=== PATIENT | female | born 1940 | race African-American/Black ===

== ENCOUNTER 2020-05-07 12:17 | Outpatient (REF) | payer MEDICARE, SELFPAY ==
[2020-05-07 13:22] LABS: MANUAL DIFF FLAG NO
[2020-05-07 13:25] LABS: Basophils Percent Auto 0.4 % (0-2); Eosinophils Absolute Auto 0.1 X10*3/uL (0.0-0.4); Eosinophils Percent Auto 0.9 % (0-4); Hematocrit 47.3 % (37-47); Hemoglobin 15.1 g/dl (12.0-16.0); Imm Gran Abs Auto 0.02 X10*3/uL (0.00-0.03); Imm Gran Pct Auto 0.3 % (0.0-0.4); Lymphocytes Absolute Auto 2.3 X10*3/uL (1.2-4.9); Lymphocytes Percent Auto 32.2 % (20-40); Mean Corpuscular HGB Conc 31.9 g/dl (31.0-35.0); Mean Corpuscular Hemoglobin 29.5 pg (27.0-33.0); Mean Corpuscular Volume 92.4 fL (80-98); Mean Platelet Volume 9.7 fL (9.4-12.3); Monocytes Absolute Auto 0.4 X10*3/uL (0.1-1.2); Monocytes Percent Auto 6.3 % (2-11); Neutrophils Absolute Auto 4.2 X10*3/uL (2.0-8.3); Neutrophils Percent Auto 59.9 % (45-73); Platelet Count 199 X10*3/uL (160-400); Red Blood Count 5.12 X10*6/uL (4.20-5.50); Red Cell Distribution Width 13.4 % (11.0-16.0)
[2020-05-07 13:51] LABS: Alanine Aminotransferase 20 U/L (0-31); Alkaline Phosphatase 80 U/L (39-117); Anion Gap 13 (12-20); Aspartate Amino Transferase 24 U/L (5-31); Bilirubin Total 0.4 mg/dL (0.0-1.0); Blood Urea Nitrogen 13 mg/dL (9-16); Calcium 9.5 mg/dL (8.4-10.2); Carbon Dioxide 31 mmol/L (22-29); Chloride 101 mmol/L (96-108); Cholesterol 158 mg/dL; Estimated Average Glucose 117 mg/dL; Estimated Glomerular Filt Rate > 60; Glucose Fasting 109 mg/dL (60-99); HDL Cholesterol 57 mg/dL; Hemoglobin A1c % 5.7 %; LDL Cholesterol Calculated 88 mg/dl; Potassium 5.2 mmol/l (3.3-5.1); Sodium 140 mmol/L (135-145); Total Protein 6.9 g/dL (6.5-8.0); Triglycerides 67 mg/dL
[2020-05-07 13:59] LABS: Creatinine Urine 173.72 mg/dL; Microalbum/Creatinine Ratio Ur 9.7 ug/mg cr
[2020-05-07 14:12] LABS: Free T4 (Free Thyroxine) 1.03 ng/dL (0.71-1.85); Thyroid Stimulating Hormone 0.67 uIU/mL (0.32-4.0)
[2020-05-07 14:16] LABS: Glucose Urine UA NEG (NEG); Leukocyte Esterase Urine NEG (NEG); Nitrite Urine NEG (NEG); PH 5.5 (5.0-8.0); Specific Gravity - Urine 1.025 (1.005-1.025); Urine Blood 1+ (NEG); Urine Ketones NEG (NEG); Urine Protein NEG (NEG-TRACE)
[2020-05-07 14:19] LABS: Appearance Urine HAZY; Color Urine YELLOW
[2020-05-07 15:06] LABS: Squamous Epithelial Cell Urine TRACE /LPF; WBC Urine 0-2 /HPF (0-4)
[2020-05-07 15:07] LABS: Mucus Urine 2+ /LPF
== END 2020-05-07 12:18 | disposition home or self-care (01) ==
LOC: HO.LAB 12:17
PROVIDERS: PCP Internal Medicine; Visit Provider Internal Medicine
DX: E11.9 Type 2 diabetes mellitus without complications (principal); E78.00 Pure hypercholesterolemia, unspecified; I10 Essential (primary) hypertension; E04.9 Nontoxic goiter, unspecified; R00.2 Palpitations; K21.9 Gastro-esophageal reflux disease without esophagitis
CPT/HCPCS: 36415; 80053; 80061; 81001; 82043; 83036; 84439; 84443; 85025

== ENCOUNTER 2020-12-17 10:30 | Outpatient (REF) | payer MEDICARE, SELFPAY ==
[2020-12-17 11:06] LABS: MANUAL DIFF FLAG NO
[2020-12-17 11:10] LABS: Basophils Percent Auto 0.4 % (0-2); Eosinophils Percent Auto 0.4 % (0-4); Hematocrit 46.1 % (37-47); Imm Gran Abs Auto 0.02 X10*3/uL (0.00-0.03); Imm Gran Pct Auto 0.3 % (0.0-0.4); Lymphocytes Absolute Auto 1.6 X10*3/uL (1.2-4.9); Lymphocytes Percent Auto 22.7 % (20-40); Mean Corpuscular HGB Conc 32.5 g/dl (31.0-35.0); Mean Corpuscular Hemoglobin 30.4 pg (27.0-33.0); Mean Corpuscular Volume 93.3 fL (80-98); Mean Platelet Volume 9.9 fL (9.4-12.3); Monocytes Absolute Auto 0.4 X10*3/uL (0.1-1.2); Monocytes Percent Auto 6.1 % (2-11); Neutrophils Absolute Auto 4.9 X10*3/uL (2.0-8.3); Neutrophils Percent Auto 70.1 % (45-73); Platelet Count 179 X10*3/uL (160-400); Red Blood Count 4.94 X10*6/uL (4.20-5.50); Red Cell Distribution Width 12.8 % (11.0-16.0)
[2020-12-17 11:16] LABS: Glucose Urine UA NEG (NEG); Leukocyte Esterase Urine NEG (NEG); Nitrite Urine NEG (NEG); PH 5.5 (5.0-8.0); Specific Gravity - Urine >= 1.030 (1.005-1.025); UACC Culture Trigger NO; Urine Blood TRACE (NEG); Urine Ketones NEG (NEG); Urine Protein TRACE MG/DL (NEG-TRACE)
[2020-12-17 11:18] LABS: Appearance Urine HAZY; Color Urine YELLOW
[2020-12-17 11:20] LABS: D Dimer 369 NG/ML
[2020-12-17 11:30] LABS: Mucus Urine 1+ /LPF; Squamous Epithelial Cell Urine 1+ /LPF
[2020-12-17 12:03] LABS: Alanine Aminotransferase 18 U/L (0-31); Albumin Level 4.3 g/dL (3.5-5.0); Alkaline Phosphatase 85 U/L (39-117); Anion Gap 11 (12-20); Aspartate Amino Transferase 21 U/L (5-31); Bilirubin Total 0.6 mg/dL (0.0-1.0); Blood Urea Nitrogen 16 mg/dL (9-16); Calcium 9.9 mg/dL (8.4-10.2); Carbon Dioxide 31 mmol/L (22-29); Chloride 104 mmol/L (96-108); Cholesterol 169 mg/dL; Estimated Glomerular Filt Rate > 60; Glucose Fasting 105 mg/dL (60-99); HDL Cholesterol 60 mg/dL; LDL Cholesterol Calculated 97 mg/dl; Potassium 4.7 mmol/L (3.3-5.1); Sodium 141 mmol/L (135-145); Triglycerides 61 mg/dL
[2020-12-17 12:07] LABS: Erythrocyte Sedimentation Rate 4 MM/HR (0-20)
[2020-12-17 12:12] LABS: B Type Natriuretic Peptide 44 pg/mL (<100)
[2020-12-17 12:14] LABS: Creatinine Urine 207.49 mg/dL
[2020-12-17 12:15] LABS: TSH reflex Free T4 0.57 uIU/mL (0.32-4.0)
[2020-12-17 12:32] LABS: Folate 18.1 ng/mL (> or = 4.0); Vitamin B12 599 pg/mL (200-900)
[2020-12-17 14:32] LABS: Estimated Average Glucose 120 mg/dL; Hemoglobin A1C 150.4715 umol/L; Hemoglobin A1c % 5.8 %
== END 2020-12-17 10:31 | disposition home or self-care (01) ==
LOC: HO.LAB 10:30
PROVIDERS: PCP Internal Medicine; Visit Provider Internal Medicine
DX: G62.9 Polyneuropathy, unspecified (principal); E04.9 Nontoxic goiter, unspecified; E78.00 Pure hypercholesterolemia, unspecified; R00.2 Palpitations; E11.9 Type 2 diabetes mellitus without complications; I10 Essential (primary) hypertension; K21.9 Gastro-esophageal reflux disease without esophagitis; R60.0 Localized edema; F17.200 Nicotine dependence, unspecified, uncomplicated
CPT/HCPCS: 36415; 80053; 80061; 81001; 82043; 82607; 82746; 83036; 83880; 84443; 85025; 85379; 85652

== ENCOUNTER 2021-03-26 11:57 | Outpatient (REF) | payer MEDICARE, SELFPAY ==
[2021-03-26 12:11] LABS: MANUAL DIFF FLAG NO
[2021-03-26 12:44] LABS: Basophils Percent Auto 0.3 % (0-2); Eosinophils Absolute Auto 0.1 X10*3/uL (0.0-0.4); Eosinophils Percent Auto 0.8 % (0-4); Hematocrit 47.2 % (37.0-47.0); Hemoglobin 15.1 g/dl (12.0-16.0); Imm Gran Abs Auto 0.01 X10*3/uL (0.00-0.03); Imm Gran Pct Auto 0.2 % (0.0-0.4); Lymphocytes Absolute Auto 1.7 X10*3/uL (1.2-4.9); Lymphocytes Percent Auto 28.5 % (20-40); Mean Corpuscular Hemoglobin 30.4 pg (27.0-33.0); Mean Platelet Volume 9.6 fL (9.4-12.3); Monocytes Absolute Auto 0.5 X10*3/uL (0.1-1.2); Neutrophils Absolute Auto 3.8 x10*3/uL (2.0-8.3); Neutrophils Percent Auto 62.2 % (45-73); Platelet Count 170 X10*3/uL (160-400); Red Blood Count 4.97 X10*6/uL (4.20-5.50); Red Cell Distribution Width 12.8 % (11.0-16.0); White Blood Count 6.1 X10*3/uL (4.8-10.8)
[2021-03-26 13:00] LABS: Estimated Average Glucose 126 mg/dL
[2021-03-26 13:18] LABS: Alanine Aminotransferase 18 U/L (0-31); Albumin Level 4.2 g/dL (3.5-5.0); Alkaline Phosphatase 83 U/L (39-117); Anion Gap 12 (12-20); Aspartate Amino Transferase 21 U/L (5-31); Bilirubin Total 0.6 mg/dL (0.0-1.0); Blood Urea Nitrogen 16 mg/dL (9-16); Calcium 9.9 mg/dL (8.4-10.2); Carbon Dioxide 32 mmol/L (22-29); Chloride 103 mmol/L (96-108); Cholesterol 177 mg/dL; Estimated Glomerular Filt Rate > 60; Glucose Fasting 122 mg/dL (60-99); HDL Cholesterol 58 mg/dL; LDL Cholesterol Calculated 102 mg/dl; Potassium 4.8 mmol/L (3.3-5.1); Sodium 142 mmol/L (135-145); Total Protein 7.1 g/dL (6.5-8.0); Triglycerides 85 mg/dL
[2021-03-26 13:42] LABS: TSH reflex Free T4 0.75 uIU/mL (0.32-4.0); Vitamin D 25-OH Total 36.8 ng/mL (>30)
[2021-03-26 13:52] LABS: Appearance Urine HAZY; Color Urine YELLOW; Glucose Urine UA NEG (NEG); Leukocyte Esterase Urine NEG (NEG); Nitrite Urine NEG (NEG); PH 6.5 (5.0-8.0); Specific Gravity - Urine 1.015 (1.005-1.025); UACC Culture Trigger NO; Urine Blood 2+ (NEG); Urine Ketones NEG (NEG); Urine Protein NEG (NEG-TRACE)
[2021-03-26 14:03] LABS: Squamous Epithelial Cell Urine 2+ /LPF; WBC Urine 0-2 /HPF (0-4)
[2021-03-26 14:04] LABS: Mucus Urine 1+ /LPF
[2021-03-26 14:17] LABS: Microalbum/Creatinine Ratio Ur 21.1 ug/mg cr
== END 2021-03-26 11:58 | disposition home or self-care (01) ==
LOC: HO.LAB 11:57
PROVIDERS: PCP Internal Medicine; Visit Provider Internal Medicine
DX: E78.00 Pure hypercholesterolemia, unspecified (principal); I10 Essential (primary) hypertension; E11.9 Type 2 diabetes mellitus without complications; E55.9 Vitamin D deficiency, unspecified
CPT/HCPCS: 36415; 80053; 80061; 81001; 82043; 82306; 83036; 84443; 85025

== ENCOUNTER 2021-07-22 12:01 | Outpatient (REF) | payer MEDICARE, SELFPAY ==
[2021-07-22 12:27] LABS: MANUAL DIFF FLAG NO
[2021-07-22 12:36] LABS: Basophils Percent Auto 0.3 % (0-2); Eosinophils Absolute Auto 0.1 X10*3/uL (0.0-0.4); Eosinophils Percent Auto 0.9 % (0-4); Hemoglobin 15.3 g/dl (12.0-16.0); Imm Gran Abs Auto 0.01 X10*3/uL (0.00-0.03); Imm Gran Pct Auto 0.1 % (0.0-0.4); Lymphocytes Percent Auto 29.7 % (20-40); Mean Corpuscular HGB Conc 32.6 g/dl (31.0-35.0); Mean Corpuscular Hemoglobin 30.4 pg (27.0-33.0); Mean Corpuscular Volume 93.4 fL (80.0-98.0); Mean Platelet Volume 9.1 fL (9.4-12.3); Monocytes Absolute Auto 0.5 X10*3/uL (0.1-1.2); Monocytes Percent Auto 7.6 % (2-11); Neutrophils Absolute Auto 4.2 x10*3/uL (2.0-8.3); Neutrophils Percent Auto 61.4 % (45-73); Platelet Count 170 X10*3/uL (160-400); Red Blood Count 5.03 X10*6/uL (4.20-5.50); Red Cell Distribution Width 12.9 % (11.0-16.0); White Blood Count 6.8 X10*3/uL (4.8-10.8)
[2021-07-22 13:10] LABS: Estimated Average Glucose 120 mg/dL; Hemoglobin A1c % 5.8 %
[2021-07-22 13:19] LABS: Alanine Aminotransferase 15 U/L (0-31); Albumin Level 4.1 g/dL (3.5-5.0); Alkaline Phosphatase 80 U/L (39-117); Anion Gap 12 (12-20); Aspartate Amino Transferase 20 U/L (5-31); Bilirubin Total 0.5 mg/dL (0.0-1.0); Blood Urea Nitrogen 15 mg/dL (9-16); Carbon Dioxide 31 mmol/L (22-29); Chloride 104 mmol/L (96-108); Cholesterol 161 mg/dL; Estimated Glomerular Filt Rate > 60; Glucose Fasting 107 mg/dL (60-99); HDL Cholesterol 57 mg/dL; LDL Cholesterol Calculated 92 mg/dl; Potassium 5.3 mmol/L (3.3-5.1); Sodium 142 mmol/L (135-145); Total Protein 6.9 g/dL (6.5-8.0); Triglycerides 61 mg/dL
[2021-07-22 13:22] LABS: TSH reflex Free T4 0.67 uIU/mL (0.32-4.0); Vitamin D 25-OH Total 33.4 ng/mL (>30)
== END 2021-07-22 12:02 | disposition home or self-care (01) ==
LOC: HO.LAB 12:01
PROVIDERS: PCP Internal Medicine; Visit Provider Internal Medicine
DX: E78.00 Pure hypercholesterolemia, unspecified (principal); I10 Essential (primary) hypertension; E11.9 Type 2 diabetes mellitus without complications; E55.9 Vitamin D deficiency, unspecified
CPT/HCPCS: 36415; 80053; 80061; 82306; 83036; 84443; 85025

== ENCOUNTER 2021-12-08 10:04 | Outpatient (REF) | payer MEDICARE, SELFPAY ==
[2021-12-08 10:29] LABS: MANUAL DIFF FLAG NO
[2021-12-08 10:45] LABS: Basophils Percent Auto 0.5 % (0-2); Eosinophils Absolute Auto 0.1 X10*3/uL (0.0-0.4); Eosinophils Percent Auto 1.6 % (0-4); Hematocrit 48.2 % (37.0-47.0); Hemoglobin 15.4 g/dl (12.0-16.0); Imm Gran Abs Auto 0.01 X10*3/uL (0.00-0.03); Imm Gran Pct Auto 0.2 % (0.0-0.4); Lymphocytes Absolute Auto 1.5 X10*3/uL (1.2-4.9); Lymphocytes Percent Auto 27.4 % (20-40); Mean Corpuscular Hemoglobin 29.9 pg (27.0-33.0); Mean Corpuscular Volume 93.6 fL (80.0-98.0); Mean Platelet Volume 9.4 fL (9.4-12.3); Monocytes Absolute Auto 0.3 X10*3/uL (0.1-1.2); Monocytes Percent Auto 6.1 % (2-11); Neutrophils Absolute Auto 3.6 x10*3/uL (2.0-8.3); Neutrophils Percent Auto 64.2 % (45-73); Platelet Count 190 X10*3/uL (160-400); Red Blood Count 5.15 X10*6/uL (4.20-5.50); Red Cell Distribution Width 13.2 % (11.0-16.0); White Blood Count 5.5 X10*3/uL (4.8-10.8)
[2021-12-08 10:54] LABS: Estimated Average Glucose 126 mg/dL
[2021-12-08 11:17] LABS: Alanine Aminotransferase 14 U/L (0-31); Albumin Level 4.1 g/dL (3.5-5.0); Alkaline Phosphatase 79 U/L (39-117); Anion Gap 15 (12-20); Aspartate Amino Transferase 21 U/L (5-31); Bilirubin Total 0.6 mg/dL (0.0-1.0); Blood Urea Nitrogen 15 mg/dL (9-16); Calcium 9.7 mg/dL (8.4-10.2); Carbon Dioxide 30 mmol/L (22-29); Chloride 102 mmol/L (96-108); Cholesterol 187 mg/dL; Estimated Glomerular Filt Rate > 60; Glucose Fasting 130 mg/dL (60-99); HDL Cholesterol 64 mg/dL; LDL Cholesterol Calculated 110 mg/dl; Potassium 5.2 mmol/L (3.3-5.1); Sodium 142 mmol/L (135-145); Total Protein 7.1 g/dL (6.5-8.0); Triglycerides 68 mg/dL
[2021-12-08 11:43] LABS: TSH reflex Free T4 0.88 uIU/mL (0.32-4.0); Vitamin D 25-OH Total 33.1 ng/mL (>30)
== END 2021-12-08 10:05 | disposition home or self-care (01) ==
LOC: HO.LAB 10:04
PROVIDERS: PCP Internal Medicine; Visit Provider Internal Medicine
DX: E11.9 Type 2 diabetes mellitus without complications (principal); I10 Essential (primary) hypertension; E78.00 Pure hypercholesterolemia, unspecified; E55.9 Vitamin D deficiency, unspecified
CPT/HCPCS: 36415; 80053; 80061; 82306; 83036; 84443; 85025

== ENCOUNTER → 2022-01-06 13:07 | Outpatient (BNVA) | payer MEDICARE, SELFPAY | PROVIDERS: PCP Internal Medicine; Visit Provider Surgery Vascular Surgery | DX: I83.11 Varicose veins of right lower extremity with inflammation (principal); L97.929 Non-pressure chronic ulcer of unspecified part of left lower leg with unspecified severity; L97.919 Non-pressure chronic ulcer of unspecified part of right lower leg with unspecified severity | CPT/HCPCS: 99202 ==

== ENCOUNTER 2022-01-14 12:44 | Outpatient (RCR) | payer MEDICARE, SELFPAY | END 2022-01-15 11:07 | disposition home or self-care (01) | LOC: HO.WCC 12:44 | PROVIDERS: PCP Internal Medicine; Visit Provider Physician Assistant | DX: E11.622 Type 2 diabetes mellitus with other skin ulcer (principal); I87.333 Chronic venous hypertension (idiopathic) with ulcer and inflammation of bilateral lower extremity; L97.829 Non-pressure chronic ulcer of other part of left lower leg with unspecified severity; L97.819 Non-pressure chronic ulcer of other part of right lower leg with unspecified severity; B87.1 Wound myiasis; F17.210 Nicotine dependence, cigarettes, uncomplicated; Z79.84 Long term (current) use of oral hypoglycemic drugs | CPT/HCPCS: 99213 ==

== ENCOUNTER 2022-01-14 16:15 | Inpatient (IN) | payer MEDICARE, SELFPAY ==
--- NOTE | ~2022-01-14 | US_ITS ---
EXAMINATION: US VENOUS ULTRASOUND WITH DOPPLER LOWER EXTREMITY, BILATERAL CLINICAL INFORMATION: Swelling. Rule out DVT and abscess COMPARISON: None TECHNIQUE: Ultrasound of the deep veins is performed from the hip to the calf with compression sonography and color and pulse Doppler assessment. Spectral analysis with color-flow imaging is performed. FINDINGS: RIGHT: There is normal venous compression and respiratory variation and augmented flow. The visualized common femoral vein, superficial femoral vein, profunda femoral vein, popliteal vein, and the trifurcation region shows no evidence of deep venous thrombosis. LEFT: There is normal venous compression and respiratory variation and augmented flow. The visualized common femoral vein, superficial femoral vein, profunda femoral vein, popliteal vein, and the trifurcation region shows no evidence of deep venous thrombosis. No Bonilla's cyst or abscess. US/US venous duplex LE BI IMPRESSION: No DVT demonstrated in the bilateral lower extremity. No abscess seen.
--- NOTE | ~2022-01-14 | XR_ITS ---
EXAMINATION: XR CHEST CLINICAL INFORMATION: Hypoxia COMPARISON: 10/04/2018 TECHNIQUE: Frontal view of the chest was obtained. FINDINGS: Again noted are hyperinflated lungs consistent with COPD with flattening of the diaphragms. Heart size normal. No infiltrates, effusions, lung masses or pneumothorax is seen. Since the prior study, the patient has lost considerable weight. XR/XR chest 1V IMPRESSION: COPD. No acute intrathoracic disease. Significant interval weight loss.
[2022-01-14 17:00] VITALS: BP 128/68; PULSE 79; RESP 18; TEMP 37.2; O2SAT 88; BMI 17.2
--- NOTE | 2022-01-14 17:14 | ECG_ITS ---
Test Reason : LOW 02 STAT Blood Pressure : / mmHG Vent. Rate : 076 BPM Atrial Rate : 076 BPM P-R Int : 106 ms QRS Dur : 068 ms QT Int : 348 ms P-R-T Axes : 089 060 037 degrees QTc Int : 391 ms Sinus rhythm with short MN with Premature atrial complexes Nonspecific T wave abnormality Abnormal ECG When compared with ECG of 21-JUN-2014 15:23, Premature atrial complexes are now Present Questionable change in QRS axis Nonspecific T wave abnormality is now Present Referred By: Stephanie Infante Electronically Signed By:TIEN CAAL
[2022-01-14 18:52] LABS: MANUAL DIFF FLAG NO
--- NOTE | 2022-01-14 18:58 | ED_ITS ---
HPI - General Adult General Chief complaint: General Medical Stated complaint: ?infection in legs..swollen sent from dr office Time Seen by Provider: 01/14/22 17:18 Source: patient Mode of arrival: ambulatory Limitations: no limitations History of Present Illness HPI narrative: Patient comes to the emergency room from the wound clinic. Patient has chronic venous ulcers, today it was the 1st day that she had an appointment at the Wound Clinic. Patient has maggots in her right leg, she was sent to the emergency room for further management. Patient denies fever chills. Related Data Home Medications Medication Instructions Recorded Confirmed albuterol sulfate 90 mcg/actuation 2 puff inhalation Q6H PRN 05/10/20 12/09/21 aerosol inhaler (ProAir HFA) Previous Rx's Medication Instructions Recorded miscellaneous medical supply See Rx Instructions miscellaneous 01/13/21 .COMPLEX #1 ea compr.stocking,knee,long,small #12 ea 02/17/21 ezetimibe 10 mg-simvastatin 80 mg 1 tab PO DAILY #90 tabs 03/25/21 tablet glyburide 2.5 mg tablet 2.5 mg PO QAM #90 tabs 10/13/21 doxycycline monohydrate 100 mg 100 mg PO BID 14 days #28 caps 12/09/21 capsule metformin 500 mg tablet 500 mg PO BID #60 tabs 12/21/21 Allergies Allergy/AdvReac Type Severity Reaction Status Date / Time penicillin V Allergy Unknown anaphylaxis Verified 01/06/22 13:13 Penicillins [PENICILLINS] Allergy Unknown HEART STOPS Verified 01/06/22 13:13 Review of Systems Review of Systems: Constitutional : No Weight loss, No Fever, No Chills, No Night Sweats, No Fatigue, No Malaise ENT/Mouth : No Hearing loss, No Ear Pain, No Nasal Congestion, No Sinus Pain, No Hoarseness, No sore throat, No Rhinorrhea, No Swallowing Difficulty Eyes: No Eye Pain, No Swelling, No Redness, No Foreign Body, No Discharge, No Vision Changes Cardiovascular : No Chest Pain, No SOB, No Dyspnea on Exertion, No Orthopnea, No Edema, No Palpitations Respiratory : No Cough, No Sputum, No Wheezing, No Smoke Exposure, No Dyspnea Gastrointestinal : No Nausea, No Vomiting, No Diarrhea, No Constipation, No abdominal Pain, No Hematochezia, No Melena Genitourinary : no irregular bleeding, No Dysuria, No Urinary Frequency, No He maturia, No Urinary Incontinence, No Urgency, No Flank Pain, No Urinary Flow Changes, No Hesitancy Musculoskeletal : No joint pain, No Myalgias, No Joint Swelling Skin : Complaining of chronic venous ulcers, possibly infected Neuro : No Weakness, No Numbness, No Paresthesias, No Loss of Consciousness, No Dizziness, No Headache Psych : No Anxiety/Panic, No Depression, No SI/HI/AH/VH, No Social Issues, Heme/Lymph: No Bruising, No Bleeding,No Lymphadenopathy Endocrine : No Polyuria, No Polydipsia, No Temperature Intolerance [facility] Past Medical History Medical History Anxiety Benign essential hypertension COPD (chronic obstructive pulmonary disease) Diabetes mellitus Diffuse goiter GERD without esophagitis Intermittent palpitations Peripheral polyneuropathy Pure hypercholesterolemia Smoker Surgical History History of appendectomy History of laparoscopic cholecystectomy History of tonsillectomy History of total abdominal hysterectomy S/P BSO (bilateral salpingo-oophorectomy) Family History Family History Father No problems noted. Mother No problems noted. Other Substance abuse Social History Social History Housing: House Alcohol intake: former Patient Tobacco Use Status: Current everyday Tobacco user Cigarettes Per Day: 10 e-Cigarette/Vaping Use: Never Used Second Hand Smoke Exposure: Yes Advance Directives: No Advance Directives Information Provided: No service: No Current occupational status: retired Cognitive needs: No Hearing needs: No Vision needs: Yes (reading glasses) Physical Exam ED Vital Signs: Vital Signs - 24 hr 01/14/22 17:00 01/14/22 19:20 Temperature 99.0 F 98.0 F Pulse Rate 79 81 Respiratory Rate 18 18 Blood Pressure 128/68 136/60 Pulse Oximetry 88 L 91 L Oxygen Delivery Method Room Air Room Air BMI result Body Mass Index 17.2 Const Other: Appearance: Alert. Oriented X3. No acute distress. Eyes: Pupils equal, round and reactive to light. ENT: Pharynx normal. Neck: Normal inspection. Neck supple. No lymph nodes noted. No crepitus CVS: Normal heart rate and rhythm. Pulses normal. Normal S1 and S2 Respiratory: No respiratory distress. Breath sounds normal. No Wheezing. No rales Abdomen: Soft and nontender. No rigidity. No distention. Skin: Skin warm and dry. Normal skin color. Normal skin turgor. Extremities: +1 pitting edema bilaterally. Patient has chronic venous ulcers in both legs. However, the right leg has maggots Neuro: Oriented X 3. No motor deficit. No sensory deficit. Moving all extremities. No slurred speech. CN 2 through 12 grossly intact Psych: calm, cooperative, normal affect Course Course Course Narrative: Patient's white blood cell count and lactic acid within normal limits. Patient does not have a fever, blood pressure within normal limits. Sepsis not suspected. The wound was clean with hydrogen peroxide, the the tissue was debrided. I discussed the patient with Dr. Negro, patient has very poor follow-up and care at home, requesting that the patient gets admitted. Patient is to be NPO after midnight Patient was started on vancomycin Medical Decision Making Lab Data Result diagrams: 01/14/22 18:45 01/14/22 19:18 Labs: Lab Results 01/14/22 01/14/22 01/14/22 Range/Units 18:45 18:45 18:45 WBC 7.9 (4.8-10.8) X10*3/uL RBC 4.90 (4.20-5.50) X10*6/uL Hgb 14.8 (12.0-16.0) g/dl Hct 44.8 (37.0-47.0) % MCV 91.4 (80.0-98.0) fL MCH 30.2 (27.0-33.0) pg MCHC 33.0 (31.0-35.0) g/dl RDW 13.2 (11.0-16.0) % Plt Count 177 (160-400) X10*3/uL MPV 9.2 L (9.4-12.3) fL Immature Gran % (Auto) 0.6 H (0.0-0.4) % Neut % (Auto) 74.1 H (45-73) % Lymph % (Auto) 17.9 L (20-40) % Alexander % (Auto) 6.5 (2-11) % Eos % (Auto) 0.6 (0-4) % Baso % (Auto) 0.3 (0-2) % Lymph # (Auto) 1.4 (1.2-4.9) X10*3/uL Alexander # (Auto) 0.5 (0.1-1.2) X10*3/uL Eos # (Auto) 0.1 (0.0-0.4) X10*3/uL Baso # (Auto) 0.0 (0.0-0.2) X10*3/uL Abs Immat Gran (auto) 0.05 H (0.00-0.03) X10*3/uL Absolute Neuts (auto) 5.8 (2.0-8.3) x10*3/uL Absolute Nucleated RBC 0.000 (0.0-0.012) X10*3/uL Nucleated RBC % (auto) 0.0 (0.0-0.2) /100WBC Sodium (135-145) mmol/L Potassium (3.3-5.1) mmol/L Chloride (96-108) mmol/L Carbon Dioxide (22-29) mmol/L Anion Gap (12-20) BUN (9-16) mg/dL Creatinine (0.5-1.4) mg/dL Estim Creat Clear Calc Estimated GFR Random Glucose (60-115) mg/dL Lactic Acid 1.5 (0.5-2.0) mmol/L Calcium (8.4-10.2) mg/dL Total Bilirubin (0.0-1.0) mg/dL AST (5-31) U/L ALT (0-31) U/L Alkaline Phosphatase (39-117) U/L Total Protein (6.5-8.0) g/dL Albumin (3.5-5.0) g/dL COVID-19 (VINAY) Negative (Negative) COVID-19 Clin Com See Note 01/14/22 Range/Units 19:18 WBC (4.8-10.8) X10*3/uL RBC (4.20-5.50) X10*6/uL Hgb (12.0-16.0) g/dl Hct (37.0-47.0) % MCV (80.0-98.0) fL MCH (27.0-33.0) pg MCHC (31.0-35.0) g/dl RDW (11.0-16.0) % Plt Count (160-400) X10*3/uL MPV (9.4-12.3) fL Immature Gran % (Auto) (0.0-0.4) % Neut % (Auto) (45-73) % Lymph % (Auto) (20-40) % Alexander % (Auto) (2-11) % Eos % (Auto) (0-4) % Baso % (Auto) (0-2) % Lymph # (Auto) (1.2-4.9) X10*3/uL Alexander # (Auto) (0.1-1.2) X10*3/uL Eos # (Auto) (0.0-0.4) X10*3/uL Baso # (Auto) (0.0-0.2) X10*3/uL Abs Immat Gran (auto) (0.00-0.03) X10*3/uL Absolute Neuts (auto) (2.0-8.3) x10*3/uL Absolute Nucleated RBC (0.0-0.012) X10*3/uL Nucleated RBC % (auto) (0.0-0.2) /100WBC Sodium 143 (135-145) mmol/L Potassium 5.0 (3.3-5.1) mmol/L Chloride 103 (96-108) mmol/L Carbon Dioxide 27 (22-29) mmol/L Anion Gap 18 (12-20) BUN 10 (9-16) mg/dL Creatinine 0.76 (0.5-1.4) mg/dL Estim Creat Clear Calc 41.7 Estimated GFR > 60 Random Glucose 104 (60-115) mg/dL Lactic Acid (0.5-2.0) mmol/L Calcium 9.5 (8.4-10.2) mg/dL Total Bilirubin 0.2 (0.0-1.0) mg/dL AST 21 (5-31) U/L ALT 16 (0-31) U/L Alkaline Phosphatase 73 (39-117) U/L Total Protein 6.5 (6.5-8.0) g/dL Albumin 3.9 (3.5-5.0) g/dL COVID-19 (VINAY) (Negative) COVID-19 Clin Com Critical Care Time Critical Care Time Critical Care Time: Yes Total Critical Care Time: 30 Attestation: I have personally provided critical care time. Time includes review of lab data, radiology results, discussion with consultants, and monitoring for potential decompensation. Intervention performed as documented. Discharge Plan Discharge Clinical Impression: troy Jimenez Patient Disposition: Admitted As Inpatient
[2022-01-14 19:02] LABS: Basophils Percent Auto 0.3 % (0-2); Eosinophils Absolute Auto 0.1 X10*3/uL (0.0-0.4); Eosinophils Percent Auto 0.6 % (0-4); Hematocrit 44.8 % (37.0-47.0); Hemoglobin 14.8 g/dl (12.0-16.0); Imm Gran Abs Auto 0.05 X10*3/uL (0.00-0.03); Imm Gran Pct Auto 0.6 % (0.0-0.4); Lymphocytes Absolute Auto 1.4 X10*3/uL (1.2-4.9); Lymphocytes Percent Auto 17.9 % (20-40); Mean Corpuscular Hemoglobin 30.2 pg (27.0-33.0); Mean Corpuscular Volume 91.4 fL (80.0-98.0); Mean Platelet Volume 9.2 fL (9.4-12.3); Monocytes Absolute Auto 0.5 X10*3/uL (0.1-1.2); Monocytes Percent Auto 6.5 % (2-11); Neutrophils Absolute Auto 5.8 x10*3/uL (2.0-8.3); Neutrophils Percent Auto 74.1 % (45-73); Platelet Count 177 X10*3/uL (160-400); Red Cell Distribution Width 13.2 % (11.0-16.0); White Blood Count 7.9 X10*3/uL (4.8-10.8)
[2022-01-14 19:08] LABS: Lactic Acid 1.5 mmol/L (0.5-2.0)
[2022-01-14 19:10] LABS: COVID-19 Test Negative (Negative)
[2022-01-14 19:20] VITALS: BP 136/60; PULSE 81; RESP 18; TEMP 36.7; O2SAT 91
[2022-01-14 19:43] LABS: Alanine Aminotransferase 16 U/L (0-31); Albumin Level 3.9 g/dL (3.5-5.0); Alkaline Phosphatase 73 U/L (39-117); Anion Gap 18 (12-20); Aspartate Amino Transferase 21 U/L (5-31); Bilirubin Total 0.2 mg/dL (0.0-1.0); Blood Urea Nitrogen 10 mg/dL (9-16); Calcium 9.5 mg/dL (8.4-10.2); Carbon Dioxide 27 mmol/L (22-29); Chloride 103 mmol/L (96-108); Creatinine Clr Calc Pharmacy 41.7; Estimated Glomerular Filt Rate > 60; Glucose Random 104 mg/dL (60-115); Sodium 143 mmol/L (135-145); Total Protein 6.5 g/dL (6.5-8.0)
--- NOTE | 2022-01-14 20:06 | PM.IMHP ---
History of Present Illness Date of Service: 01/14/22 Chief Complaint: leg wounds 81-year-old female with a past medical history of diabetes, varicose veins, chronic bilateral lymphedema, anxiety, depression, bilateral leg wounds-follows with Wound Clinic, tobacco dependence, COPD, hypertension, peripheral neuropathy presented to the hospital today with a chief complaint of bilateral leg wounds. Patient mentions that she does not check on her wound state likely; has called her vascular surgery Dr. Dr. Negro who suggested her to go to the clinic; after patient was being seen in the clinic patient was supposed to go to the ER given left leg wounds has maggots. Patient denies any pain. Reports she has swelling but always has swelling. Denies any fevers. Denies any chest pain or palpitations. Denies any GI symptoms. Reports he is independent of ADLs. Review of all other systems is negative except mentioned above ER course: Per ER team patient noted to have bilateral legs, left leg wounds have maggots in place; had debridement done with cleaning of the wounds; discussed with Dr. Negro-who suggested admission to the hospital for IV antibiotics and possible further debridement in the morning. Recommended to give the patient NPO. Dr. Negro also mentioned that patient has for home conditions. Labs were essentially benign, patient was afebrile; patient was given IV vancomycin. Admitted to the hospital for further management [facility] Medical History Anxiety Benign essential hypertension COPD (chronic obstructive pulmonary disease) Diabetes mellitus Diffuse goiter GERD without esophagitis Intermittent palpitations Peripheral polyneuropathy Pure hypercholesterolemia Smoker Family History Father No problems noted. Mother No problems noted. Other Substance abuse Surgical History History of appendectomy History of laparoscopic cholecystectomy History of tonsillectomy History of total abdominal hysterectomy S/P BSO (bilateral salpingo-oophorectomy) Social History Housing: House Alcohol intake: former Patient Tobacco Use Status: Current everyday Tobacco user Cigarettes Per Day: 10 e-Cigarette/Vaping Use: Never Used Second Hand Smoke Exposure: Yes Advance Directives: No Advance Directives Information Provided: No service: No Current occupational status: retired Cognitive needs: No Hearing needs: No Vision needs: Yes (reading glasses) Meds Allergies Allergy/AdvReac Type Severity Reaction Status Date / Time penicillin V Allergy Unknown anaphylaxis Verified 01/06/22 13:13 Penicillins [PENICILLINS] Allergy Unknown HEART STOPS Verified 01/06/22 13:13 Active Medications: Current Medications Vancomycin HCl 1,000 mg/ (Sodium Chloride) 270 mls @ 270 mls/hr IV ONCE ONE Stop: 01/14/22 20:56 Pharmacy Consult (Consult Rx Vancomycin Dosing) 1 each MISCELLANE DAILY PRN PRN Reason: Consult order Home Medications Medication Instructions Recorded Confirmed Last Taken Type albuterol sulfate 90 mcg/actuation 2 puff inhalation Q6H PRN Wheezing 05/10/20 01/14/22 01/14/22 09:00 History aerosol inhaler (ProAir HFA) Physical Exam Vital Signs and Narrative: Vital Signs: Last Vital Signs Temp 98.0 F 01/14/22 19:20 Pulse 81 01/14/22 19:20 Resp 18 01/14/22 19:20 BP 136/60 01/14/22 19:20 Pulse Ox 91 L 01/14/22 19:20 O2 Del Method 01/14/22 19:20 BMI result Body Mass Index 17.2 Gen: Appears be in no acute distress HEENT: NCAT, Moist mucosa. Pulmonary: Vesicular breath sounds, fair air entry CVS: Normal S1-S2 Abdomen: BS+, Soft, Nontender Extremities: Warm well perfused; left leg wound as shown in the picture below Neuro: Alert and awake. Results Labs CBC and Chem 7: 01/14/22 18:45 01/14/22 19:18 Labs: Laboratory Results - last 24 hr 01/14/22 01/14/22 01/14/22 18:45 18:45 18:45 MCV 91.4 MCH 30.2 MCHC 33.0 RDW 13.2 Plt Count 177 MPV 9.2 L Immature Gran % (Auto) 0.6 H Neut % (Auto) 74.1 H Lymph % (Auto) 17.9 L [place] % (Auto) 6.5 Eos % (Auto) 0.6 Baso % (Auto) 0.3 Lymph # (Auto) 1.4 [place] # (Auto) 0.5 Eos # (Auto) 0.1 Baso # (Auto) 0.0 Abs Immat Gran (auto) 0.05 H Absolute Neuts (auto) 5.8 Absolute Nucleated RBC 0.000 Nucleated RBC % (auto) 0.0 Anion Gap Estim Creat Clear Calc Estimated GFR Random Glucose Lactic Acid 1.5 Calcium Total Bilirubin AST ALT Alkaline Phosphatase Total Protein Albumin COVID-19 (VINAY) Negative COVID-19 Clin Com See Note 01/14/22 19:18 MCV MCH MCHC RDW Plt Count MPV Immature Gran % (Auto) Neut % (Auto) Lymph % (Auto) [place] % (Auto) Eos % (Auto) Baso % (Auto) Lymph # (Auto) [place] # (Auto) Eos # (Auto) Baso # (Auto) Abs Immat Gran (auto) Absolute Neuts (auto) Absolute Nucleated RBC Nucleated RBC % (auto) Anion Gap 18 Estim Creat Clear Calc 41.7 Estimated GFR > 60 Random Glucose 104 Lactic Acid Calcium 9.5 Total Bilirubin 0.2 AST 21 ALT 16 Alkaline Phosphatase 73 Total Protein 6.5 Albumin 3.9 COVID-19 (VINAY) COVID-19 Clin Com Imaging Radiologist's Impressions: Impressions Chest X-Ray 01/14/22 18:30 IMPRESSION: COPD. No acute intrathoracic disease. Significant interval weight loss. Assessment and Plan (1) Infestation, maggot: Status: Acute Plan 81-year-old female with a past medical history of diabetes, varicose veins, chronic bilateral lymphedema, anxiety, depression, bilateral leg wounds-follows with Wound Clinic, tobacco dependence, COPD, hypertension, peripheral neuropathy presented to the hospital today with a chief complaint of bilateral leg wounds. Admitted for following Bilateral leg wounds: Patient on presentation noted to have maggots in the left leg wound-status post debridement in the ER. Dr. Negro was notified who suggested NPO after midnight in and to continue antibiotics Continue IV vancomycin Will obtain venous duplex, nonvascular ultrasound Will also consult ID History of diabetes: Insulin sliding scale DVT prophylaxis: Lovenox Code status: Full code Disposition: Case management consult/social work faculty member consult for safe disposition plan/home assessment. Quality Stroke Does the patient have a stroke diagnosis?: No VTE Prior VTE?: No VTE Risk Level:: Medical - moderate - high VTE Device Contraindication: Treatment Not Indicated VTE Drug Contraindication: N/A - Med Ordered
[2022-01-14] MEDS: vancomycin HCL 1,000 MG in 0.9 % Sodium Chloride 250 ML 270 MG IV (21:07)
[2022-01-14] MEDS: Enoxaparin Sodium 40 MG/0.4 ML SYRINGE SUBCUT (21:08)
[2022-01-14 23:55] VITALS: BP 144/65; PULSE 81; RESP 18; O2SAT 93
[2022-01-15] VITALS (7 sets, daily range): BP systolic 128–159; BP diastolic 53–74; PULSE 71–87; RESP 16–20; TEMP 36.3–37.1; O2SAT 92–98; BMI 16.9
[2022-01-15 06:06] LABS: MANUAL DIFF FLAG NO
[2022-01-15 06:08] LABS: Basophils Percent Auto 0.3 % (0-2); Eosinophils Percent Auto 0.6 % (0-4); Hematocrit 43.8 % (37.0-47.0); Hemoglobin 14.4 g/dl (12.0-16.0); Imm Gran Abs Auto 0.01 X10*3/uL (0.00-0.03); Imm Gran Pct Auto 0.1 % (0.0-0.4); Lymphocytes Absolute Auto 1.6 X10*3/uL (1.2-4.9); Lymphocytes Percent Auto 21.5 % (20-40); Mean Corpuscular HGB Conc 32.9 g/dl (31.0-35.0); Mean Corpuscular Hemoglobin 30.3 pg (27.0-33.0); Mean Corpuscular Volume 92.2 fL (80.0-98.0); Mean Platelet Volume 9.2 fL (9.4-12.3); Monocytes Absolute Auto 0.6 X10*3/uL (0.1-1.2); Monocytes Percent Auto 7.9 % (2-11); Neutrophils Absolute Auto 5.1 x10*3/uL (2.0-8.3); Neutrophils Percent Auto 69.6 % (45-73); Platelet Count 166 X10*3/uL (160-400); Red Blood Count 4.75 X10*6/uL (4.20-5.50); Red Cell Distribution Width 13.2 % (11.0-16.0); White Blood Count 7.3 X10*3/uL (4.8-10.8)
[2022-01-15 06:33] LABS: Anion Gap 14 (12-20); Blood Urea Nitrogen 10 mg/dL (9-16); Carbon Dioxide 27 mmol/L (22-29); Chloride 104 mmol/L (96-108); Creatinine Clr Calc Pharmacy 44.6; Estimated Glomerular Filt Rate > 60; Glucose Random 106 mg/dL (60-115); Potassium 4.2 mmol/L (3.3-5.1); Sodium 141 mmol/L (135-145)
[2022-01-15 07:24] LABS: Glucose, Whole Blood 92 mg/dL (60-115)
--- NOTE | 2022-01-15 07:28 | HO.PM.IMPN ---
Subjective Subjective Date of Service: 01/15/22 Interval History: Seen in f/u for infected leg wound interim history: no pain, wants to go home Review of Systems Gen: no fever Resp: no sob, no cough CV: no chest, no RUTLEDGE, no leg edema GI: No n/v, no abd pain Neuro: No confusion Skin: wounds on legs Physical Exam Vital Signs: Vital Signs: Last Vital Signs Temp 98.0 F 01/14/22 19:20 Pulse 80 01/15/22 01:59 Resp 20 01/15/22 01:59 BP 152/53 H 01/15/22 01:59 Pulse Ox 92 01/15/22 01:59 O2 Del Method 01/15/22 01:59 O2 Flow Rate 2 01/15/22 01:59 BMI result Body Mass Index 17.2 Resp: Effort & Inspection: normal respiratory effort and able to speak in complete sentences Cardio: Rate: regular rate Heart sounds: S1 normal heart sound present and S2 normal heart sound present Skin: Other: +2 edema, Large dry excoriated area CEAP Classification C6 - active ulceration Ep - Etiology Primary As - superficial veins P - reflux Extrem: Other: Objective Data Active Medications Acetaminophen (Acetaminophen 325 Mg Tablet) 650 mg PO Q6H PRN PRN Reason: Pain, Mild (Pain Scale 1-3) Dextrose (Dextrose 50 % 25 Gm/50 Ml Syringe) 25 gm IVPUSH Q15M PRN; Protocol PRN Reason: per Hypoglycemia Standing Ord. Enoxaparin Sodium (Enoxaparin Sodium 40 Mg/0.4 Ml Syringe) 40 mg SUBCUT Q24H [facility] Last Admin: 01/14/22 21:08 Dose: 40 mg Documented By: ANGELICA Glucose (Glucose Gel 15 Gm Gel..Gram.) 15 gm PO Q15M PRN; Protocol PRN Reason: per Hypoglycemia Standing Ord. Vancomycin HCl 1,000 mg/ (Sodium Chloride) 270 mls @ 270 mls/hr IV Q24H [facility] Insulin Human Lispro (Insulin Lispro 100 Unit/Ml 3 Ml Vial) 0 unit SUBCUT QIDACHS [facility]; Protocol Last Admin: 01/14/22 20:55 Dose: Not Given Documented By: ANGELICA Non-Admin Reason: BS 104 Melatonin (Melatonin 3 Mg Tablet) 6 mg PO BEDTIME PRN PRN Reason: Insomnia Pharmacy Consult (Consult Rx Vancomycin Dosing) 1 each MISCELLANE DAILY PRN PRN Reason: Consult order Pharmacy Consult (Consult Rx Vancomycin Dosing) 1 each MISCELLANE DAILY PRN PRN Reason: Consult order Senna (Sennosides 8.6 Mg Tablet) 17.2 mg PO BEDTIME PRN PRN Reason: Constipation Sodium Chloride (0.9 % Sodium Chloride Flush 3 Ml Syringe) 3 ml IVFLUSH QSHIFT [facility] Last Admin: 01/15/22 00:00 Dose: Not Given Documented By: ANGELICA Non-Admin Reason: vanco still infusing Labs CBC & Chem 7: 01/15/22 04:53 01/15/22 04:53 Labs: Laboratory Results - last 24 hr 01/14/22 01/14/22 01/14/22 18:45 18:45 18:45 MCV 91.4 MCH 30.2 MCHC 33.0 RDW 13.2 Plt Count 177 MPV 9.2 L Immature Gran % (Auto) 0.6 H Neut % (Auto) 74.1 H Lymph % (Auto) 17.9 L Ross % (Auto) 6.5 Eos % (Auto) 0.6 Baso % (Auto) 0.3 Lymph # (Auto) 1.4 Ross # (Auto) 0.5 Eos # (Auto) 0.1 Baso # (Auto) 0.0 Abs Immat Gran (auto) 0.05 H Absolute Neuts (auto) 5.8 Absolute Nucleated RBC 0.000 Nucleated RBC % (auto) 0.0 Anion Gap Estim Creat Clear Calc Estimated GFR POC Glucose Random Glucose Lactic Acid 1.5 Calcium Total Bilirubin AST ALT Alkaline Phosphatase Total Protein Albumin COVID-19 (VINAY) Negative COVID-19 Clin Com See Note 01/14/22 01/15/22 01/15/22 19:18 04:53 04:53 MCV 92.2 MCH 30.3 MCHC 32.9 RDW 13.2 Plt Count 166 MPV 9.2 L Immature Gran % (Auto) 0.1 Neut % (Auto) 69.6 Lymph % (Auto) 21.5 Ross % (Auto) 7.9 Eos % (Auto) 0.6 Baso % (Auto) 0.3 Lymph # (Auto) 1.6 Ross # (Auto) 0.6 Eos # (Auto) 0.0 Baso # (Auto) 0.0 Abs Immat Gran (auto) 0.01 Absolute Neuts (auto) 5.1 Absolute Nucleated RBC 0.000 Nucleated RBC % (auto) 0.0 Anion Gap 18 14 Estim Creat Clear Calc 41.7 44.6 Estimated GFR > 60 > 60 POC Glucose Random Glucose 104 106 Lactic Acid Calcium 9.5 9.0 Total Bilirubin 0.2 AST 21 ALT 16 Alkaline Phosphatase 73 Total Protein 6.5 Albumin 3.9 COVID-19 (VINAY) COVID-19 Clin Com 01/15/22 07:18 MCV MCH MCHC RDW Plt Count MPV Immature Gran % (Auto) Neut % (Auto) Lymph % (Auto) Ross % (Auto) Eos % (Auto) Baso % (Auto) Lymph # (Auto) Ross # (Auto) Eos # (Auto) Baso # (Auto) Abs Immat Gran (auto) Absolute Neuts (auto) Absolute Nucleated RBC Nucleated RBC % (auto) Anion Gap Estim Creat Clear Calc Estimated GFR POC Glucose 92 Random Glucose Lactic Acid Calcium Total Bilirubin AST ALT Alkaline Phosphatase Total Protein Albumin COVID-19 (VINAY) COVID-19 Clin Com Assessment and Plan (1) Infestation, maggot: Status: Acute Plan 81-year-old female with a past medical history of diabetes, varicose veins, chronic bilateral lymphedema, anxiety, depression, bilateral leg wounds-follows with Wound Clinic, tobacco dependence, COPD, hypertension, peripheral neuropathy presented to the hospital today with a chief complaint of bilateral leg wounds.? Admitted for following Bilateral leg wounds: Patient on presentation noted to have maggots in the left leg wound-status post debridement in the ER.? Dr. Negro will do debridment in OR tomorrow Continue IV vancomycin Venous doppler no DVT ID consult penind History of diabetes: Continue Metformin Insulin sliding scale DVT prophylaxis:? Lovenox Code status:? Full code Need for inaptient: infected wound of the leg that need surgical intervention and IV antibiotics Quality Stroke Does the patient have a stroke diagnosis?: No VTE Prior VTE?: No VTE Risk Level:: Medical - moderate - high VTE Device Contraindication: Treatment Not Indicated VTE Drug Contraindication: N/A - Med Ordered
[2022-01-15] MEDS: 0.9 % Sodium Chloride Flush 3 ML SYRINGE IVFLUSH ×2 (08:33→18:04)
[2022-01-15] MEDS: metFORMIN HCl 500 MG TABLET PO ×2 (08:33→21:19)
[2022-01-15] MEDS: glyBURIDE 2.5 MG TABLET PO (08:33)
--- NOTE | 2022-01-15 08:40 | PC.NURSE ---
nad,pt took metformin and glyburide, would not take her cholesterol med interchange, i explained to her several times that we do not have the med and that this was the approved interchange, she wants to speak w the pharmacist re this, message given to pharmacy
--- NOTE | 2022-01-15 08:52 | PC.NURSE ---
Dr jones to bedside, pt ate breakfast. states that pt was to be NPO to go to OR today, will now go tomorrow and will be NPO after midnight
--- NOTE | 2022-01-15 11:25 | MHC.CM.PN ---
Met with patient in regards to discharge planning. Patient lives alone, ambulates independently and had no services prior to coming to the hospital. Patient still drives. No services anticipated to be needed because patient is not homebound. PCP verified. Patient has a HCP and will attempt to obtain a copy. Patient received 3 Moderna vaccines. IMM explained and signed. Patient is anticipating on transporting herself home. Her vehicle is in the parking lot. Dr Negro plans on being a procedure on patient's legs tomorrow, 01/16. Patient states I don't handle medical things well. She indicated she would have difficulty changing any dressings and feels she might need VNA. This might be difficult to arrange because patient is not homebound. Patient has a friend that may be able to help with dressing changes if needed. Continue to monitor for d/c needs.
--- NOTE | 2022-01-15 11:58 | PC.NURSE ---
Pt is A & O X 3, she is sitting up in bed and watching tv. She is awaiting pharmacy to explain substitute generic medication for a usual brand name she usually. Vitals are stable
--- NOTE | 2022-01-15 13:06 | PC.NURSE ---
Pt assisted to the bedside commode, she complains of dizziness when standing. O2 STAT 96% ON 2 L. Back in bed watching tv.
[2022-01-15 13:15] LABS: Glucose, Whole Blood 101 mg/dL (60-115)
--- NOTE | 2022-01-15 13:39 | P.CONGS_ITS ---
History of Present Illness Consult details Consult date: 01/15/22 Reason for consult: wound care Narrative: very pleasant 81-year-old female presents for nonhealing ulcers to bilateral lower extremities. She had originally seen me about a week back. She had sign ificantly dry excoriated skin. At that time we had done some bedside cleaning. [facility] She was found to have significant wounds and at the time of exam she was noted to have maggots within her wounds. She was subsequently sent to the emergency room for workup and evaluation. Review of Systems Review of Systems: Yes all other systems are reviewed and are negative Constitutional: Constitutional: Reports no additional constitutional complaints ENT: Reports Normal hearing present Cardiovascular: Cardiovascular: Denies chest pain, Denies chest pain at rest, Denies chest pain with activity and Denies pedal edema Respiratory: Respiratory: Denies cough Gastrointestinal: Gastrointestinal: Denies abdominal pain Musculoskeletal: Musculoskeletal: Denies abnormal gait, Denies muscle cramps and Denies radiating pain into limb Integumentary/Breasts: Skin/Breast: Denies skin ulcer and Denies wounds Neurologic: Reports Normal hearing present and Denies abnormal gait Psychiatric: Psychiatric: Reports no additional psychiatric complaints PMFSH Past Medical History Medical History Anxiety Benign essential hypertension COPD (chronic obstructive pulmonary disease) Diabetes mellitus Diffuse goiter GERD without esophagitis Intermittent palpitations Peripheral polyneuropathy Pure hypercholesterolemia Smoker Family History Family History Father No problems noted. Mother No problems noted. Other Substance abuse Surgical History Surgical History History of appendectomy History of laparoscopic cholecystectomy History of tonsillectomy History of total abdominal hysterectomy S/P BSO (bilateral salpingo-oophorectomy) Social History Social History Housing: House Alcohol intake: former Patient Tobacco Use Status: Current everyday Tobacco user Cigarettes Per Day: 10 e-Cigarette/Vaping Use: Never Used Second Hand Smoke Exposure: Yes Advance Directives: No Advance Directives Information Provided: No service: No Current occupational status: retired Cognitive needs: No Hearing needs: No Vision needs: Yes (reading glasses) Meds Allergies Allergy/AdvReac Type Severity Reaction Status Date / Time penicillin V Allergy Unknown anaphylaxis Verified 01/06/22 13:13 Penicillins [PENICILLINS] Allergy Unknown HEART STOPS Verified 01/06/22 13:13 Active Medications: Current Medications Acetaminophen (Acetaminophen 325 Mg Tablet) 650 mg PO Q6H PRN PRN Reason: Pain, Mild (Pain Scale 1-3) Albuterol Sulfate (Albuterol Sulfate 90 Mcg 8 Gm Inhaler) 2 puff INHALE Q6H PRN PRN Reason: Wheezing Atorvastatin Calcium (Atorvastatin Calcium 40 Mg Tablet) 40 mg PO DAILY [facility] Last Admin: 01/15/22 13:34 Dose: Not Given Dextrose (Dextrose 50 % 25 Gm/50 Ml Syringe) 25 gm IVPUSH Q15M PRN; Protocol PRN Reason: per Hypoglycemia Standing Ord. Ezetimibe (Ezetimibe 10 Mg Tablet) 10 mg PO DAILY [facility] Last Admin: 01/15/22 13:34 Dose: Not Given Enoxaparin Sodium (Enoxaparin Sodium 40 Mg/0.4 Ml Syringe) 40 mg SUBCUT Q24H [facility] Last Admin: 01/14/22 21:08 Dose: 40 mg Glucose (Glucose Gel 15 Gm Gel..Gram.) 15 gm PO Q15M PRN; Protocol PRN Reason: per Hypoglycemia Standing Ord. Glyburide (Glyburide 2.5 Mg Tablet) 2.5 mg PO DAILY [facility] Last Admin: 01/15/22 08:33 Dose: 2.5 mg Vancomycin HCl 1,000 mg/ (Sodium Chloride) 270 mls @ 270 mls/hr IV Q24H [facility] Insulin Human Lispro (Insulin Lispro 100 Unit/Ml 3 Ml Vial) 0 unit SUBCUT QIDACHS [facility]; Protocol Last Admin: 01/15/22 13:34 Dose: Not Given Melatonin (Melatonin 3 Mg Tablet) 6 mg PO BEDTIME PRN PRN Reason: Insomnia Metformin HCl (Metformin Hcl 500 Mg Tablet) 500 mg PO BID [facility] Last Admin: 01/15/22 08:33 Dose: 500 mg Pharmacy Consult (Consult Rx Vancomycin Dosing) 1 each MISCELLANE DAILY PRN PRN Reason: Consult order Pharmacy Consult (Consult Rx Vancomycin Dosing) 1 each MISCELLANE DAILY PRN PRN Reason: Consult order Senna (Sennosides 8.6 Mg Tablet) 17.2 mg PO BEDTIME PRN PRN Reason: Constipation Sodium Chloride (0.9 % Sodium Chloride Flush 3 Ml Syringe) 3 ml IVFLUSH QSHIFT [facility] Last Admin: 01/15/22 08:33 Dose: 3 ml Home Medications Medication Instructions Recorded Confirmed Last Taken Type albuterol sulfate 90 mcg/actuation 2 puff inhalation Q6H PRN Wheezing 05/10/20 01/14/22 01/14/22 09:00 History aerosol inhaler (ProAir HFA) Physical Exam 2 Vital Signs: Vital Signs: Last Vital Signs Temp 98.0 F 01/14/22 19:20 Pulse 87 01/15/22 11:59 Resp 16 01/15/22 11:59 BP 144/74 H 01/15/22 11:59 Pulse Ox 97 01/15/22 11:59 O2 Del Method 01/15/22 11:59 O2 Flow Rate 2 01/15/22 11:59 BMI result Body Mass Index 17.2 Const: General: cooperative, healthy appearing and comfortable Orientatio n/consciousness: oriented to person, oriented to place and oriented to time HEENT: Head: Yes normal to inspection Neck: Neck: Yes normal visual inspection Carotids: no bruits Chest: Chest palpation & inspection: normal inspection of the chest Resp: Effort & Inspection: normal respiratory effort and able to speak in complete sentences Auscultation: clear to auscultation bilaterally, no crackles, no rales, no rhonchi and no wheezes Cardio: Rate: regular rate Rhythm: regular rhythm Heart sounds: S1 normal heart sound present and S2 normal heart sound present Bruits: no carotid bruits Peripheral pulses: Peripheral pulses 2+ throughout GI: Inspection: Yes normal to inspection Skin: Other: Bilateral dry excoriated skin with pretibial ulcerations, Plus two edema Wounds: no wounds Hair: normal Neuro: General: oriented to person, oriented to place and oriented to time Cranial nerves: Yes CN's II-XII intact bilaterally and Yes Normal hearing present Cognition (Neuro): normal cognition Motor exam (neuro): 5/5 motor strength present throughout Extrem: Other: venous exam: No significant superficial varicosities or spider telangiectasias, minimal edema General: No clubbing, No cyanosis and No edema Psych: Appearance: grossly normal Mental Status: mental status grossly normal Speech and movement: Normal speech and movement present Results Labs Result diagrams: 01/15/22 04:53 01/15/22 04:53 Labs: Abnormal lab results 01/14/22 01/15/22 Range/Units 18:45 04:53 MPV 9.2 L 9.2 L (9.4-12.3) fL Immature Gran % (Auto) 0.6 H (0.0-0.4) % Neut % (Auto) 74.1 H (45-73) % Lymph % (Auto) 17.9 L (20-40) % Abs Immat Gran (auto) 0.05 H (0.00-0.03) X10*3/uL Short CBC 01/14/22 01/15/22 Range/Units 18:45 04:53 WBC 7.9 7.3 (4.8-10.8) X10*3/uL Hgb 14.8 14.4 (12.0-16.0) g/dl Hct 44.8 43.8 (37.0-47.0) % Plt Count 177 166 (160-400) X10*3/uL BMP 01/14/22 01/15/22 19:18 04:53 Sodium 143 141 Potassium 5.0 4.2 Chloride 103 104 Carbon Dioxide 27 27 BUN 10 10 Creatinine 0.76 0.71 Calcium 9.5 9.0 Liver Function 01/14/22 Range/Units 19:18 Total Bilirubin 0.2 (0.0-1.0) mg/dL AST 21 (5-31) U/L ALT 16 (0-31) U/L Alkaline Phosphatase 73 (39-117) U/L Albumin 3.9 (3.5-5.0) g/dL All other labs normal. Assessment and Plan (1) Bilateral leg ulcer: Status: Acute Plan in short patient has bilateral lower extremity ulcerations. She will require debridement of both ulcers. Unfortunately she was not and p.o. last night. She has eaten breakfast this morning. Will schedule her for tomorrow. Thank you for allowing us participate in her care. If there are any questions or concerns please do not hesitate to contact us. Procedures Date of Service Date of Service: 01/15/22
--- NOTE | 2022-01-15 13:59 | P.CDIC_ITS ---
CDI Concurrent Query Documentation Clarification: PHYSICIAN'S DOCUMENTATION REQUEST Date of Query: 01/15/22 1400 Patient Name: Mitra Hardy Admit Date: 01/14/22 Dear Doctor, A review of the medical record indicates additional documentation may be needed. Please review below and update the documentation accordingly. Clinical Indicators: Is there a diagnosis that correlates with the findings below: Risk Factors/Clinical Indicators/Treatments BMI: 17.2 Height: 5ft 3in Weight: 44kg ASPEN Criteria* Acute Illness Chronic Illness Clinical Characteristic Non-Severe (2 or more criteria present) Severe (2 or more criteria present) Non-Severe (2 or more criteria present) Severe (2 or more criteria present) Energy Intake <75% for >7 days <=50% for >=5 days <75% for >=1 month <=75% for >=1 month Weight Loss 1 week 1 ? 2% >2% N/A N/A 1 month 5% >5% 5% >5% 3 months 7.5 % >7.5% 7.5% >7.5% 6 months N/A N/A 10% >10% 1 year N/A N/A 20% >20% Body Fat Mild Moderate Mild Severe Muscle Mass Mild Moderate Mild Severe Fluid Accumulation Mild Moderate to Severe Mild Severe Reduced [employer] Strength N/A Measurably Reduced N/A Measurably Reduced *[facility] Hospitalist, 2017 If possible, please provide in your progress notes, additional specificity regarding the severity of the malnutrition using the above information: Malnutrition: * Mild * Moderate * Severe * Other (please specify) * Unable to determine For a BMI <= 19: * Underweight * Weight loss * Cachexia * Anorexia Or: * BMI is not significant * Other (please specify) * Unable to determine Use of terms such as suspected, likely, concern for, or probable (associated with a specific diagnosis that is being evaluated, monitored, or treated as if it exists) are acceptable and can be coded in the inpatient setting, when documented at the time of discharge. Thank you, Sandy Pichardo, , RN, CCRN Extension: [phone] Please use your independent medical judgment in providing your response. THIS QUERY IS PART OF THE PERMANENT MEDICAL RECORD Provider Response: Moderate Protein-Calorie Malnutrition
--- NOTE | 2022-01-15 14:14 | HE.PHANOTE ---
ED nurse called for a pharmacist to come down to parliamentary counsel patient on an interchange. Went down to speak to patient and she stated she had no issues/concerns. I asked if it was about her vytorin and she explained that the doctor had already spoken to her and she no longer has concerns. Not sure if patient truly understood or not. Told her she can have RN call up to pharmacy if she has any other questions. thanks ~rei
--- NOTE | 2022-01-15 15:58 | MHC.CARE ---
CARE Team spoke with [facility] Kim, who reported Pts 6 days ago and Pt has not been caring for herself. Protective services is involved Mariama Abdul [phone]. Pts house will likely be condemned per [facility]. Pt has one friend know Abbey Blackburn [phone]. Pt has no children or local family. Pts home address is [address] [place] [address]
[2022-01-15 16:46] LABS: Glucose, Whole Blood 81 mg/dL (60-115)
--- NOTE | 2022-01-15 17:57 | PC.NURSE ---
report given to overflow rn
[2022-01-15 19:49] LABS: Glucose, Whole Blood 143 mg/dL (60-115)
[2022-01-15] MEDS: vancomycin HCL 1,000 MG in 0.9 % Sodium Chloride 250 ML 270 MG IV (21:19)
[2022-01-16] VITALS (11 sets, daily range): BP systolic 102–162; BP diastolic 52–76; PULSE 64–89; RESP 16–24; TEMP 36–37.3; O2SAT 92–100; BMI 15.9
[2022-01-16 07:12] LABS: Glucose, Whole Blood 79 mg/dL (60-115)
[2022-01-16] MEDS: 0.9 % Sodium Chloride Flush 3 ML SYRINGE IVFLUSH ×3 (07:58→23:52)
[2022-01-16 08:35] LABS: Creatinine Clr Calc Pharmacy 44.1; Estimated Glomerular Filt Rate > 60
--- NOTE | 2022-01-16 09:10 | P.PNIM_ITS ---
Subjective Subjective Date of Service: 01/16/22 Interval History: Seen in f/u for infected leg wound interim history: no pain, no new issue Review of Systems Gen: no fever Resp: no sob, no cough CV: no chest, no RUTLEDGE, no leg edema GI: No n/v, no abd pain Neuro: No confusion Skin: wounds on legs Physical Exam Vital Signs: Vital Signs: Last Vital Signs Temp 97.8 F 01/16/22 06:58 Pulse 86 01/16/22 06:58 Resp 16 01/16/22 06:58 BP 162/76 H 01/16/22 06:58 Pulse Ox 92 01/16/22 06:58 O2 Del Method 01/16/22 06:58 O2 Flow Rate 2 01/16/22 06:58 BMI result Body Mass Index 16.9 Const: Other: General: AO X 3, no acute distress, Resp: CTA bilateral CVS: S1,S2,RRR GI: +BS, NT, no distention Skin: see prior pictures Neuro: motor grossly intact Psych: appropriate affect Objective Data Active Medications Acetaminophen (Acetaminophen 325 Mg Tablet) 650 mg PO Q6H PRN PRN Reason: Pain, Mild (Pain Scale 1-3) Albuterol Sulfate (Albuterol Sulfate 90 Mcg 8 Gm Inhaler) 2 puff INHALE Q6H PRN PRN Reason: Wheezing Atorvastatin Calcium (Atorvastatin Calcium 40 Mg Tablet) 40 mg PO DAILY [facility] Last Admin: 01/16/22 08:00 Dose: Not Given Documented By: OLAYINKA Non-Admin Reason: Patient Refused Dextrose (Dextrose 50 % 25 Gm/50 Ml Syringe) 25 gm IVPUSH Q15M PRN; Protocol PRN Reason: per Hypoglycemia Standing Ord. Ezetimibe (Ezetimibe 10 Mg Tablet) 10 mg PO DAILY [facility] Last Admin: 01/16/22 08:00 Dose: Not Given Documented By: OLAYINKA Non-Admin Reason: Patient Refused Enoxaparin Sodium (Enoxaparin Sodium 40 Mg/0.4 Ml Syringe) 40 mg SUBCUT Q24H [facility] Last Admin: 01/15/22 21:20 Dose: Not Given Documented By: GIUSEPPE Non-Admin Reason: or am Glucose (Glucose Gel 15 Gm Gel..Gram.) 15 gm PO Q15M PRN; Protocol PRN Reason: per Hypoglycemia Standing Ord. Glyburide (Glyburide 2.5 Mg Tablet) 2.5 mg PO DAILY [facility] Last Admin: 01/16/22 08:00 Dose: Not Given Documented By: OLAYINKA Non-Admin Reason: NPO Vancomycin HCl 1,000 mg/ (Sodium Chloride) 270 mls @ 270 mls/hr IV Q24H [facility] Last Infusion: 01/15/22 22:39 Dose: 0 mls/hr Documented By: ALBINAILShannon Insulin Human Lispro (Insulin Lispro 100 Unit/Ml 3 Ml Vial) 0 unit SUBCUT QIDACHS [facility]; Protocol Last Admin: 01/16/22 08:00 Dose: Not Given Documented By: OLAYINKA Non-Admin Reason: No Insulin Coverage Melatonin (Melatonin 3 Mg Tablet) 6 mg PO BEDTIME PRN PRN Reason: Insomnia Metformin HCl (Metformin Hcl 500 Mg Tablet) 500 mg PO BID [facility] Last Admin: 01/16/22 08:00 Dose: Not Given Documented By: OLAYINKA Non-Admin Reason: NPO Pharmacy Consult (Consult Rx Vancomycin Dosing) 1 each MISCELLANE DAILY PRN PRN Reason: Consult order Pharmacy Consult (Consult Rx Vancomycin Dosing) 1 each MISCELLANE DAILY PRN PRN Reason: Consult order Senna (Sennosides 8.6 Mg Tablet) 17.2 mg PO BEDTIME PRN PRN Reason: Constipation Sodium Chloride (0.9 % Sodium Chloride Flush 3 Ml Syringe) 3 ml IVFLUSH QSHIFT [facility] Last Admin: 01/16/22 07:58 Dose: 3 ml Documented By: OLAYINKA Labs CBC & Chem 7: 01/15/22 04:53 01/16/22 08:02 Labs: Laboratory Results - last 24 hr 01/15/22 01/15/22 01/15/22 13:02 16:36 19:44 Estim Creat Clear Calc Estimated GFR POC Glucose 101 81 143 H 01/16/22 01/16/22 07:01 08:02 Estim Creat Clear Calc 44.1 Estimated GFR > 60 POC Glucose 79 Microbiology Microbiology Results: Microbiology 01/14/22 18:58 Blood Culture - Preliminary Blood - Venous No growth after 24 hours. 01/14/22 18:45 Blood Culture - Preliminary Blood - Venous No growth after 24 hours. Assessment and Plan (1) troy Jimenez: Status: Acute Plan 81-year-old female with a past medical history of diabetes, varicose veins, chronic bilateral lymphedema, anxiety, depression, bilateral leg wounds-follows with [facility], tobacco dependence, COPD, hypertension, peripheral neuropathy presented to the hospital today with a chief complaint of bilateral leg wounds.? Admitted for following Bilateral leg wounds: Patient on presentation noted to have maggots in the left leg wound-status post debridement in the ER.? Dr. Negro will do debridment in OR today Continue IV vancomycin d3 Venous doppler no DVT ID consult pening History of diabetes: Continue Metformin Insulin sliding scale DVT prophylaxis:? Lovenox Code status:? Full code Need for inaptient: infected wound of the leg that need surgical intervention and IV antibiotics Quality Stroke Does the patient have a stroke diagnosis?: No VTE Prior VTE?: No VTE Risk Level:: Medical - moderate - high VTE Device Contraindication: Treatment Not Indicated VTE Drug Contraindication: N/A - Med Ordered
[2022-01-16 11:16] LABS: Glucose, Whole Blood 60 mg/dL (60-115)
[2022-01-16] MEDS: Dextrose 50 % 25 GM/50 ML SYRINGE IVPUSH (11:20)
[2022-01-16 11:44] LABS: Glucose, Whole Blood 205 mg/dL (60-115)
[2022-01-16 12:05] LABS: Glucose, Whole Blood 192 mg/dL (60-115)
--- NOTE | 2022-01-16 12:12 | PC.NURSE ---
Patient with POC of 60 at before lunch. NPO as she is pre-op. D%)
[2022-01-16 12:26] LABS: Glucose, Whole Blood 162 mg/dL (60-115)
--- NOTE | 2022-01-16 14:11 | MHC.CM.PN ---
EMR REVIEWED, PLAN FOR DEBRIDEMENT IN OR TODAY, NO PLAN FOR D/C AT THIS TIME, CM DID NOT WANT TO DISCUSS DISPO WHEN MTG W/CM AND WAS FOCUSED ON PROCEDURE W/DR LORENZO CM TO REVISIT.
--- NOTE | 2022-01-16 14:28 | P.CONAN_ITS ---
[facility] Active Problems Active Problems: All Active Problems (Updated 01/15/22 @ 13:44 by Hao Negro MD) Bilateral leg ulcer (Acute) Infestation, maggot (Acute) Varicose veins of right lower extremity with inflammation (Acute) Cellulitis of right lower leg (Acute) Lymphedema (Acute) Mild depression (Acute) Bilateral edema of lower extremity (Acute) Bunion (Acute) Callus of foot (Acute) Pedal edema (Acute) Smoker (Acute) Anxiety (Acute) Peripheral polyneuropathy (Acute) Intermittent palpitations (Acute) GERD without esophagitis (Acute) Diffuse goiter (Acute) COPD (chronic obstructive pulmonary disease) (Acute) Pure hypercholesterolemia (Acute) Benign essential hypertension (Acute) Diabetes mellitus (Acute) Past Medical History Medical History Anxiety Benign essential hypertension COPD (chronic obstructive pulmonary disease) Diabetes mellitus Diffuse goiter GERD without esophagitis Intermittent palpitations Peripheral polyneuropathy Pure hypercholesterolemia Smoker Family History Family History Father No problems noted. Mother No problems noted. Other Substance abuse Family history of problems with anesthesia: No Surgical History Surgical History History of appendectomy History of laparoscopic cholecystectomy History of tonsillectomy History of total abdominal hysterectomy S/P BSO (bilateral salpingo-oophorectomy) History of Problems with Anesthesia: No Social History Social History Household Members: None Housing: House Unable to assess alcohol history related to: Unknown Alcohol intake: former Patient Tobacco Use Status: Current everyday Tobacco user Tobacco use type: Cigarette Cigarettes Per Day: 10 e-Cigarette/Vaping Use: Never Used Second Hand Smoke Exposure: No service: No Current occupational status: retired Cognitive needs: No Hearing needs: No Vision needs: Yes (reading glasses) Meds Allergies Allergy/AdvReac Type Severity Reaction Status Date / Time penicillin V Allergy Unknown anaphylaxis Verified 01/06/22 13:13 Penicillins [PENICILLINS] Allergy Unknown HEART STOPS Verified 01/06/22 13:13 Active Medications: Current Medications Acetaminophen (Acetaminophen 325 Mg Tablet) 650 mg PO Q6H PRN PRN Reason: Pain, Mild (Pain Scale 1-3) Albuterol Sulfate (Albuterol Sulfate 90 Mcg 8 Gm Inhaler) 2 puff INHALE Q6H PRN PRN Reason: Wheezing Atorvastatin Calcium (Atorvastatin Calcium 40 Mg Tablet) 40 mg PO DAILY [facility] Last Admin: 01/16/22 08:00 Dose: Not Given Dextrose (Dextrose 50 % 25 Gm/50 Ml Syringe) 25 gm IVPUSH Q15M PRN; Protocol PRN Reason: per Hypoglycemia Standing Ord. Last Admin: 01/16/22 11:20 Dose: 25 gm Ezetimibe (Ezetimibe 10 Mg Tablet) 10 mg PO DAILY [facility] Last Admin: 01/16/22 08:00 Dose: Not Given Enoxaparin Sodium (Enoxaparin Sodium 40 Mg/0.4 Ml Syringe) 40 mg SUBCUT Q24H [facility] Last Admin: 01/15/22 21:20 Dose: Not Given Glucose (Glucose Gel 15 Gm Gel..Gram.) 15 gm PO Q15M PRN; Protocol PRN Reason: per Hypoglycemia Standing Ord. Glyburide (Glyburide 2.5 Mg Tablet) 2.5 mg PO DAILY [facility] Last Admin: 01/16/22 08:00 Dose: Not Given Vancomycin HCl 1,000 mg/ (Sodium Chloride) 270 mls @ 270 mls/hr IV Q24H [facility] Last Infusion: 01/15/22 22:39 Dose: Infused Insulin Human Lispro (Insulin Lispro 100 Unit/Ml 3 Ml Vial) 0 unit SUBCUT QIDACHS [facility]; Protocol Last Admin: 01/16/22 12:11 Dose: Not Given Melatonin (Melatonin 3 Mg Tablet) 6 mg PO BEDTIME PRN PRN Reason: Insomnia Metformin HCl (Metformin Hcl 500 Mg Tablet) 500 mg PO BID [facility] Last Admin: 01/16/22 08:00 Dose: Not Given Pharmacy Consult (Consult Rx Vancomycin Dosing) 1 each MISCELLANE DAILY PRN PRN Reason: Consult order Pharmacy Consult (Consult Rx Vancomycin Dosing) 1 each MISCELLANE DAILY PRN PRN Reason: Consult order Senna (Sennosides 8.6 Mg Tablet) 17.2 mg PO BEDTIME PRN PRN Reason: Constipation Sodium Chloride (0.9 % Sodium Chloride Flush 3 Ml Syringe) 3 ml IVFLUSH QSHIFT [facility] Last Admin: 01/16/22 07:58 Dose: 3 ml Home Medications Medication Instructions Recorded Confirmed Last Taken Type albuterol sulfate 90 mcg/actuation 2 puff inhalation Q6H PRN Wheezing 05/10/20 01/14/22 01/14/22 09:00 History aerosol inhaler (ProAir HFA) Exam Exam Date and Time: January 16, 20221427 Height,Weight and Vital Signs: Height 5 ft 3 in Weight 40.823 kg Last Vital Signs Temp 98.2 F 01/16/22 12:55 Pulse 76 01/16/22 12:55 Resp 18 01/16/22 12:55 BP 135/61 01/16/22 12:55 Pulse Ox 95 01/16/22 12:55 O2 Del Method 01/16/22 12:55 O2 Flow Rate 2 01/16/22 11:04 Pertinent Lab Results Pertinent Lab Results: Laboratory Tests 01/14/22 01/14/22 01/14/22 18:45 18:45 18:45 WBC 7.9 RBC 4.90 Hgb 14.8 Hct 44.8 MCV 91.4 MCH 30.2 MCHC 33.0 RDW 13.2 Plt Count 177 MPV 9.2 L Immature Gran % (Auto) 0.6 H Neut % (Auto) 74.1 H Lymph % (Auto) 17.9 L Nobles % (Auto) 6.5 Eos % (Auto) 0.6 Baso % (Auto) 0.3 Lymph # (Auto) 1.4 Nobles # (Auto) 0.5 Eos # (Auto) 0.1 Baso # (Auto) 0.0 Abs Immat Gran (auto) 0.05 H Absolute Neuts (auto) 5.8 Absolute Nucleated RBC 0.000 Nucleated RBC % (auto) 0.0 Sodium Potassium Chloride Carbon Dioxide Anion Gap BUN Creatinine Estim Creat Clear Calc Estimated GFR POC Glucose Random Glucose Lactic Acid 1.5 Calcium Total Bilirubin AST ALT Alkaline Phosphatase Total Protein Albumin COVID-19 (VINAY) Negative COVID-19 Clin Com See Note 01/14/22 01/15/22 01/15/22 19:18 04:53 04:53 WBC 7.3 RBC 4.75 Hgb 14.4 Hct 43.8 MCV 92.2 MCH 30.3 MCHC 32.9 RDW 13.2 Plt Count 166 MPV 9.2 L Immature Gran % (Auto) 0.1 Neut % (Auto) 69.6 Lymph % (Auto) 21.5 Nobles % (Auto) 7.9 Eos % (Auto) 0.6 Baso % (Auto) 0.3 Lymph # (Auto) 1.6 Nobles # (Auto) 0.6 Eos # (Auto) 0.0 Baso # (Auto) 0.0 Abs Immat Gran (auto) 0.01 Absolute Neuts (auto) 5.1 Absolute Nucleated RBC 0.000 Nucleated RBC % (auto) 0.0 Sodium 143 141 Potassium 5.0 4.2 Chloride 103 104 Carbon Dioxide 27 27 Anion Gap 18 14 BUN 10 10 Creatinine 0.76 0.71 Estim Creat Clear Calc 41.7 44.6 Estimated GFR > 60 > 60 POC Glucose Random Glucose 104 106 Lactic Acid Calcium 9.5 9.0 Total Bilirubin 0.2 AST 21 ALT 16 Alkaline Phosphatase 73 Total Protein 6.5 Albumin 3.9 COVID-19 ([facility]INAY) COVID-19 Clin Com 01/15/22 01/15/22 01/15/22 07:18 13:02 16:36 WBC RBC Hgb Hct MCV MCH MCHC RDW Plt Count MPV Immature Gran % (Auto) Neut % (Auto) Lymph % (Auto) Nobles % (Auto) Eos % (Auto) Baso % (Auto) Lymph # (Auto) Nobles # (Auto) Eos # (Auto) Baso # (Auto) Abs Immat Gran (auto) Absolute Neuts (auto) Absolute Nucleated RBC Nucleated RBC % (auto) Sodium Potassium Chloride Carbon Dioxide Anion Gap BUN Creatinine Estim Creat Clear Calc Estimated GFR POC Glucose 92 101 81 Random Glucose Lactic Acid Calcium Total Bilirubin AST ALT Alkaline Phosphatase Total Protein Albumin COVID-19 (VINAY) COVID-19 Clin Com 01/15/22 01/16/22 01/16/22 19:44 07:01 08:02 WBC RBC Hgb Hct MCV MCH MCHC RDW Plt Count MPV Immature Gran % (Auto) Neut % (Auto) Lymph % (Auto) Nobles % (Auto) Eos % (Auto) Baso % (Auto) Lymph # (Auto) Nobles # (Auto) Eos # (Auto) Baso # (Auto) Abs Immat Gran (auto) Absolute Neuts (auto) Absolute Nucleated RBC Nucleated RBC % (auto) Sodium Potassium Chloride Carbon Dioxide Anion Gap BUN Creatinine 0.71 Estim Creat Clear Calc 44.1 Estimated GFR > 60 POC Glucose 143 H 79 Random Glucose Lactic Acid Calcium Total Bilirubin AST ALT Alkaline Phosphatase Total Protein Albumin COVID-19 ([facility]INAY) COVID-19 Clin Com 01/16/22 01/16/22 01/16/22 11:06 11:40 12:01 WBC RBC Hgb Hct MCV MCH MCHC RDW Plt Count MPV Immature Gran % (Auto) Neut % (Auto) Lymph % (Auto) Nobles % (Auto) Eos % (Auto) Baso % (Auto) Lymph # (Auto) Nobles # (Auto) Eos # (Auto) Baso # (Auto) Abs Immat Gran (auto) Absolute Neuts (auto) Absolute Nucleated RBC Nucleated RBC % (auto) Sodium Potassium Chloride Carbon Dioxide Anion Gap BUN Creatinine Estim Creat Clear Calc Estimated GFR POC Glucose 60 205 H 192 H Random Glucose Lactic Acid Calcium Total Bilirubin AST ALT Alkaline Phosphatase Total Protein Albumin COVID-19 (VINAY) COVID-19 Clin Com 01/16/22 12:22 WBC RBC Hgb Hct MCV MCH MCHC RDW Plt Count MPV Immature Gran % (Auto) Neut % (Auto) Lymph % (Auto) Nobles % (Auto) Eos % (Auto) Baso % (Auto) Lymph # (Auto) Nobles # (Auto) Eos # (Auto) Baso # (Auto) Abs Immat Gran (auto) Absolute Neuts (auto) Absolute Nucleated RBC Nucleated RBC % (auto) Sodium Potassium Chloride Carbon Dioxide Anion Gap BUN Creatinine Estim Creat Clear Calc Estimated GFR POC Glucose 162 H Random Glucose Lactic Acid Calcium Total Bilirubin AST ALT Alkaline Phosphatase Total Protein Albumin COVID-19 (VINAY) COVID-19 Clin Com Airway Mallampati Class: II TM Dist: >3cm Neck ROM: Full Denture: Upper and Lower Assessment and Plan Assessment Anesthesia Assessment: Anesthesia Plan Discussed and Chart Reviewed Final Anesthetic Review Family History of Problems with Anesthesia: No History of Problems with Anesthesia: No NPO: Yes ASA Class: III Final Preanesthetic Review: No Changes in Pt Med Stat, Meds/Allgs Chart Reviewed, Consent Obtained/Reviewed and Anes Risks/Benef Reviewed Patient Risk: Low Procedure Risk: Low Anesthetic Plan Anesthetic Plan: MAC: Disposition: Standard PACU and Inp. Admit - Standard Bed
--- NOTE | 2022-01-16 15:12 | MHC.CLN ---
NUTRITION CONSULT FOR UNINTENTIONAL WEIGHT LOSS. SIGNIFICANT WEIGHT LOSS X 5 MONTHS, -11%. REPORTS WEIGHT LOSS TREND X 4 YEARS. QUALIFIES MODERATELY MALNOURISHED. CURRENTLY NPO. RD RECOMMENDS LIBERALIZED DIET TO PROMOTE INTAKE. SUPPLEMENT ENSURE TID PER PATIENT PREFERENCE. PROVIDES ADDITIONAL 1050 KCALS, 60 G PROTEIN. FOLLOW FOR DIET ADVANCEMENT, INTAKE AND WEIGHT.
--- NOTE | 2022-01-16 16:33 | W.PM.IDCN ---
History of Present Illness Data of Consult Service Date: 01/16/22 [facility] Primary Care Provider: Adin Almanza MD HPI Reason for consult: leg wounds,contaminated ,,maggots She presents with bilateral leg wounds with some flaking venous stasis eczematous skin and maggots. She has no cellulitis. She was seen at [facility] today and felt to be in need of debridement. Review of Systems Review of Systems: Yes all other systems are reviewed and are negative [facility] Past Medical History Medical History Anxiety Benign essential hypertension COPD (chronic obstructive pulmonary disease) Diabetes mellitus Diffuse goiter GERD without esophagitis Intermittent palpitations Peripheral polyneuropathy Pure hypercholesterolemia Smoker Family History Family History Father No problems noted. Mother No problems noted. Other Substance abuse Family history: reviewed and not pertinent Surgical History Surgical History History of appendectomy History of laparoscopic cholecystectomy History of tonsillectomy History of total abdominal hysterectomy S/P BSO (bilateral salpingo-oophorectomy) Social History Social History Household Members: None Housing: House Unable to assess alcohol history related to: Unknown Alcohol intake: former Patient Tobacco Use Status: Current everyday Tobacco user Tobacco use type: Cigarette Cigarettes Per Day: 10 e-Cigarette/Vaping Use: Never Used Second Hand Smoke Exposure: No service: No Current occupational status: retired Cognitive needs: No Hearing needs: No Vision needs: Yes (reading glasses) Meds Allergies Allergy/AdvReac Type Severity Reaction Status Date / Time penicillin V Allergy Unknown anaphylaxis Verified 01/06/22 13:13 Penicillins [PENICILLINS] Allergy Unknown HEART STOPS Verified 01/06/22 13:13 Active Medications: Current Medications Acetaminophen (Acetaminophen 325 Mg Tablet) 650 mg PO Q6H PRN PRN Reason: Pain, Mild (Pain Scale 1-3) Albuterol Sulfate (Albuterol Sulfate 90 Mcg 8 Gm Inhaler) 2 puff INHALE Q6H PRN PRN Reason: Wheezing Atorvastatin Calcium (Atorvastatin Calcium 40 Mg Tablet) 40 mg PO DAILY [facility] Last Admin: 01/16/22 08:00 Dose: Not Given Dextrose (Dextrose 50 % 25 Gm/50 Ml Syringe) 25 gm IVPUSH Q15M PRN; Protocol PRN Reason: per Hypoglycemia Standing Ord. Last Admin: 01/16/22 11:20 Dose: 25 gm Ezetimibe (Ezetimibe 10 Mg Tablet) 10 mg PO DAILY [facility] Last Admin: 01/16/22 08:00 Dose: Not Given Enoxaparin Sodium (Enoxaparin Sodium 40 Mg/0.4 Ml Syringe) 40 mg SUBCUT Q24H [facility] Last Admin: 01/15/22 21:20 Dose: Not Given Fentanyl (Fentanyl Citrate/Pf 100 Mcg/2 Ml Vial) 25 mcg IVPUSH Q5M PRN; Protocol PRN Reason: Pain, Moderate (Pain Scale 4-6 Glucose (Glucose Gel 15 Gm Gel..Gram.) 15 gm PO Q15M PRN; Protocol PRN Reason: per Hypoglycemia Standing Ord. Glyburide (Glyburide 2.5 Mg Tablet) 2.5 mg PO DAILY [facility] Last Admin: 01/16/22 08:00 Dose: Not Given Vancomycin HCl 1,000 mg/ (Sodium Chloride) 270 mls @ 270 mls/hr IV Q24H [facility] Last Infusion: 01/15/22 22:39 Dose: Infused Insulin Human Lispro (Insulin Lispro 100 Unit/Ml 3 Ml Vial) 0 unit SUBCUT QIDACHS [facility]; Protocol Last Admin: 01/16/22 12:11 Dose: Not Given Melatonin (Melatonin 3 Mg Tablet) 6 mg PO BEDTIME PRN PRN Reason: Insomnia Metformin HCl (Metformin Hcl 500 Mg Tablet) 500 mg PO BID [facility] Last Admin: 01/16/22 08:00 Dose: Not Given Ondansetron HCl (Ondansetron Hcl 4 Mg/2 Ml Vial) 4 mg IVPUSH ONCE PRN PRN Reason: Nausea and Vomiting Pharmacy Consult (Consult Rx Vancomycin Dosing) 1 each MISCELLANE DAILY PRN PRN Reason: Consult order Pharmacy Consult (Consult Rx Vancomycin Dosing) 1 each MISCELLANE DAILY PRN PRN Reason: Consult order Senna (Sennosides 8.6 Mg Tablet) 17.2 mg PO BEDTIME PRN PRN Reason: Constipation Sodium Chloride (0.9 % Sodium Chloride Flush 3 Ml Syringe) 3 ml IVFLUSH QSHIFT [facility] Last Admin: 01/16/22 16:20 Dose: 3 ml Home Medications Medication Instructions Recorded Confirmed Last Taken Type albuterol sulfate 90 mcg/actuation 2 puff inhalation Q6H PRN Wheezing 05/10/20 01/14/22 01/14/22 09:00 History aerosol inhaler (ProAir HFA) Physical Exam Vital Signs: Vital Signs: Last Vital Signs Temp 98.4 F 01/16/22 15:47 Pulse 66 01/16/22 15:47 Resp 20 01/16/22 15:47 BP 114/52 L 01/16/22 15:47 Pulse Ox 97 01/16/22 15:47 O2 Del Method 01/16/22 15:47 O2 Flow Rate 2 01/16/22 15:47 BMI result Body Mass Index 15.9 Const: General: cooperative HEENT: Head: Yes normal to inspection Face and sinus: Yes normal facial exam Mouth: Normal oral and palatal mucosa present Teeth and gingiva: dentition normal Eyes: General: appearance normal, both eyes and all related structures Pupils: Equal, round and reactive pupils present Resp: Effort & Inspection: normal respiratory effort Cardio: Rate: regular rate Rhythm: regular rhythm GI: Palpation (GI): Soft to palpation and nontender : General: Yes no CVA tenderness Back/Spine/Pelvis: Back: no CVA tenderness Skin: General skin exam: no rashes or lesions noted Neuro: General: moves all extremities Cranial nerves: Yes Equal, round and reactive pupils present Extrem: Other: scaly lower extremities with venous stasis changes General: Yes normal to inspection Psych: Appearance: grossly normal Results Labs CBC & Chem 7: 01/15/22 04:53 01/16/22 08:02 Labs: BMP 01/16/22 08:02 Creatinine 0.71 Microbiology Microbiology Results: Microbiology 01/14/22 18:58 Blood - Venous Blood Culture - Preliminary No growth after 24 hours. 01/14/22 18:45 Blood - Venous Blood Culture - Preliminary No growth after 24 hours. Assessment and Plan (1) Bilateral leg ulcer: Status: Acute There really is no issues with spreading cellulitis and no fever or leukocytosis so likely very short term IV antibiotics All-PCN (2) Infestation, maggot: Status: Acute (3) Varicose veins of right lower extremity with inflammation: Status: Acute Plan Would continue Vancomycin Debridement and then po Doxcycycline after debridement as long as no [id number] suggestion of osteomyelitis.
[2022-01-16 16:51] LABS: Glucose, Whole Blood 74 mg/dL (60-115)
[2022-01-16] MEDS: metFORMIN HCl 500 MG TABLET PO (17:32)
--- NOTE | 2022-01-16 19:04 | MHC.SHP ---
Pre-Procedural Eval Section A Date of Service: 01/16/22 The patient is an INPATIENT: Yes Changes since office visit: Yes Patient answered all questions The History & Physical has been completed within 30 days and I have reviewed it.: Yes Section B Chief Complaint: cellulitis Allergies: Allergies Allergy/AdvReac Type Severity Reaction Status Date / Time penicillin V Allergy Unknown anaphylaxis Verified 01/06/22 13:13 Penicillins [PENICILLINS] Allergy Unknown HEART STOPS Verified 01/06/22 13:13 Plan I have reviewed the history and physical and performed a pertinent physical examination on my patient. No changes have occurred unless specified.
--- NOTE | 2022-01-16 19:05 | W.PM.OPN ---
Operative Note Operative Note Date of Service: 01/16/22 Narrative: Operative note by [facility] Preoperative diagnosis:Nonhealing bilateral lower extremity ulcers Postoperative diagnosis: same Procedure: bilateral lower extremity debridement into muscle Surgeon:Hao Negro M.D. Construction Technician: ruben Anesthesia: local with sedation Specimens: none Drains: none Estimated blood loss: minimal Indications: 81-year-old female presented to the emergency room we in the significantly swollen lower extremities and nonhealing bilateral lower extremity ulcers. She was admitted with maggot infestation. For due to her overall discomfort she now presents for operative debridement. The patient has signed the informed consent after reviewing risks, complications, benefits, and alternatives previously discussed with the patient. The patient was given the opportunity to ask any additional questions or voice any concerns. All questions were answered to the patient's satisfaction. Procedure in detail: Patient was brought to the operating room prior to which a time-out was called for patient identification site verification. Bilateral lower extremities were prepped and draped in standard surgical fashion. It was 1st cleaned with a chlorhexidine sponge cleansing. Subsequently prepped with a Betadine prep. Using 10 blade and 15 blade we debrided the wounds into muscle. The right side the wound measured 7 x 8 x 0.1 cm post debridement it measured 7.5 x 8.5 x 0.3 cm. There is multiple skin bridges throughout. Overall raw surface. In a similar fashion the left side was debrided. The overall opening was 5 x 4 x 0.1 cm. Post debridement it was 5.2 x 4.2 x 0.2 cm. The wound was then thoroughly irrigated out adequate hemostasis was achieved Xeroform and a sterile dressing was applied. At the end the case sponge instrument counts were correct. Patient tolerated the procedure well. Returned to recovery with stable vitals. This note is constructed using voice recognition software. While every effort has been made to ensure accuracy, deputy probation officer errors may have been included. Thank you for allowing me to participate in the care of your patient. Yours sincerely, Hao Negro MD, FACS, R.P.V.I.
[2022-01-16 19:50] LABS: Vancomycin Random 8.5 mcg/mL (15-20)
--- NOTE | 2022-01-16 19:59 | HE.PHANOTE ---
RE VANCO TROUGH WAS 8.5 AFTER 2 DOSES. I WILL INCREASE FREQUENCY IN HOPES THAT IT BUMPS LEVEL. PER PROVIDER NOTE, PATIENT DOES NOT HAVE ACTIVE INFECTION AND IV ABX COULD BE DISCONTINUED AFTER DEBRIDEMENT WHICH WAS DONE TODAY nEXT TROUGH SCHEDULED FOR TOMORROW 01/17 @1900
[2022-01-16 20:17] LABS: Glucose, Whole Blood 222 mg/dL (60-115)
[2022-01-16] MEDS: vancomycin HCL 500 MG in 0.9 % Sodium Chloride 100 ML 110 MG IV (21:04)
[2022-01-16] MEDS: Insulin Lispro 100 UNIT/ML 3 ML VIAL SUBCUT (21:07)
[2022-01-16] MEDS: Enoxaparin Sodium 40 MG/0.4 ML SYRINGE SUBCUT (21:13)
[2022-01-17 02:45] VITALS: BP 95/46; PULSE 73; RESP 16; TEMP 36.3; O2SAT 94
[2022-01-17 06:06] LABS: Creatinine Clr Calc Pharmacy 31.9; Estimated Glomerular Filt Rate 59
[2022-01-17 07:44] VITALS: BP 95/46; PULSE 78; RESP 18; TEMP 36.6; O2SAT 93
--- NOTE | 2022-01-17 07:58 | HO.PM.IMPN ---
Subjective Subjective Date of Service: 01/18/22 Interval History: Seen in f/u for infected leg wound interim history: no pain, no new issue Review of Systems Gen: no fever Skin: wounds on legs Physical Exam Vital Signs: Vital Signs: Last Vital Signs Temp 97.8 F 01/17/22 07:44 Pulse 78 01/17/22 07:44 Resp 18 01/17/22 07:44 BP 95/46 L 01/17/22 07:44 Pulse Ox 93 01/17/22 07:44 O2 Del Method 01/17/22 07:44 O2 Flow Rate 2 01/17/22 07:44 BMI result Body Mass Index 15.9 Const: Other: General: AO X 3, no acute distress, Resp: CTA bilateral CVS: S1,S2,RRR GI: +BS, NT, no distention Skin: see prior pictures Neuro: motor grossly intact Psych: appropriate affect Objective Data Active Medications Acetaminophen (Acetaminophen 325 Mg Tablet) 650 mg PO Q6H PRN PRN Reason: Pain, Mild (Pain Scale 1-3) Albuterol Sulfate (Albuterol Sulfate 90 Mcg 8 Gm Inhaler) 2 puff INHALE Q6H PRN PRN Reason: Wheezing Atorvastatin Calcium (Atorvastatin Calcium 40 Mg Tablet) 40 mg PO BEDTIME [facility] Last Admin: 01/16/22 21:22 Dose: Not Given Documented By: KEATON Non-Admin Reason: Patient Refused Dextrose (Dextrose 50 % 25 Gm/50 Ml Syringe) 25 gm IVPUSH Q15M PRN; Protocol PRN Reason: per Hypoglycemia Standing Ord. Last Admin: 01/16/22 11:20 Dose: 25 gm Documented By: OLAYINKA Ezetimibe (Ezetimibe 10 Mg Tablet) 10 mg PO BEDTIME [facility] Last Admin: 01/16/22 21:48 Dose: Not Given Documented By: KEATON Non-Admin Reason: Patient Refused Enoxaparin Sodium (Enoxaparin Sodium 40 Mg/0.4 Ml Syringe) 40 mg SUBCUT Q24H [facility] Last Admin: 01/16/22 21:13 Dose: 40 mg Documented By: KEATON Fentanyl (Fentanyl Citrate/Pf 100 Mcg/2 Ml Vial) 25 mcg IVPUSH Q5M PRN; Protocol PRN Reason: Pain, Moderate (Pain Scale 4-6 Glucose (Glucose Gel 15 Gm Gel..Gram.) 15 gm PO Q15M PRN; Protocol PRN Reason: per Hypoglycemia Standing Ord. Glyburide (Glyburide 2.5 Mg Tablet) 2.5 mg PO DAILY [facility] Last Admin: 01/16/22 08:00 Dose: Not Given Documented By: OLAYINKA Non-Admin Reason: NPO Vancomycin HCl 500 mg/ Sodium (Chloride) 110 mls @ 110 mls/hr IV Q12H [facility] Last Infusion: 01/16/22 22:04 Dose: 0 mls/hr Documented By: KEATON Insulin Human Lispro (Insulin Lispro 100 Unit/Ml 3 Ml Vial) 0 unit SUBCUT QIDACHS [facility]; Protocol Last Admin: 01/16/22 21:07 Dose: 4 unit Documented By: KEATON Melatonin (Melatonin 3 Mg Tablet) 6 mg PO BEDTIME PRN PRN Reason: Insomnia Metformin HCl (Metformin Hcl 500 Mg Tablet) 500 mg PO BID [facility] Last Admin: 01/16/22 17:32 Dose: 500 mg Documented By: KEATON Ondansetron HCl (Ondansetron Hcl 4 Mg/2 Ml Vial) 4 mg IVPUSH ONCE PRN PRN Reason: Nausea and Vomiting Pharmacy Consult (Consult Rx Vancomycin Dosing) 1 each MISCELLANE DAILY PRN PRN Reason: Consult order Pharmacy Consult (Consult Rx Vancomycin Dosing) 1 each MISCELLANE DAILY PRN PRN Reason: Consult order Senna (Sennosides 8.6 Mg Tablet) 17.2 mg PO BEDTIME PRN PRN Reason: Constipation Sodium Chloride (0.9 % Sodium Chloride Flush 3 Ml Syringe) 3 ml IVFLUSH QSHIFT [facility] Last Admin: 01/16/22 23:52 Dose: 3 ml Documented By: FRANCESCO Labs CBC & Chem 7: 01/15/22 04:53 01/18/22 05:47 Labs: Laboratory Results - last 24 hr 01/16/22 01/16/22 01/16/22 08:02 11:06 11:40 Estim Creat Clear Calc 44.1 Estimated GFR > 60 POC Glucose 60 205 H Random Vancomycin 01/16/22 01/16/22 01/16/22 12:01 12:22 16:47 Estim Creat Clear Calc Estimated GFR POC Glucose 192 H 162 H 74 Random Vancomycin 01/16/22 01/16/22 01/17/22 19:14 19:24 05:39 Estim Creat Clear Calc 31.9 Estimated GFR 59 POC Glucose 222 H Random Vancomycin 8.5 L Microbiology Microbiology Results: Microbiology 01/14/22 18:58 Blood Culture - Preliminary Blood - Venous No growth after 48 hours. 01/14/22 18:45 Blood Culture - Preliminary Blood - Venous No growth after 48 hours. Assessment and Plan (1) Infestation, maggot: Status: Acute Plan 81-year-old female with a past medical history of diabetes, varicose veins, chronic bilateral lymphedema, anxiety, depression, bilateral leg wounds-follows with [facility], tobacco dependence, COPD, hypertension, peripheral neuropathy presented to the hospital today with a chief complaint of bilateral leg wounds.? Admitted for following Bilateral leg wounds: Patient on presentation noted to have maggots in the left leg wound-status post debridement in the ER.? s/p OR debridment by Dr. Negro 01/16, dressing changes per surgeon Continue IV vancomycin D4 Venous doppler no DVT ID recommend oral doxy x 10 at DC History of diabetes: Continue Metformin Insulin sliding scale DVT prophylaxis:? Lovenox Code status:? Full code Need for inaptient: infected wound of the leg that need surgical intervention and IV antibiotics PT is recommending STR Quality Stroke Does the patient have a stroke diagnosis?: No VTE Prior VTE?: No VTE Risk Level:: Medical - moderate - high VTE Device Contraindication: Treatment Not Indicated VTE Drug Contraindication: N/A - Med Ordered
[2022-01-17 08:02] LABS: Glucose, Whole Blood 58 mg/dL (60-115)
--- NOTE | 2022-01-17 09:20 | HE.PHANOTE ---
Vancomycin Dosing Addendum Vancomycin Trough scheduled for 1899 tonight, continue with current regimen for now. Cr increasing.
[2022-01-17] MEDS: vancomycin HCL 500 MG in 0.9 % Sodium Chloride 100 ML 110 MG IV ×2 (10:25→21:26)
[2022-01-17] MEDS: 0.9 % Sodium Chloride Flush 3 ML SYRINGE IVFLUSH ×2 (10:26→23:28)
--- NOTE | 2022-01-17 10:36 | PM.EVENT ---
Event Note Date of Service: 01/17/22 Event Note: patient underwent bilateral lower extremity debridement yesterday. No evidence of overt maggot infection. wounds were thoroughly cleansed. I have requested Dr. Shaver who performed a dressing change on Wednesday. Should that all look okay patient be stable for discharge. I will write discharge dressing instructions in the discharge summary. In addition the patient can follow up with me in approximately 2 weeks as an outpatient. Thank you for allowing me to participate in her care.
[2022-01-17 11:05] VITALS: BP 95/46; PULSE 78; O2SAT 93
[2022-01-17 11:29] VITALS: BP 111/53; PULSE 85; RESP 18; TEMP 37.3; O2SAT 91
[2022-01-17 11:33] LABS: Glucose, Whole Blood 100 mg/dL (60-115)
[2022-01-17 15:46] VITALS: BP 105/51; PULSE 78; RESP 22; TEMP 36.2; O2SAT 93
[2022-01-17 16:15] LABS: Glucose, Whole Blood 108 mg/dL (60-115)
[2022-01-17 19:08] VITALS: BP 103/51; PULSE 79; RESP 18; TEMP 36.9; O2SAT 97
[2022-01-17 19:48] LABS: Vancomycin Random 11.1 mcg/mL (15-20)
[2022-01-17 20:08] LABS: Glucose, Whole Blood 124 mg/dL (60-115)
[2022-01-17] MEDS: Atorvastatin Calcium 40 MG TABLET PO (21:24)
[2022-01-17] MEDS: Enoxaparin Sodium 40 MG/0.4 ML SYRINGE SUBCUT (21:27)
[2022-01-17] MEDS: metFORMIN HCl 500 MG TABLET PO (21:33)
[2022-01-17 23:57] LABS: Glucose, Whole Blood 108 mg/dL (60-115)
[2022-01-18] VITALS (7 sets, daily range): BP systolic 107–122; BP diastolic 56–59; PULSE 65–78; RESP 16–19; TEMP 36.3–37.1; O2SAT 91–97
[2022-01-18 03:54] LABS: Glucose, Whole Blood 77 mg/dL (60-115)
[2022-01-18 06:29] LABS: Creatinine Clr Calc Pharmacy 39.2; Estimated Glomerular Filt Rate > 60
--- NOTE | 2022-01-18 06:50 | HE.PHANOTE ---
RE BELKIS SCR trending back down. Continue current dose, next trough scheduled for 1900 tonight. Thanks Alfonso
[2022-01-18 07:59] LABS: Glucose, Whole Blood 102 mg/dL (60-115)
[2022-01-18] MEDS: vancomycin HCL 500 MG in 0.9 % Sodium Chloride 100 ML 110 MG IV (08:52)
[2022-01-18] MEDS: metFORMIN HCl 500 MG TABLET PO ×2 (08:52→20:23)
[2022-01-18] MEDS: 0.9 % Sodium Chloride Flush 3 ML SYRINGE IVFLUSH ×3 (08:53→20:24)
--- NOTE | 2022-01-18 09:21 | P.PNIM_ITS ---
Subjective Subjective Date of Service: 01/18/22 Interval History: Seen in f/u for infected leg wound interim history: no new issues Review of Systems Gen: no fever Skin: wounds on legs Physical Exam Vital Signs: Vital Signs: Last Vital Signs Temp 98.5 F 01/18/22 07:58 Pulse 78 01/18/22 07:58 Resp 18 01/18/22 07:58 BP 115/58 L 01/18/22 07:58 Pulse Ox 91 L 01/18/22 07:58 O2 Del Method 01/18/22 07:58 O2 Flow Rate 2 01/18/22 07:58 BMI result Body Mass Index 15.9 Const: Other: General: AO X 3, no acute distress, Resp: CTA bilateral CVS: S1,S2,RRR GI: +BS, NT, no distention Skin: legs dressing in place post surgery Neuro: motor grossly intact Psych: appropriate affect Objective Data Active Medications Acetaminophen (Acetaminophen 325 Mg Tablet) 650 mg PO Q6H PRN PRN Reason: Pain, Mild (Pain Scale 1-3) Albuterol Sulfate (Albuterol Sulfate 90 Mcg 8 Gm Inhaler) 2 puff INHALE Q6H PRN PRN Reason: Wheezing Atorvastatin Calcium (Atorvastatin Calcium 40 Mg Tablet) 40 mg PO BEDTIME [facility] Last Admin: 01/17/22 21:24 Dose: 40 mg Documented By: KONG Dextrose (Dextrose 50 % 25 Gm/50 Ml Syringe) 25 gm IVPUSH Q15M PRN; Protocol PRN Reason: per Hypoglycemia Standing Ord. Last Admin: 01/16/22 11:20 Dose: 25 gm Documented By: OLAYINKA Ezetimibe (Ezetimibe 10 Mg Tablet) 10 mg PO BEDTIME [facility] Last Admin: 01/17/22 21:25 Dose: Not Given Documented By: KONG Non-Admin Reason: Patient Refused Enoxaparin Sodium (Enoxaparin Sodium 40 Mg/0.4 Ml Syringe) 40 mg SUBCUT Q24H [facility] Last Admin: 01/17/22 21:27 Dose: 40 mg Documented By: KONG Fentanyl (Fentanyl Citrate/Pf 100 Mcg/2 Ml Vial) 25 mcg IVPUSH Q5M PRN; Protocol PRN Reason: Pain, Moderate (Pain Scale 4-6 Glucose (Glucose Gel 15 Gm Gel..Gram.) 15 gm PO Q15M PRN; Protocol PRN Reason: per Hypoglycemia Standing Ord. Glyburide (Glyburide 2.5 Mg Tablet) 2.5 mg PO DAILY [facility] Last Admin: 01/18/22 08:58 Dose: Not Given Documented By: DORENE Non-Admin Reason: Patient Refused Vancomycin HCl 500 mg/ Sodium (Chloride) 110 mls @ 110 mls/hr IV Q12H [facility] Last Admin: 01/18/22 08:52 Dose: 110 mls/hr Documented By: DORENE Insulin Human Lispro (Insulin Lispro 100 Unit/Ml 3 Ml Vial) 0 unit SUBCUT QID ACHS [facility]; Protocol Last Admin: 01/18/22 08:26 Dose: Not Given Documented By: DORENE Non-Admin Reason: No Insulin Coverage Melatonin (Melatonin 3 Mg Tablet) 6 mg PO BEDTIME PRN PRN Reason: Insomnia Metformin HCl (Metformin Hcl 500 Mg Tablet) 500 mg PO BID [facility] Last Admin: 01/18/22 08:52 Dose: 500 mg Documented By: DORENE Ondansetron HCl (Ondansetron Hcl 4 Mg/2 Ml Vial) 4 mg IVPUSH ONCE PRN PRN Reason: Nausea and Vomiting Pharmacy Consult (Consult Rx Vancomycin Dosing) 1 each MISCELLANE DAILY PRN PRN Reason: Consult order Pharmacy Consult (Consult Rx Vancomycin Dosing) 1 each MISCELLANE DAILY PRN PRN Reason: Consult order Senna (Sennosides 8.6 Mg Tablet) 17.2 mg PO BEDTIME PRN PRN Reason: Constipation Sodium Chloride (0.9 % Sodium Chloride Flush 3 Ml Syringe) 3 ml IVFLUSH QSHIFT [facility] Last Admin: 01/18/22 08:53 Dose: 3 ml Documented By: DORENE Labs CBC & Chem 7: 01/15/22 04:53 01/18/22 05:47 Labs: Laboratory Results - last 24 hr 01/17/22 01/17/22 01/17/22 11:26 15:35 19:01 Estim Creat Clear Calc Estimated GFR POC Glucose 100 108 Random Vancomycin 11.1 L 01/17/22 01/17/22 01/18/22 19:16 23:52 03:47 Estim Creat Clear Calc Estimated GFR POC Glucose 124 H 108 77 Random Vancomycin 01/18/22 01/18/22 05:47 07:26 Estim Creat Clear Calc 39.2 Estimated GFR > 60 POC Glucose 102 Random Vancomycin Assessment and Plan (1) Infestation, got: Status: Acute Plan 81-year-old female with a past medical history of diabetes, varicose veins, chronic bilateral lymphedema, anxiety, depression, bilateral leg wounds-follows with Wound Clinic, tobacco dependence, COPD, hypertension, peripheral neuropathy presented to the hospital today with a chief complaint of bilateral leg wounds.? Admitted for following Bilateral leg wounds: Patient on presentation noted to have maggots in the left leg wound-status post debridement in the ER.? s/p OR debridment by Dr. Negro 01/16, dressing changes per surgeon Continue IV vancomycin D5, change to PO Doxy per ID recommendation Venous doppler no DVT History of diabetes: Continue Metformin Insulin sliding scale DVT prophylaxis:? Lovenox Code status:? Full code Need for inaptient: infected wound of the legs s/p surgery for debridment, and now need short term rehab PT is recommending STR Quality Stroke Does the patient have a stroke diagnosis?: No VTE Prior VTE?: No VTE Risk Level:: Medical - moderate - high VTE Device Contraindication: Treatment Not Indicated VTE Drug Contraindication: N/A - Med Ordered
--- NOTE | 2022-01-18 11:23 | HO.POSTANES ---
Post Anesthesia Evaluation Post Anesthesia Evaluation Vital Signs: Vital Signs Temp Pulse Resp BP Pulse Ox O2 Del Method O2 Flow Rate 01/18/22 07:58 98.5 F 78 18 115/58 L 91 L Nasal Cannula 2 01/18/22 04:00 98.1 F 74 18 117/59 L 92 Nasal Cannula 2 01/18/22 00:00 98.8 F 67 18 122/56 L 92 Nasal Cannula 2 Anesthesia: Monitored Mental Status: Awake Pain Control: Satisfactory Nausea/Vomiting: None Hydration: Adequate Anesthesia-Related Issues: No Anes. Related Issues
[2022-01-18 11:58] LABS: Glucose, Whole Blood 90 mg/dL (60-115)
[2022-01-18] MEDS: glyBURIDE 2.5 MG TABLET PO (12:41)
[2022-01-18 16:11] LABS: Glucose, Whole Blood 98 mg/dL (60-115)
[2022-01-18 19:37] LABS: Vancomycin Trough 14.1 mcg/mL (10.0-20.0)
[2022-01-18 19:57] LABS: Glucose, Whole Blood 97 mg/dL (60-115)
[2022-01-18] MEDS: Enoxaparin Sodium 40 MG/0.4 ML SYRINGE SUBCUT (20:23)
[2022-01-18] MEDS: Atorvastatin Calcium 40 MG TABLET PO (20:23)
[2022-01-19] VITALS (7 sets, daily range): BP systolic 108–136; BP diastolic 54–65; PULSE 72–109; RESP 18–20; TEMP 36.4–37.4; O2SAT 93–98
[2022-01-19 07:06] LABS: Glucose, Whole Blood 63 mg/dL (60-115)
[2022-01-19 07:16] LABS: Creatinine Clr Calc Pharmacy 42.6; Estimated Glomerular Filt Rate > 60
[2022-01-19] MEDS: 0.9 % Sodium Chloride Flush 3 ML SYRINGE IVFLUSH ×2 (09:10→20:22)
[2022-01-19] MEDS: metFORMIN HCl 500 MG TABLET PO ×2 (09:18→20:18)
--- NOTE | 2022-01-19 10:19 | MHC.CLN ---
F/U DIET=REGULAR (ADVANCED 01/16), ENSURE TID. QUALIFIES MODERATELY MALNOURISHED. LIBERALIZED DIET APPROPRIATE TO PROMOTE INTAKE. SUPPLEMENT ENSURE TID PROVIDES ADDITIONAL 1050 KCALS, 60 G PROTEIN. INTAKE AT MEALS 25-50%. FOLLOW FOR INTAKE AND WEIGHT.
--- NOTE | 2022-01-19 10:24 | HO.PM.IMPN ---
Subjective Subjective Date of Service: 01/19/22 Interval History: Seen in f/u for infected leg wound interim history: no new issues, no pain in the leg. Review of Systems Gen: no fever Skin: wounds on legs Physical Exam Vital Signs: Vital Signs: Last Vital Signs Temp 97.9 F 01/19/22 06:46 Pulse 75 01/19/22 06:46 Resp 18 01/19/22 06:46 BP 109/57 L 01/19/22 06:46 Pulse Ox 96 01/19/22 06:46 O2 Del Method 01/19/22 06:46 O2 Flow Rate 2 01/19/22 06:46 BMI result Body Mass Index 15.9 Const: Other: General: AO X 3, no acute distress, Resp: CTA bilateral CVS: S1,S2,RRR GI: +BS, NT, no distention Skin: legs dressing in place post surgery Neuro: motor grossly intact Psych: appropriate affect Objective Data Active Medications Acetaminophen (Acetaminophen 325 Mg Tablet) 650 mg PO Q6H PRN PRN Reason: Pain, Mild (Pain Scale 1-3) Albuterol Sulfate (Albuterol Sulfate 90 Mcg 8 Gm Inhaler) 2 puff INHALE Q6H PRN PRN Reason: Wheezing Atorvastatin Calcium (Atorvastatin Calcium 40 Mg Tablet) 40 mg PO BEDTIME [facility] Last Admin: 01/18/22 20:23 Dose: 40 mg Documented By: FAVIAN Dextrose (Dextrose 50 % 25 Gm/50 Ml Syringe) 25 gm IVPUSH Q15M PRN; Protocol PRN Reason: per Hypoglycemia Standing Ord. Last Admin: 01/16/22 11:20 Dose: 25 gm Documented By: OLAYINKA Doxycycline Hyclate (Doxycycline Hyclate 100 Mg Tablet) 100 mg PO Q12H [facility] Last Admin: 01/19/22 09:18 Dose: 100 mg Documented By: MICHELLE Ezetimibe (Ezetimibe 10 Mg Tablet) 10 mg PO BEDTIME [facility] Last Admin: 01/18/22 20:35 Dose: Not Given Documented By: FAVIAN Non-Admin Reason: Patient Refused Enoxaparin Sodium (Enoxaparin Sodium 40 Mg/0.4 Ml Syringe) 40 mg SUBCUT Q24H [facility] Last Admin: 01/18/22 20:23 Dose: 40 mg Documented By: FAVIAN Fentanyl (Fentanyl Citrate/Pf 100 Mcg/2 Ml Vial) 25 mcg IVPUSH Q5M PRN; Protocol PRN Reason: Pain, Moderate (Pain Scale 4-6 Glucose (Glucose Gel 15 Gm Gel..Gram.) 15 gm PO Q15M PRN; Protocol PRN Reason: per Hypoglycemia Standing Ord. Glyburide (Glyburide 2.5 Mg Tablet) 2.5 mg PO DAILY@1200 [facility] Last Admin: 01/18/22 12:41 Dose: 2.5 mg Documented By: DORENE Insulin Human Lispro (Insulin Lispro 100 Unit/Ml 3 Ml Vial) 0 unit SUBCUT QIDACHS [facility]; Protocol Last Admin: 01/19/22 07:41 Dose: Not Given Documented By: IMCHELLE Non-Admin Reason: No Insulin Coverage Melatonin (Melatonin 3 Mg Tablet) 6 mg PO BEDTIME PRN PRN Reason: Insomnia Metformin HCl (Metformin Hcl 500 Mg Tablet) 500 mg PO BID [facility] Last Admin: 01/19/22 09:18 Dose: 500 mg Documented By: MICHELLE Ondansetron HCl (Ondansetron Hcl 4 Mg/2 Ml Vial) 4 mg IVPUSH ONCE PRN PRN Reason: Nausea and Vomiting Pharmacy Consult (Consult Rx Vancomycin Dosing) 1 each MISCELLANE DAILY PRN PRN Reason: Consult order Pharmacy Consult (Consult Rx Vancomycin Dosing) 1 each MISCELLANE DAILY PRN PRN Reason: Consult order Senna (Sennosides 8.6 Mg Tablet) 17.2 mg PO BEDTIME PRN PRN Reason: Constipation Sodium Chloride (0.9 % Sodium Chloride Flush 3 Ml Syringe) [facility] Admin: 01/19/22 09:10 Dose: 3 ml Documented By: MICHELLE Labs CBC & Chem 7: 01/15/22 04:53 01/19/22 05:27 Labs: Laboratory Results - last 24 hr 01/18/22 01/18/22 01/18/22 11:24 15:58 19:11 Estim Creat Clear Calc Estimated GFR POC Glucose 90 98 Vancomycin Trough 14.1 01/18/22 01/19/22 01/19/22 19:50 05:27 06:46 Estim Creat Clear Calc 42.6 Estimated GFR > 60 POC Glucose 97 63 Vancomycin Trough Assessment and Plan (1) troy Jimenez: Status: Acute Plan 81-year-old female with a past medical history of diabetes, varicose veins, chronic bilateral lymphedema, anxiety, depression, bilateral leg wounds-follows with Wound Clinic, tobacco dependence, COPD, hypertension, peripheral neuropathy presented to the hospital with a chief complaint of bilateral leg wound with magots Bilateral leg wounds:Patient on presentation noted to have maggots in the left leg wound-status post debridement in the ER.? s/p OR debridment by Dr. Negro 01/16 with no extension to bone. Dressing changes per surgeon (Dr. Negro away till Wednesday)--[place] covering She was on IV Vanco for 5 days. Was seen by ID and recommended PO doxy---she is now PO Doxy D2 Venous doppler no DVT History of diabetes: Continue Metformin Insulin sliding scale DVT prophylaxis:? Lovenox Code status:? Full code Need for inaptient: infected wound of the legs s/p surgery for debridment, and now need short term rehab Plan of care discussed with her including going to rehab PT is recommending [facility] working on bed availability otherwise she's ready to for MD Quality Stroke Does the patient have a stroke diagnosis?: No VTE Prior VTE?: No VTE Risk Level:: Medical - moderate - high VTE Device Contraindication: Treatment Not Indicated VTE Drug Contraindication: N/A - Med Ordered
--- NOTE | 2022-01-19 10:51 | P.PNGS_ITS ---
Subjective Subjective Date of Service: 01/19/22 <Tamika Ho PA-C - Last Filed: 01/19/22 11:01> 01/19/22 <Mike Shaver MD - Last Filed: 01/19/22 11:47> Interval history: Feels ok. Denies leg pain. <Tamika Ho PA-C - Last Filed: 01/19/22 11:01> Physical Exam Vital Signs: Vital Signs: Last Vital Signs Temp 97.9 F 01/19/22 06:46 Pulse 75 01/19/22 10:37 Resp 18 01/19/22 06:46 BP 109/57 L 01/19/22 10:37 Pulse Ox 96 01/19/22 10:37 O2 Del Method 01/19/22 06:46 O2 Flow Rate 2 01/19/22 06:46 BMI result Body Mass Index 15.9 <Tamika Ho PA-C - Last Filed: 01/19/22 11:01> Const: General: comfortable and no acute distress <HAYDEN Rodriguez - Last Filed: 01/19/22 11:01> Nutritional Appearance: thin <Tamika Ho PA-C - Last Filed: 01/19/22 11:01> Orientation/consciousness: patient oriented x3 <Tamika Ho PA-C - Last Filed: 01/19/22 11:01> Skin: Other: dry excoriated skin <Tamika Ho PA-C - Last Filed: 01/19/22 11:01> Neuro: General: patient oriented x3 <Tamika Ho PA-C - Last Filed: 01/19/22 11:01> Extrem: Other: b/l LE with pretibial open wounds of different sizes, LEFT with largest at lateral/posterior region; all areas clean and beginning to granulate, no evidenc e of necrosis, purulence <Tamika Ho PA-C - Last Filed: 01/19/22 11:01> Other: b/l LE with pretibial open wounds of different sizes, LEFT with largest at lateral/posterior region; all areas clean and beginning to granulate, no evidence of necrosis, purulence Left Leg: Right Leg: <Mike Shaver MD - Last Filed: 01/19/22 11:47> Objective Data Active Medications Acetaminophen (Acetaminophen 325 Mg Tablet) 650 mg PO Q6H PRN PRN Reason: Pain, Mild (Pain Scale 1-3) Albuterol Sulfate (Albuterol Sulfate 90 Mcg 8 Gm Inhaler) 2 puff INHALE Q6H PRN PRN Reason: Wheezing Atorvastatin Calcium (Atorvastatin Calcium 40 Mg Tablet) 40 mg PO BEDTIME [facility] Last Admin: 01/18/22 20:23 Dose: 40 mg Documented By: FAVIAN Dextrose (Dextrose 50 % 25 Gm/50 Ml Syringe) 25 gm IVPUSH Q15M PRN; Protocol PRN Reason: per Hypoglycemia Standing Ord. Last Admin: 01/16/22 11:20 Dose: 25 gm Documented By: OLAYINKA Doxycycline Hyclate (Doxycycline Hyclate 100 Mg Tablet) 100 mg PO Q12H [facility] Last Admin: 01/19/22 09:18 Dose: 100 mg Documented By: MICHELLE Ezetimibe (Ezetimibe 10 Mg Tablet) 10 mg PO BEDTIME [facility] Last Admin: 01/18/22 20:35 Dose: Not Given Documented By: FAVIAN Non-Admin Reason: Patient Refused Enoxaparin Sodium (Enoxaparin Sodium 40 Mg/0.4 Ml Syringe) 40 mg SUBCUT Q24H [facility] Last Admin: 01/18/22 20:23 Dose: 40 mg Documented By: FAVIAN Fentanyl (Fentanyl Citrate/Pf 100 Mcg/2 Ml Vial) 25 mcg IVPUSH Q5M PRN; Protocol PRN Reason: Pain, Moderate (Pain Scale 4-6 Glucose (Glucose Gel 15 Gm Gel..Gram.) 15 gm PO Q15M PRN; Protocol PRN Reason: per Hypoglycemia Standing Ord. Glyburide (Glyburide 2.5 Mg Tablet) 2.5 mg PO DAILY@1200 [facility] Last Admin: 01/18/22 12:41 Dose: 2.5 mg Documented By: ODRENE Insulin Human Lispro (Insulin Lispro 100 Unit/Ml 3 Ml Vial) 0 unit SUBCUT QIDACHS [facility]; Protocol Last Admin: 01/19/22 07:41 Dose: Not Given Documented By: MICHELLE Non-Admin Reason: No Insulin Coverage Melatonin (Melatonin 3 Mg Tablet) 6 mg PO BEDTIME PRN PRN Reason: Insomnia Metformin HCl (Metformin Hcl 500 Mg Tablet) 500 mg PO BID [facility] Last Admin: 01/19/22 09:18 Dose: 500 mg Documented By: MICHELLE Ondansetron HCl (Ondansetron Hcl 4 Mg/2 Ml Vial) 4 mg IVPUSH ONCE PRN PRN Reason: Nausea and Vomiting Pharmacy Consult (Consult Rx Vancomycin Dosing) 1 each MISCELLANE DAILY PRN PRN Reason: Consult order Pharmacy Consult (Consult Rx Vancomycin Dosing) 1 each MISCELLANE DAILY PRN PRN Reason: Consult order Senna (Sennosides 8.6 Mg Tablet) 17.2 mg PO BEDTIME PRN PRN Reason: Constipation Sodium Chloride (0.9 % Sodium Chloride Flush 3 Ml Syringe) 3 ml IVFLUSH [facility] Last Admin: 01/19/22 09:10 Dose: 3 ml Documented By: MICHELLE <Tamika Ho PA-C - Last Filed: 01/19/22 11:01> Labs CBC & Chem 7: : 01/15/22 04:53 01/19/22 05:27 <Tamika Ho PA-C - Last Filed: 01/19/22 11:01> Labs: Laboratory Results - last 24 hr 01/18/22 01/18/22 01/18/22 11:24 15:58 19:11 Estim Creat Clear Calc Estimated GFR POC Glucose 90 98 Vancomycin Trough 14.1 01/18/22 01/19/22 01/19/22 19:50 05:27 06:46 Estim Creat Clear Calc 42.6 Estimated GFR > 60 POC Glucose 97 63 Vancomycin Trough <Tamika Ho PA-C - Last Filed: 01/19/22 11:01> Procedures Date of Service Date of Service: 01/19/22 <Tamika Ho PA-C - Last Filed: 01/19/22 11:01> Progress Note: A&P Assessment and plan (1) Bilateral leg ulcer: Status: Acute <Tamika Ho PA-C - Last Filed: 01/19/22 11:01> Assessment and Plan: Pt is s/p bilateral lower extremity debridement into muscle for nonhealing bilateral lower extremity ulcers with maggot infestation on 01/16/22. Dressings changed today and wounds are clean. Patient tolerated dressing change well. Continue current dressing change of xeroform, 4x4, kerlix and annette wrap every other day as per Dr. Negro instructions. Patient doing well and stable for discharge from wound care stand point. Follow up with Dr. Negro in 2 weeks.? <Tamika Ho PA-C - Last Filed: 01/19/22 11:01> Time Spent With Patient Time: Total time spent is greater than 50% in coordination of care (as documented) at patient's floor/unit and/or counseling patient: <Tamika Ho PA-C - Last Filed: 01/19/22 11:01> Quality Stroke Does the patient have a stroke diagnosis?: No <Tamika Ho PA-C - Last Filed: 01/19/22 11:01> VTE Prior VTE?: No <Tamika Ho PA-C - Last Filed: 01/19/22 11:01> VTE Risk Level:: Medical - moderate - high <JASON Rodriguez Last Filed: 01/19/22 11:01> VTE Device Contraindication: Treatment Not Indicated <Tamika Ho PA-C - Last Filed: 01/19/22 11:01> VTE Drug Contraindication: N/A - Med Ordered <JASON Rodriguez Last Filed: 01/19/22 11:01>
[2022-01-19 11:25] LABS: Glucose, Whole Blood 127 mg/dL (60-115)
--- NOTE | 2022-01-19 12:27 | MHC.CM.PN ---
EM[facility] REVIEWED, PER HOSPITALIST PT MAY BE READY FOR D/C HOWEVER PT REC'S STR, CM MET W/PT WHO IS WILLING TO GO HOWEVER UNSURE WHERE AND PT WILL CONTACT FRIEND/PRIMARY CONTACT CELINA TO DISCUSS PREFERENCES, PT AWARE REFERRAL TO BE PLACED TO LOCAL SNFS, CM WILL CONT O FOLLOW.
[2022-01-19] MEDS: glyBURIDE 2.5 MG TABLET PO (12:45)
[2022-01-19 15:51] LABS: Glucose, Whole Blood 80 mg/dL (60-115)
[2022-01-19 20:00] LABS: Glucose, Whole Blood 101 mg/dL (60-115)
[2022-01-19] MEDS: Enoxaparin Sodium 40 MG/0.4 ML SYRINGE SUBCUT (20:18)
[2022-01-19] MEDS: Atorvastatin Calcium 40 MG TABLET PO (20:18)
[2022-01-20 03:29] VITALS: BP 117/56; PULSE 64; RESP 18; TEMP 36.8; O2SAT 97
[2022-01-20 07:26] LABS: Glucose, Whole Blood 70 mg/dL (60-115)
[2022-01-20] MEDS: 0.9 % Sodium Chloride Flush 3 ML SYRINGE IVFLUSH ×3 (07:30→23:30)
[2022-01-20] MEDS: metFORMIN HCl 500 MG TABLET PO ×2 (07:30→20:07)
[2022-01-20 07:32] LABS: Creatinine Clr Calc Pharmacy 43.9; Estimated Glomerular Filt Rate > 60
[2022-01-20 07:37] VITALS: BP 118/56; PULSE 79; RESP 16; TEMP 36.7; O2SAT 91
--- NOTE | 2022-01-20 09:34 | MHC.CM.PN ---
cm contacted pt's hcp/marjan after receiving message at number on file, marjan voiced concerns about pt being unable to manage at home d/t current mobility limitation, state of house which Marjan rpeorted she offered to clean up for pt and to go over preferred snf's, marjan reports preffered snf is [facility] and then [facility] however neither snf is contracted w/pt's [employer] medicare, per conversation blanket referral to be sent and cm will review bed offers w/marjan as it is too stressful for pt to decide, cm will follow-up w/marjan once bed offers are received.
[2022-01-20 11:20] VITALS: BP 102/52; PULSE 74; RESP 16; TEMP 36.8; O2SAT 97
[2022-01-20 12:05] LABS: Glucose, Whole Blood 99 mg/dL (60-115)
[2022-01-20] MEDS: glyBURIDE 2.5 MG TABLET PO (12:14)
--- NOTE | 2022-01-20 14:21 | HO.PM.IMPN ---
Subjective Subjective Date of Service: 01/20/22 Interval History: Seen in f/u for infected leg wound Review of Systems no new issues, no pain in the leg. no fevers or chills Physical Exam Vital Signs: Vital Signs: Last Vital Signs Temp 98.2 F 01/20/22 11:20 Pulse 74 01/20/22 11:20 Resp 16 01/20/22 11:20 BP 102/52 L 01/20/22 11:20 Pulse Ox 97 01/20/22 11:20 O2 Del Method 01/20/22 11:20 O2 Flow Rate 2 01/20/22 11:20 BMI result Body Mass Index 15.9 General: AO X 3, no acute distress, Resp:? CTA bilateral CVS: S1,S2,RRR GI: +BS, NT, no distention Skin: legs dressing in place post surgery Neuro:? motor grossly intact Psych: appropriate affect Objective Data Active Medications Acetaminophen (Acetaminophen 325 Mg Tablet) 650 mg PO Q6H PRN PRN Reason: Pain, Mild (Pain Scale 1-3) Albuterol Sulfate (Albuterol Sulfate 90 Mcg 8 Gm Inhaler) 2 puff INHALE Q6H PRN PRN Reason: Wheezing Atorvastatin Calcium (Atorvastatin Calcium 40 Mg Tablet) 40 mg PO BEDTIME [facility] Last Admin: 01/19/22 20:18 Dose: 40 mg Documented By: FAVIAN Dextrose (Dextrose 50 % 25 Gm/50 Ml Syringe) 25 gm IVPUSH Q15M PRN; Protocol PRN Reason: per Hypoglycemia Standing Ord. Last Admin: 01/16/22 11:20 Dose: 25 gm Documented By: OLAYINKA Doxycycline Hyclate (Doxycycline Hyclate 100 Mg Tablet) 100 mg PO Q12H [facility] Last Admin: 01/20/22 10:20 Dose: 100 mg Documented By: CRISTIAN Ezetimibe (Ezetimibe 10 Mg Tablet) 10 mg PO BEDTIME [facility] Last Admin: 01/19/22 20:48 Dose: Not Given Documented By: FAVIAN Non-Admin Reason: Patient Refused Enoxaparin Sodium (Enoxaparin Sodium 40 Mg/0.4 Ml Syringe) 40 mg SUBCUT Q24H [facility] Last Admin: 01/19/22 20:18 Dose: 40 mg Documented By: FAVIAN Fentanyl (Fentanyl Citrate/Pf 100 Mcg/2 Ml Vial) 25 mcg IVPUSH Q5M PRN; Protocol PRN Reason: Pain, Moderate (Pain Scale 4-6 Glucose (Glucose Gel 15 Gm Gel..Gram.) 15 gm PO Q15M PRN; Protocol PRN Reason: per Hypoglycemia Standing Ord. Glyburide (Glyburide 2.5 Mg Tablet) 2.5 mg PO DAILY@1200 [facility] Last Admin: 01/20/22 12:14 Dose: 2.5 mg Documented By: CRISTIAN Insulin Human Lispro (Insulin Lispro 100 Unit/Ml 3 Ml Vial) 0 unit SUBCUT QIDACHS [facility]; Protocol Last Admin: 01/20/22 12:07 Dose: Not Given Documented By: CRISTIAN Non-Admin Reason: No Insulin Coverage Melatonin (Melatonin 3 Mg Tablet) 6 mg PO BEDTIME PRN PRN Reason: Insomnia Metformin HCl (Metformin Hcl 500 Mg Tablet) 500 mg PO BID [facility] Last Admin: 01/20/22 07:30 Dose: 500 mg Documented By: CRISTIAN Ondansetron HCl (Ondansetron Hcl 4 Mg/2 Ml Vial) 4 mg IVPUSH ONCE PRN PRN Reason: Nausea and Vomiting Pharmacy Consult (Consult Rx Vancomycin Dosing) 1 each MISCELLANE DAILY PRN PRN Reason: Consult order Pharmacy Consult (Consult Rx Vancomycin Dosing) 1 each MISCELLANE DAILY PRN PRN Reason: Consult order Senna (Sennosides 8.6 Mg Tablet) 17.2 mg PO BEDTIME PRN PRN Reason: Constipation Sodium Chloride (0.9 % Sodium Chloride Flush 3 Ml Syringe) [facility] Last Admin: 01/20/22 07:30 Dose: 3 ml Documented By: CRISTIAN Labs CBC & Chem 7: 01/15/22 04:53 01/20/22 05:33 Labs: Laboratory Results - last 24 hr 01/19/22 01/19/22 01/20/22 15:06 19:03 05:33 Estim Creat Clear Calc 43.9 Estimated GFR > 60 POC Glucose 80 101 01/20/22 01/20/22 07:05 11:09 Estim Creat Clear Calc Estimated GFR POC Glucose 70 99 Microbiology Microbiology Results: Microbiology 01/14/22 18:58 Blood Culture - Final Blood - Venous No growth after 5 days. 01/14/22 18:45 Blood Culture - Final Blood - Venous No growth after 5 days. Assessment and Plan (1) Bilateral leg ulcer: Status: Acute (2) Infestation, maggot: Status: Acute Plan 81-year-old female with a past medical history of diabetes, varicose veins, chronic bilateral lymphedema, anxiety, depression, bilateral leg wounds-follows with Wound Clinic, tobacco dependence, COPD, hypertension, peripheral neuropathy presented to the hospital? with a chief complaint of bilateral leg wound with magots Bilateral leg wounds:Patient on presentation noted to have maggots in the left leg wound-status post debridement in the ER.? s/p OR debridment by Dr. Negro 01/16 with no extension to bone. Dressing changes per surgeon (Dr. Negro away till Wednesday)--Mazzucco covering She was on IV Vanco for 5 days. Was seen by ID and recommended? PO doxy---she is now PO Doxy D2 Venous doppler no DVT History of diabetes: Continue Metformin ?Insulin sliding scale DVT prophylaxis:? Lovenox Code status:? Full code Need for inaptient: infected wound of the legs s/p surgery for debridment, and now need short term rehab Plan of care discussed with her including going to rehab PT is recommending STR CM working on bed availability otherwise she's ready to for [place] Quality Stroke Does the patient have a stroke diagnosis?: No VTE Prior VTE?: No VTE Risk Level:: Medical - moderate - high VTE Device Contraindication: Treatment Not Indicated VTE Drug Contraindication: N/A - Med Ordered
[2022-01-20 15:12] VITALS: BP 111/55; PULSE 76; RESP 16; TEMP 36.9; O2SAT 95
[2022-01-20 15:48] LABS: Glucose, Whole Blood 152 mg/dL (60-115)
[2022-01-20] MEDS: Insulin Lispro 100 UNIT/ML 3 ML VIAL SUBCUT (16:41)
[2022-01-20 18:58] VITALS: BP 113/56; PULSE 74; RESP 15; TEMP 36.8; O2SAT 96
[2022-01-20 19:51] LABS: Glucose, Whole Blood 92 mg/dL (60-115)
[2022-01-20] MEDS: Atorvastatin Calcium 40 MG TABLET PO (20:06)
[2022-01-20] MEDS: Enoxaparin Sodium 40 MG/0.4 ML SYRINGE SUBCUT (20:07)
[2022-01-20 23:27] VITALS: BP 124/56; PULSE 75; RESP 18; TEMP 37.1; O2SAT 100
[2022-01-21 03:08] VITALS: BP 123/65; PULSE 70; RESP 18; TEMP 36.4; O2SAT 100
[2022-01-21 06:43] LABS: Creatinine Clr Calc Pharmacy 45.2; Estimated Glomerular Filt Rate > 60
[2022-01-21 07:24] LABS: Glucose, Whole Blood 74 mg/dL (60-115)
[2022-01-21 07:26] VITALS: BP 115/59; PULSE 69; RESP 18; TEMP 36.4; O2SAT 92
[2022-01-21] MEDS: metFORMIN HCl 500 MG TABLET PO ×2 (08:36→20:59)
[2022-01-21] MEDS: 0.9 % Sodium Chloride Flush 3 ML SYRINGE IVFLUSH ×3 (08:36→21:01)
--- NOTE | 2022-01-21 09:34 | MHC.CLN ---
F/U DIET=REGULAR, ENSURE TID. LIBERALIZED DIET APPROPRIATE TO PROMOTE INTAKE. SUPPLEMENT ENSURE TID PROVIDES ADDITIONAL 1050 KCALS, 60 G PROTEIN. INTAKE AT MEALS VARIABLE WITH MOST 50-75%. FOLLOW FOR INTAKE AND WEIGHT.
--- NOTE | 2022-01-21 10:58 | MHC.CM.PN ---
EMR REVIEWED. PT MEDICLLY CND HAS BED OFFER AT [facility] HOWEVER THEY DO NOT HAVE A BED TODAY, ANTIC PT WILL D/C TOMORROW WHEN BED AVAILABLE AND INSURANCE AUTH IS GRANTED, CM WILL CONT TO FOLLOW D/C NEEDS.
[2022-01-21 11:18] VITALS: BP 102/54; PULSE 76; RESP 18; TEMP 37; O2SAT 100
[2022-01-21 11:20] LABS: Glucose, Whole Blood 231 mg/dL (60-115)
[2022-01-21] MEDS: Insulin Lispro 100 UNIT/ML 3 ML VIAL SUBCUT (11:47)
[2022-01-21] MEDS: glyBURIDE 2.5 MG TABLET PO (11:51)
--- NOTE | 2022-01-21 14:34 | P.PNIM_ITS ---
Subjective Subjective Date of Service: 01/21/22 Interval History: Seen in f/u for infected leg wound Review of Systems no new issues, no pain in the leg. no fevers or chills Physical Exam Vital Signs: Vital Signs: Last Vital Signs Temp 98.6 F 01/21/22 11:18 Pulse 76 01/21/22 11:18 Resp 18 01/21/22 11:18 BP 102/54 L 01/21/22 11:18 Pulse Ox 100 01/21/22 11:18 O2 Del Method 01/21/22 11:18 O2 Flow Rate 2 01/21/22 07:26 BMI result Body Mass Index 15.9 ?General: AO X 3, no acute distress, Resp:? CTA bilateral CVS: S1,S2,RRR GI: +BS, NT, no distention Skin: legs dressing in place post surgery Neuro:? motor grossly intact Psych: appropriate affect Objective Data Active Medications Acetaminophen (Acetaminophen 325 Mg Tablet) 650 mg PO Q6H PRN PRN Reason: Pain, Mild (Pain Scale 1-3) Albuterol Sulfate (Albuterol Sulfate 90 Mcg 8 Gm Inhaler) 2 puff INHALE Q6H PRN PRN Reason: Wheezing Atorvastatin Calcium (Atorvastatin Calcium 40 Mg Tablet) 40 mg PO BEDTIME [facility] Last Admin: 01/20/22 20:06 Dose: 40 mg Documented By: JESUS Dextrose (Dextrose 50 % 25 Gm/50 Ml Syringe) 25 gm IVPUSH Q15M PRN; Protocol PRN Reason: per Hypoglycemia Standing Ord. Last Admin: 01/16/22 11:20 Dose: 25 gm Documented By: OLAYINKA Doxycycline Hyclate (Doxycycline Hyclate 100 Mg Tablet) 100 mg PO Q12H [facility] Last Admin: 01/21/22 09:19 Dose: 100 mg Documented By: CRISTIAN Ezetimibe (Ezetimibe 10 Mg Tablet) 10 mg PO BEDTIME [facility] Last Admin: 01/20/22 20:07 Dose: Not Given Documented By: JESUS Non-Admin Reason: Patient Refused Enoxaparin Sodium (Enoxaparin Sodium 40 Mg/0.4 Ml Syringe) 40 mg SUBCUT Q24H [facility] Last Admin: 01/20/22 20:07 Dose: 40 mg Documented By: JESUS Glucose (Glucose Gel 15 Gm Gel..Gram.) 15 gm PO Q15M PRN; Protocol PRN Reason: per Hypoglycemia Standing Ord. Glyburide (Glyburide 2.5 Mg Tablet) 2.5 mg PO DAILY@1200 [facility] Last Admin: 01/21/22 11:51 Dose: 2.5 mg Documented By: FELECIA Insulin Human Lispro (Insulin Lispro 100 Unit/Ml 3 Ml Vial) 0 unit SUBCUT QIDACHS [facility]; Protocol Last Admin: 01/21/22 11:47 Dose: 4 unit Documented By: FELECIA Melatonin (Melatonin 3 Mg Tablet) 6 mg PO BEDTIME PRN PRN Reason: Insomnia Metformin HCl (Metformin Hcl 500 Mg Tablet) 500 mg PO BID [facility] Last Admin: 01/21/22 08:36 Dose: 500 mg Documented By: CRISTIAN Ondansetron HCl (Ondansetron Hcl 4 Mg/2 Ml Vial) 4 mg IVPUSH ONCE PRN PRN Reason: Nausea and Vomiting Pharmacy Consult (Consult Rx Vancomycin Dosing) 1 each MISCELLANE DAILY PRN PRN Reason: Consult order Pharmacy Consult (Consult Rx Vancomycin Dosing) 1 each MISCELLANE DAILY PRN PRN Reason: Consult order Senna (Sennosides 8.6 Mg Tablet) 17.2 mg PO BEDTIME PRN PRN Reason: Constipation Sodium Chloride (0.9 % Sodium Chloride Flush 3 Ml Syringe) 3 ml IVFLUSH QSHIFT [facility] Last Admin: 01/21/22 08:36 Dose: 3 ml Documented By: CRISTIAN Labs CBC & Chem 7: 01/15/22 04:53 01/21/22 05:33 Labs: Laboratory Results - last 24 hr 01/20/22 01/20/22 01/21/22 15:42 19:47 05:33 Estim Creat Clear Calc 45.2 Estimated GFR > 60 POC Glucose 152 H 92 01/21/22 01/21/22 07:10 11:02 Estim Creat Clear Calc Estimated GFR POC Glucose 74 231 H Assessment and Plan (1) Bilateral leg ulcer: Status: Acute Plan 81-year-old female with a past medical history of diabetes, varicose veins, chronic bilateral lymphedema, anxiety, depression, bilateral leg wounds-follows with Wound Clinic, tobacco dependence, COPD, hypertension, peripheral neuropathy presented to the hospital? with a chief complaint of bilateral leg wound with magots Bilateral leg wounds:Patient on presentation noted to have maggots in the left leg wound-status post debridement in the ER.? s/p OR debridment by Dr. Negro 01/16 with no extension to bone. Dressing changes per surgeon (Dr. Negro away till Wednesday)--Mazzucco covering She was on IV Vanco for 5 days. Was seen by ID and recommended? PO doxy---she is now PO Doxy D2 Venous doppler no DVT History of diabetes: Continue Metformin ?Insulin sliding scale DVT prophylaxis:? Lovenox Code status:? Full code Need for inaptient: infected wound of the legs s/p surgery for debridment, and now need short term rehab Plan of care discussed with her including going to rehab PT is recommending [facility] working on bed availability otherwise she's ready to for DC. Quality Stroke Does the patient have a stroke diagnosis?: No VTE Prior VTE?: No VTE Risk Level:: Medical - moderate - high VTE Device Contraindication: Treatment Not Indicated VTE Drug Contraindication: N/A - Med Ordered
[2022-01-21 15:18] VITALS: BP 105/57; PULSE 77; RESP 18; TEMP 36.7; O2SAT 97
[2022-01-21] MEDS: Glucose Gel 15 GM GEL..GRAM. PO (15:29)
[2022-01-21 15:34] LABS: Glucose, Whole Blood 41 mg/dL (60-115)
[2022-01-21 15:53] LABS: Glucose, Whole Blood 72 mg/dL (60-115)
--- NOTE | 2022-01-21 16:27 | MHC.CM.PN ---
CM RECEIVED MESSAGE FROM [facility] AND PER LIAISON THEY DO NOT HAVE A BED TODAY AND ANTIC THEY WILL TOMORROW 01/22, CM WILL CONT TO FOLLOW D/C NEEDS.
[2022-01-21 16:57] LABS: Glucose, Whole Blood 68 mg/dL (60-115)
[2022-01-21 18:28] VITALS: BP 108/53; PULSE 79; RESP 17; TEMP 36.2; O2SAT 93
[2022-01-21 18:42] LABS: Glucose, Whole Blood 78 mg/dL (60-115)
[2022-01-21 20:50] LABS: Glucose, Whole Blood 111 mg/dL (60-115)
[2022-01-21] MEDS: Enoxaparin Sodium 40 MG/0.4 ML SYRINGE SUBCUT (21:00)
[2022-01-21] MEDS: Atorvastatin Calcium 40 MG TABLET PO (21:00)
[2022-01-21 22:06] LABS: Glucose, Whole Blood 98 mg/dL (60-115)
[2022-01-21 23:25] VITALS: BP 133/60; PULSE 78; RESP 18; TEMP 36.7; O2SAT 94
[2022-01-21 23:33] LABS: Glucose, Whole Blood 65 mg/dL (60-115)
[2022-01-22 00:31] LABS: Glucose, Whole Blood 79 mg/dL (60-115)
[2022-01-22 04:00] VITALS: BP 110/59; PULSE 75; RESP 18; TEMP 36.4; O2SAT 99
[2022-01-22 06:58] LABS: Creatinine Clr Calc Pharmacy 46.6; Estimated Glomerular Filt Rate > 60
[2022-01-22 07:15] VITALS: BP 109/56; PULSE 75; RESP 16; TEMP 36.4; O2SAT 93
[2022-01-22 07:38] LABS: Glucose, Whole Blood 102 mg/dL (60-115)
[2022-01-22] MEDS: metFORMIN HCl 500 MG TABLET PO (08:52)
[2022-01-22] MEDS: 0.9 % Sodium Chloride Flush 3 ML SYRINGE IVFLUSH (08:52)
[2022-01-22 09:28] VITALS: BP 109/56; PULSE 75; O2SAT 93
[2022-01-22 11:02] VITALS: BP 109/55; PULSE 75; RESP 18; TEMP 36.9; O2SAT 98
--- NOTE | 2022-01-22 11:10 | P.PNIM_ITS ---
Subjective Subjective Date of Service: 01/22/22 Interval History: Seen in f/u for infected leg wound. Review of Systems no new issues, no pain in the leg. no fevers or chills Physical Exam Vital Signs: Vital Signs: Last Vital Signs Temp 98.5 F 01/22/22 11:02 Pulse 75 01/22/22 11:02 Resp 18 01/22/22 11:02 BP 109/55 L 01/22/22 11:02 Pulse Ox 98 01/22/22 11:02 O2 Del Method 01/22/22 11:02 O2 Flow Rate 2 01/22/22 11:02 BMI result Body Mass Index 15.9 General: AO X 3, no acute distress, Resp:? CTA bilateral CVS: S1,S2,RRR GI: +BS, NT, no distention Skin: legs dressing in place post surgery Neuro:? motor grossly intact Psych: appropriate affect Objective Data Active Medications Acetaminophen (Acetaminophen 325 Mg Tablet) 650 mg PO Q6H PRN PRN Reason: Pain, Mild (Pain Scale 1-3) Albuterol Sulfate (Albuterol Sulfate 90 Mcg 8 Gm Inhaler) 2 puff INHALE Q6H PRN PRN Reason: Wheezing Atorvastatin Calcium (Atorvastatin Calcium 40 Mg Tablet) 40 mg PO BEDTIME [facility] Last Admin: 01/21/22 21:00 Dose: 40 mg Documented By: JESUS Dextrose (Dextrose 50 % 25 Gm/50 Ml Syringe) 25 gm IVPUSH Q15M PRN; Protocol PRN Reason: per Hypoglycemia Standing Ord. Last Admin: 01/16/22 11:20 Dose: 25 gm Documented By: OLAYINKA Doxycycline Hyclate (Doxycycline Hyclate 100 Mg Tablet) 100 mg PO Q12H [facility] Last Admin: 01/22/22 08:52 Dose: 100 mg Documented By: CRISTIAN Ezetimibe (Ezetimibe 10 Mg Tablet) 10 mg PO BEDTIME [facility] Last Admin: 01/21/22 20:58 Dose: Not Given Documented By: JESUS Non-Admin Reason: Patient Refused Enoxaparin Sodium (Enoxaparin Sodium 40 Mg/0.4 Ml Syringe) 40 mg SUBCUT Q24H [facility] Last Admin: 01/21/22 21:00 Dose: 40 mg Documented By: JESUS Glucose (Glucose Gel 15 Gm Gel..Gram.) 15 gm PO Q15M PRN; Protocol PRN Reason: per Hypoglycemia Standing Ord. Last Admin: 01/21/22 15:29 Dose: 15 gm Documented By: CRISTIAN Glyburide (Glyburide 2.5 Mg Tablet) 2.5 mg PO DAILY@1200 [facility] Last Admin: 01/21/22 11:51 Dose: 2.5 mg Documented By: FELECIA Insulin Human Lispro (Insulin Lispro 100 Unit/Ml 3 Ml Vial) 0 unit SUBCUT QIDACHS [facility]; Protocol Last Admin: 01/22/22 08:21 Dose: Not Given Documented By: DABA Non-Admin Reason: No Insulin Coverage Melatonin (Melatonin 3 Mg Tablet) 6 mg PO BEDTIME PRN PRN Reason: Insomnia Metformin HCl (Metformin Hcl 500 Mg Tablet) 500 mg PO BID [facility] Last Admin: 01/22/22 08:52 Dose: 500 mg Documented By: CRISTIAN Ondansetron HCl (Ondansetron Hcl 4 Mg/2 Ml Vial) 4 mg IVPUSH ONCE PRN PRN Reason: Nausea and Vomiting Pharmacy Consult (Consult Rx Vancomycin Dosing) 1 each MISCELLANE DAILY PRN PRN Reason: Consult order Pharmacy Consult (Consult Rx Vancomycin Dosing) 1 each MISCELLANE DAILY PRN PRN Reason: Consult order Senna (Sennosides 8.6 Mg Tablet) 17.2 mg PO BEDTIME PRN PRN Reason: Constipation Sodium Chloride (0.9 % Sodium Chloride Flush 3 Ml [facility]) [facility] Last Admin: 01/22/22 08:52 Dose: 3 ml Documented By: CRISTIAN Labs CBC & Chem 7: 01/15/22 04:53 01/22/22 05:15 Labs: Laboratory Results - last 24 hr 01/21/22 01/21/22 01/21/22 11:02 15:21 15:49 Estim Creat Clear Calc Estimated GFR POC Glucose 231 H 41 L* 72 01/21/22 01/21/22 01/21/22 16:53 18:31 20:44 Estim Creat Clear Calc Estimated GFR POC Glucose 68 78 111 01/21/22 01/21/22 01/22/22 22:02 23:29 00:26 Estim Creat Clear Calc Estimated GFR POC Glucose 98 65 79 01/22/22 01/22/22 05:15 07:21 Estim Creat Clear Calc 46.6 Estimated GFR > 60 POC Glucose 102 Assessment and Plan (1) Bilateral leg ulcer: Status: Acute (2) COPD (chronic obstructive pulmonary disease): Status: Acute (3) Hypoglycemia: Status: Acute Plan 81-year-old female with a past medical history of diabetes, varicose veins, chronic bilateral lymphedema, anxiety, depression, bilateral leg wounds-follows with Wound Clinic, tobacco dependence, COPD, hypertension, peripheral neuropathy presented to the hospital? with a chief complaint of bilateral leg wound with magots Bilateral leg wounds:Patient on presentation noted to have maggots in the left leg wound-status post debridement in the ER.? s/p OR debridment by Dr. Negro 01/16 with no extension to bone. Dressing changes per surgeon . She was on IV Vanco for 5 days. Was seen by ID and recommended? PO doxy---she is now PO Doxy D4 Venous doppler no DVT History of diabetes:fs seems improving hold Metformin hold ?Insulin sliding scale below 200. hx copd : no sob continue albuterol,taper oxygen slowly DVT prophylaxis:? Lovenox Code status:? Full code Need for inaptient: infected wound of the legs s/p surgery for debridment, and now need short term rehab Plan of care discussed with her including going to rehab PT is recommending J[facility] CM working on bed availability otherwise she's ready to for DC. Quality Stroke Does the patient have a stroke diagnosis?: No VTE Prior VTE?: No VTE Risk Level:: Medical - moderate - high VTE Device Contraindication: Treatment Not Indicated VTE Drug Contraindication: N/A - Med Ordered
[2022-01-22 11:22] LABS: Glucose, Whole Blood 157 mg/dL (60-115)
--- NOTE | 2022-01-22 13:09 | MHC.CM.PN ---
keyla meza went for auth this morning, however pt's insurance can take 2 days, plan for d/c once auth comes through.
--- NOTE | 2022-01-22 14:31 | PM.DS ---
DS: Providers Provider Date of Service: 01/22/22 Date of admission: 01/14/22 20:01 Primary care physician: Adin Almanza MD Consults: 01/14/22 20:01 Consult to Infectious Diseases Routine Consulting Provider: Megan Rivas Reason for consultation: leg wounds with maggots Consult to Vascular Surgery Routine Consulting Provider: Hao Negro Reason for consultation: Leg wounds with maggots; Attending physician on discharge: Zeyad Britt Discharging clinician: Zeyad Britt DS: Diagnosis Discharge Diagnosis (1) Bilateral leg ulcer: Status: Acute (2) COPD (chronic obstructive pulmonary disease): Status: Acute (3) Hypoglycemia: Status: Acute DS: Summary Hospital Course Hospital Course: 81-year-old female with a past medical history of diabetes, varicose veins, chronic bilateral lymphedema, anxiety, depression, bilateral leg wounds-follows with Wound Clinic, tobacco dependence, COPD, hypertension, peripheral neuropathy presented to the hospital today with a chief complaint of bilateral leg wounds.? Patient mentions that she does not check on her wound state likely; has called her vascular surgery Dr. Dr. Negro who suggested her to go to the clinic; after patient was being seen in the clinic patient was supposed to go to the ER given left leg wounds has maggots.? Patient denies any pain.? Reports she has swelling but always has swelling.? Denies any fevers.? Denies any chest pain or palpitations.? Denies any GI symptoms. Reports he is independent of ADLs.? Review of all other systems is negative except mentioned above ER course: Per ER team patient noted to have bilateral legs, left leg wounds have maggots in place; had debridement done with cleaning of the wounds; discussed with Dr. Negro-who suggested admission to the hospital for IV antibiotics and possible further debridement in the morning.? Recommended to give the patient NPO.? Dr. Negro also mentioned that patient has for home conditions.? Labs were essentially benign, patient was afebrile; patient was given IV vancomycin.? Admitted to the hospital for further management. Hospital course: patient admitted for bilateral leg wound with magots-Patient on presentation noted to have maggots in the left leg wound-status post debridement in the ER.? s/p OR debridment by Dr. Negro 9/30 with no extension to bone. Dressing changes per surgeon . She was on IV Vanco for 5 days. Was seen by ID and vascular: recommended? PO doxy---she is now PO Doxycycline ,please complete course of antibiotics . follow up outpatient with vascular and wound care. please see dressing instruction by vascular above. am type 2 with asymptomatic hypoglycemia: please check Hba1c levels in rehab. hold oral hypoglycemic agents . hold ?Insulin sliding scale below 200. hx of copd: continue albuterol, taper oxygen in rehab ,otherwise need home oxygen eval upon discharge. Patient going to rehab, will benefit from less than 30 day her rehab stay. Time Spent with Patient Time attestation: Total time spent providing and/or coordinating discharge services: Discharge coordination time: Greater than 30 minutes Quality: Safe Use of Opioids Does Pt have an Active Cancer Diagnosis on the Problem List?: No Quality: Stroke Does the patient have a stroke diagnosis?: No Physical Exam Vital Signs: Vital Signs: Last Vital Signs Temp 98.5 F 01/22/22 11:02 Pulse 75 01/22/22 11:02 Resp 18 01/22/22 11:02 BP 109/55 L 01/22/22 11:02 Pulse Ox 98 01/22/22 11:02 O2 Del Method 01/22/22 11:02 O2 Flow Rate 2 01/22/22 11:02 BMI result Body Mass Index 15.9 General: AO X 3, no acute distress, Resp:? CTA bilateral CVS: S1,S2,RRR GI: +BS, NT, no distention Skin: legs dressing in place post surgery Neuro:? motor grossly intact Psych: appropriate affect DS: Data Data Completed and Pending Labs on day of discharge: Laboratory Results - last 24 hr 01/21/22 01/21/22 01/21/22 15:21 15:49 16:53 Creatinine Estim Creat Clear Calc Estimated GFR POC Glucose 41 L* 72 68 01/21/22 01/21/22 01/21/22 18:31 20:44 22:02 Creatinine Estim Creat Clear Calc Estimated GFR POC Glucose 78 111 98 01/21/22 01/22/22 01/22/22 23:29 00:26 05:15 Creatinine 0.63 Estim Creat Clear Calc 46.6 Estimated GFR > 60 POC Glucose 65 79 01/22/22 01/22/22 07:21 11:10 Creatinine Estim Creat Clear Calc Estimated GFR POC Glucose 102 157 H Additional Comments Additional comments: US/US venous duplex LE BI IMPRESSION: No DVT demonstrated in the bilateral lower extremity. No abscess seen. XR/XR chest 1V IMPRESSION: COPD. No acute intrathoracic disease. Significant interval weight loss. Discharge Plan Discharge Anticipated Discharge Date/Time: 01/22/22 14:34 Patient Disposition: Home, Self-Care Discharge Diagnosis: leg cellulitis /wounds Referrals: [facility] [Outside] - 1 Day (SHORT TERM REHAB) Adin Almanza MD [Primary Care Provider] - 1 Week Hao Negro MD [Physician] - 2 Weeks (follow up outpatient) Discharge Medications: New doxycycline hyclate 100 mg Tablet 100 mg PO Q12H Qty: 20 0RF insulin lispro [Humalog U-100 Insulin] 100 unit/mL Solution See Protocol subcut QIDACHS Qty: 1 0RF Protocol: Insulin Correction Scale Less than or equal to 110 ---- Give (units): 0 111 to 150 Give (units): 0 151 to 200 Give (units): 0 201 to 250 Give (units): 2 251 to 300 Give (units): 6 301 to 350 Give (units): 8 Greater than 350 Give (units): 10 Call MD if Blood Glucose > : 350 Continued miscellaneous medical supply Misc See Rx Instructions miscellaneous .COMPLEX Qty: 1 0RF Rx Instructions: 1 pair diabetic shoes with insoles miscellaneous; (DME) compr.stocking,knee,long,small Misc See Rx Instructions .Route Qty: 12 0RF Rx Instructions: As directed- knee high- 20mmHg ezetimibe-simvastatin 10-80 mg tablet 1 tab PO DAILY Qty: 90 3RF albuterol sulfate [ProAir HFA] 90 mcg/actuation HFA aerosol inhaler 2 puff inhalation Q6H PRN (Reason: Wheezing) Held metformin 500 mg tablet 500 mg PO BID Qty: 60 6RF Hold Instructions: Resume on 02/03/22. start only if no hypoglycemia Discontinued glyburide 2.5 mg tablet 2.5 mg PO QAM Qty: 90 3RF Discharge Orders: Discharge Order (Routine); Ordered 01/22/22 Ordered By: Zeyad Britt Diet: Advance to usual diet Activity on Discharge: As tolerated Stand Alone Forms: Patient Portal Discharge page Activity Restrictions/Additional Instructions: Wound care upon discharge: xeroform, 4x4 and Kerlix wrap to be changed every other day bilaterally. Please call Dr. Negro at [phone] for 2 week follow up. patient should also have follow-up with wound care center Care Plan Goals: patient admitted for bilateral leg wound with magots-Patient on presentation noted to have maggots in the left leg wound-status post debridement in the ER.? s/p OR debridment by Dr. Negro 01/16 with no extension to bone. Dressing changes per surgeon . She was on IV Vanco for 5 days. Was seen by ID and recommended? PO doxy---she is now PO Doxycycline ,please complete course of antibiotics . follow up outpatient with vascular and wound care. please see dressing instruction by vascular above. asymptomatic hypoglycemia: please check Hba1c levels in rehab. hold oral hypoglycemic agents . hold ?Insulin sliding scale below 200. hx of copd: continue albuterol, taper oxygen in rehab ,otherwise need home oxygen eval upon discharge. Health Concerns: as above. Plan of Treatment: as above. Assessment: as above.
[2022-01-22 15:15] LABS: COVID-19 Test Negative (Negative)
[2022-01-22 15:16] VITALS: BP 103/55; PULSE 90; RESP 15; TEMP 36.8; O2SAT 93
--- NOTE | 2022-01-22 15:32 | MHC.CM.PN ---
Addendum entered by Landy Benavides RN 01/22/22 15:33: PT'S HCP [facility] NOTIFIED AT 2:30PM AT NUMBER ON FILE PER PT REQUEST. Original Note: IMM DELIVERED 01/22/22, PT DISCHARGING TO [facility] FOR [facility]SP[facility] AT 5PM.
[2022-01-22 16:15] LABS: Glucose, Whole Blood 159 mg/dL (60-115)
[2022-01-22 19:48] LABS: Glucose, Whole Blood 88 mg/dL (60-115)
[2022-01-22 20:00] VITALS: RESP 16
[2022-01-22] MEDS: Atorvastatin Calcium 40 MG TABLET PO (20:03)
[2022-01-22] MEDS: Enoxaparin Sodium 40 MG/0.4 ML SYRINGE SUBCUT (20:03)
[2022-01-23 00:34] VITALS: BP 128/60; PULSE 75; RESP 16; TEMP 36.7; O2SAT 92
[2022-01-23 03:47] VITALS: BP 125/54; PULSE 83; RESP 16; TEMP 36.6; O2SAT 95
[2022-01-23 08:00] VITALS: BP 105/57; PULSE 74; RESP 17; TEMP 36.9; O2SAT 93
--- NOTE | 2022-01-23 08:22 | MHC.CM.PN ---
PER NURSING STAFF AND PT, PT WAS PICKED UP AFTER 10PM OVER 5 HRS LATE AND SNF REFUSED PT SO PT WAS RETURNED AND D/C REVERSED, CM CONTACTED [facility] AND THEY DIDN'T HAVE PT ON BOARD OR KNOW WHAT HAPPENED, TRANSPORT THEREFORE SET UP W/ALERT WHO REPORT THEY CAN TRANSPORT AT 10:30AM.
[2022-01-23 09:18] LABS: Glucose, Whole Blood 99 mg/dL (60-115)
== END 2022-01-23 11:00 | DRG 982 ==
LOC: HO.ED 19:22 → HO.EDOVER 20:11 → HO.S3 01-15 18:45
PROVIDERS: Internal Medicine; Surgery Vascular Surgery; Admitting Provider Hospitalist; Emergency Provider Emergency Medicine; PCP Internal Medicine; Visit Provider Internal Medicine
DX: I87.313 Chronic venous hypertension (idiopathic) with ulcer of bilateral lower extremity (principal); E44.0 Moderate protein-calorie malnutrition; Z68.1 Body mass index [BMI] 19.9 or less, adult; L97.829 Non-pressure chronic ulcer of other part of left lower leg with unspecified severity; L97.819 Non-pressure chronic ulcer of other part of right lower leg with unspecified severity; F41.9 Anxiety disorder, unspecified; E11.42 Type 2 diabetes mellitus with diabetic polyneuropathy; B87.1 Wound myiasis; J44.9 Chronic obstructive pulmonary disease, unspecified; E11.649 Type 2 diabetes mellitus with hypoglycemia without coma; Z20.822 Contact with and (suspected) exposure to COVID-19; F17.210 Nicotine dependence, cigarettes, uncomplicated; Z71.6 Tobacco abuse counseling; Z88.0 Allergy status to penicillin; Z79.4 Long term (current) use of insulin; Z79.84 Long term (current) use of oral hypoglycemic drugs; Z79.899 Other long term (current) drug therapy
CPT/HCPCS: 36415; 71045; 80048; 80053; 80202; 82565; 82947; 83605; 85025; 87040; 87635; 93005; 93970; 97116; 97163; 97530; 99285; J1100; J1650; J2370; J2405; J3370

== ENCOUNTER 2022-01-30 07:42 | Outpatient (REF) | payer MEDICARE, SELFPAY ==
--- NOTE | ~2022-01-30 | US_ITS ---
EXAMINATION: US LOWER EXTREMITY VENOUS (REFLUX EXAM), BILATERAL CLINICAL INDICATION: Chronic venous insufficiency with lower extremity pain, swelling and open calf wounds COMPARISON: Ultrasound from 01/15/2022 TECHNIQUE: Color flow triplex imaging and compression Doppler was performed to evaluate both the deep and the superficial systems bilaterally. To evaluate the superficial system, the examination was performed in the upright position. Color-flow Doppler ultrasound and compression ultrasound were utilized. In addition, maneuvers were utilized to demonstrate reflux. FINDINGS: 1. DEEP VENOUS ULTRASOUND OF THE RIGHT LOWER EXTREMITY: Common Femoral Vein: Compressible, normal respiratory variation and augmented flow. Femoral Vein: Compressible, normal color flow and augmentation. Popliteal Vein: Compressible, normal augmentation. Deep Reflux: There is no evidence of reflux in the deep system in either the common femoral vein or the popliteal vein. There is no evidence of a Bonilla's cyst. 2. SUPERFICIAL ULTRASOUND WITH DOPPLER OF RIGHT LOWER EXTREMITY: GREAT SAPHENOUS VEIN: Saphenofemoral Junction: 0.6 cm; Reflux: 0 ms Proximal Thigh: 0.2 cm; Reflux: 0 ms Mid Thigh: 0.2 cm; Reflux: 0 ms Above Knee: 0.3 cm; Reflux: 0 ms At Knee: 0.2 cm; Reflux: 0 ms Below Knee: 0.3 cm; Reflux: 0 ms Mid Calf: Unable to evaluate Ankle: Unable to evaluate DUPLICATED MEDIAL GREAT SAPHENOUS VEIN: Diameter: None Imaged Reflux: NA DUPLICATED LATERAL GREAT SAPHENOUS VEIN: Diameter: 0.2 cm Reflux: None SMALL SAPHENOUS VEIN: Proximal: 0.2 cm; Reflux: 0 ms Distal: Unable to evaluate VEIN OF GIACOMINI: None Imaged. PERFORATORS: Location: None Imaged Size: NA Reflux: NA VARICOSITIES: Location: None Imaged Size: NA Reflux: NA 3. DEEP VENOUS ULTRASOUND OF THE LEFT LOWER EXTREMITY: Common Femoral Vein: Compressible, normal respiratory variation and augmented flow. Femoral Vein: Compressible, normal color flow and augmentation. Popliteal Vein: Compressible, normal augmentation. Deep Reflux: There is no evidence of reflux in the deep system in either the common femoral vein or the popliteal vein. There is no evidence of a Bonilla's cyst. 4. SUPERFICIAL ULTRASOUND WITH DOPPLER OF LEFT LOWER EXTREMITY: GREAT SAPHENOUS VEIN: Saphenofemoral Junction: 0.5 cm; Reflux: 0 ms Proximal Thigh: 0.4 cm; Reflux: 0 ms Mid Thigh: 0.3 cm; Reflux: 0 ms Above Knee: 0.3 cm; Reflux: 0 ms At Knee: 0.3 cm; Reflux: 0 ms Below Knee: 0.2 cm; Reflux: 1268 ms Mid Calf: Unable to evaluate Ankle: Unable to evaluate DUPLICATED MEDIAL GREAT SAPHENOUS VEIN: Diameter: None Imaged Reflux: NA DUPLICATED LATERAL GREAT SAPHENOUS VEIN: Diameter: None Imaged Reflux: NA SMALL SAPHENOUS VEIN: Proximal: 0.2 cm; Reflux: 0 ms Distal: Unable to evaluate VEIN OF GIACOMINI: None Imaged. PERFORATORS: Location: None Imaged Size: NA Reflux: NA VARICOSITIES: Location: None Imaged Size: NA Reflux: NA US/US venous duplex LE BI IMPRESSION: Right: No significant venous insufficiency within the visualized veins. Calf veins could not be evaluated due to overlying bandages Left: No significant venous insufficiency within the visualized veins. Calf veins could not be evaluated due to overlying bandages
== END 2022-01-30 07:43 | disposition home or self-care (01) ==
LOC: HO.US 07:42
PROVIDERS: Visit Provider Surgery Vascular Surgery
DX: I83.11 Varicose veins of right lower extremity with inflammation (principal)
CPT/HCPCS: 93970

== ENCOUNTER → 2022-02-03 13:36 | Outpatient (BNVA) | payer MEDICARE, SELFPAY | PROVIDERS: PCP Family Medicine; Visit Provider Surgery Vascular Surgery | DX: L97.919 Non-pressure chronic ulcer of unspecified part of right lower leg with unspecified severity (principal); L97.929 Non-pressure chronic ulcer of unspecified part of left lower leg with unspecified severity | CPT/HCPCS: 99212 ==

== ENCOUNTER 2022-04-09 11:02 | Outpatient (REF) | payer MEDICARE, SELFPAY ==
[2022-04-09 11:21] LABS: MANUAL DIFF FLAG NO
[2022-04-09 11:38] LABS: Basophils Percent Auto 0.3 % (0-2); Eosinophils Absolute Auto 0.1 X10*3/uL (0.0-0.4); Eosinophils Percent Auto 0.7 % (0-4); Hematocrit 46.6 % (37.0-47.0); Hemoglobin 14.7 g/dl (12.0-16.0); Imm Gran Abs Auto 0.02 X10*3/uL (0.00-0.03); Imm Gran Pct Auto 0.3 % (0.0-0.4); Lymphocytes Absolute Auto 0.9 X10*3/uL (1.2-4.9); Lymphocytes Percent Auto 12.2 % (20-40); Mean Corpuscular HGB Conc 31.5 g/dl (31.0-35.0); Mean Corpuscular Hemoglobin 30.1 pg (27.0-33.0); Mean Corpuscular Volume 95.5 fL (80.0-98.0); Mean Platelet Volume 9.3 fL (9.4-12.3); Monocytes Absolute Auto 0.4 X10*3/uL (0.1-1.2); Monocytes Percent Auto 4.9 % (2-11); Neutrophils Absolute Auto 5.8 x10*3/uL (2.0-8.3); Neutrophils Percent Auto 81.6 % (45-73); Platelet Count 281 X10*3/uL (160-400); Red Blood Count 4.88 X10*6/uL (4.20-5.50); Red Cell Distribution Width 13.7 % (11.0-16.0); White Blood Count 7.1 X10*3/uL (4.8-10.8)
[2022-04-09 13:18] LABS: Anion Gap 16 (12-20); Bilirubin Total 0.5 mg/dL (0.0-1.0); Blood Urea Nitrogen 14 mg/dL (9-16); Calcium 9.3 mg/dL (8.4-10.2); Carbon Dioxide 30 mmol/L (22-29); Chloride 100 mmol/L (96-108); Estimated Glomerular Filt Rate > 60; Glucose Fasting 195 mg/dL (60-99); Potassium 4.7 mmol/L (3.3-5.1); Sodium 141 mmol/L (135-145)
[2022-04-09 13:19] LABS: Alanine Aminotransferase 6 U/L (0-31); Albumin Level 3.5 g/dL (3.5-5.0); Alkaline Phosphatase 67 U/L (39-117); Aspartate Amino Transferase 12 U/L (5-31); Cholesterol 170 mg/dL; HDL Cholesterol 46 mg/dL; LDL Cholesterol Calculated 102 mg/dl; TSH reflex Free T4 1.52 uIU/mL (0.32-4.0); Total Protein 6.5 g/dL (6.5-8.0); Triglycerides 114 mg/dL
== END 2022-04-09 11:03 | disposition home or self-care (01) ==
LOC: HO.LAB 11:02
PROVIDERS: PCP Internal Medicine; Visit Provider Internal Medicine
DX: E78.00 Pure hypercholesterolemia, unspecified (principal); E55.9 Vitamin D deficiency, unspecified; I10 Essential (primary) hypertension
CPT/HCPCS: 36415; 80053; 80061; 82306; 84443; 85025

== ENCOUNTER 2022-04-10 15:33 | Outpatient (REF) | payer MEDICARE, SELFPAY ==
[2022-04-10 16:00] LABS: Appearance Urine Turbid; Color Urine Dark Yellow; Glucose Urine UA Negative (Negative); Leukocyte Esterase Urine Small (1+) (Negative); Nitrite Urine Negative (Negative); Specific Gravity - Urine >= 1.030 (1.005-1.025); UMIC TRIGGER UACC YES; Urine Blood Negative (Negative); Urine Ketones Trace mg/dL (Negative); Urine Protein 30 (1+) mg/dL (Neg-Trace)
[2022-04-10 16:21] LABS: Microalbum/Creatinine Ratio Ur 33.6 ug/mg cr
[2022-04-10 16:23] LABS: Bacteria Urine None Seen (None Seen); Calcium Oxalate Crystals Urine Present; Hyaline Casts Urine 0-2 /LPF (0-2); UACC Culture Trigger YES; WBC Urine 0-5 /HPF (0-5)
== END 2022-04-10 15:34 | disposition home or self-care (01) ==
LOC: HO.LNP 15:33
PROVIDERS: Visit Provider Internal Medicine
DX: I10 Essential (primary) hypertension (principal); E11.9 Type 2 diabetes mellitus without complications
CPT/HCPCS: 81001; 81003; 82043; 87086

== ENCOUNTER 2022-04-17 08:26 | Outpatient (RCR) | payer MEDICARE, SELFPAY | END 2022-11-17 16:00 | disposition home or self-care (01) | LOC: HO.WCC 08:26 | PROVIDERS: PCP Internal Medicine; Visit Provider Physician Assistant | DX: E11.622 Type 2 diabetes mellitus with other skin ulcer (principal); L97.811 Non-pressure chronic ulcer of other part of right lower leg limited to breakdown of skin; L97.821 Non-pressure chronic ulcer of other part of left lower leg limited to breakdown of skin; I87.313 Chronic venous hypertension (idiopathic) with ulcer of bilateral lower extremity; E11.51 Type 2 diabetes mellitus with diabetic peripheral angiopathy without gangrene; E11.40 Type 2 diabetes mellitus with diabetic neuropathy, unspecified; L60.2 Onychogryphosis; I10 Essential (primary) hypertension; Z87.891 Personal history of nicotine dependence; Z99.81 Dependence on supplemental oxygen | CPT/HCPCS: 11042; 11045; 97597; 97598; 97602; 99212; 99213; 99214 ==

== ENCOUNTER 2022-05-12 12:41 | Outpatient (REF) | payer MEDICARE, SELFPAY | END 2022-05-12 12:42 | disposition home or self-care (01) | LOC: HO.US 12:41 | PROVIDERS: PCP Internal Medicine; Visit Provider Physician Assistant | DX: Z13.89 Encounter for screening for other disorder (principal) ==

== ENCOUNTER → 2022-09-10 13:40 | Outpatient (BNVA) | payer MEDICARE, SELFPAY | PROVIDERS: PCP Internal Medicine; Visit Provider Internal Medicine | DX: J44.9 Chronic obstructive pulmonary disease, unspecified (principal); F17.210 Nicotine dependence, cigarettes, uncomplicated; R09.02 Hypoxemia; L97.919 Non-pressure chronic ulcer of unspecified part of right lower leg with unspecified severity; L97.929 Non-pressure chronic ulcer of unspecified part of left lower leg with unspecified severity | CPT/HCPCS: 99202 ==

== ENCOUNTER → 2022-10-12 13:17 | Outpatient (BNVA) | payer MEDICARE, SELFPAY | PROVIDERS: PCP Internal Medicine; Visit Provider Internal Medicine | DX: J44.9 Chronic obstructive pulmonary disease, unspecified (principal); R09.02 Hypoxemia; L97.919 Non-pressure chronic ulcer of unspecified part of right lower leg with unspecified severity; L97.929 Non-pressure chronic ulcer of unspecified part of left lower leg with unspecified severity; F17.200 Nicotine dependence, unspecified, uncomplicated | CPT/HCPCS: 94010; 99212 ==

== ENCOUNTER 2022-12-01 14:23 | Outpatient (RCR) | payer MEDICARE, SELFPAY | END 2023-05-03 17:00 | disposition home or self-care (01) | LOC: HO.WCC 14:23 | PROVIDERS: Visit Provider Physician Assistant | DX: E11.622 Type 2 diabetes mellitus with other skin ulcer (principal); L97.811 Non-pressure chronic ulcer of other part of right lower leg limited to breakdown of skin; L97.821 Non-pressure chronic ulcer of other part of left lower leg limited to breakdown of skin; I87.2 Venous insufficiency (chronic) (peripheral); Z79.84 Long term (current) use of oral hypoglycemic drugs; Z79.4 Long term (current) use of insulin; Z79.899 Other long term (current) drug therapy | CPT/HCPCS: 97597; 97598; 99213 ==

== ENCOUNTER 2022-12-10 13:37 | Outpatient (AMB) | payer MEDICARE, SELFPAY ==
--- NOTE | 2022-12-10 13:44 | MHC.OFFVIS ---
Intake Vital Signs 12/10/22 13:49 Height 5 ft 3 in BMI Reason not done Patient refused/unable BP 130/56 L Blood Pressure Location Lt brachial Position Sitting Pulse 77 Pulse Source Pulse Oximeter Pulse Oximetry (%) 97 Oxygen Delivery Method Room Air Oxygen Flow Rate 4 Intake Visit Reasons: hypoxemia, COPD follow-up Allergies penicillin V Allergy (Unknown, Verified 12/10/22 14:23) anaphylaxis Penicillins [PENICILLINS] Allergy (Unknown, Verified 12/10/22 14:23) HEART STOPS Medication List - Last Reconciled 12/10/22 by Wilbur Marks MD albuterol sulfate 90 mcg/actuation (ProAir HFA) 2 puffs inhalation Q6H PRN cholecalciferol (vitamin D3) 25 mcg PO DAILY 90 days compr.stocking,knee,long,small As directed- knee high- 20mmHg ezetimibe-simvastatin 10-80 mg 1 tab PO DAILY fluticasone furoate-vilanterol 200-25 mcg/dose (Breo Ellipta) 1 inh inhalation DAILY 30 days fluticasone propion-salmeterol 115-21 mcg/actuation (Advair HFA) 2 puffs inhalation Q12H 30 days fluticasone propion-salmeterol 115-21 mcg/actuation (Advair HFA) 2 puffs inhalation BID 30 days metformin 500 mg PO BID miscellaneous medical supply 1 pair diabetic shoes with insoles miscellaneous; Do you need a note to return to daycare/school/sports/work: No HPI hypoxemia HPI Details 82 YEARS OLD VERY PLEASANT, BUT WEAK AND VERY FRAIL , COMES FOR FOLLOW-UP AFTER 2 MONTHS, SHE CONTINUES TO USE OXYGEN 2 L/MINUTE 24 HOURS A DAY. SHE STAYS HOME MOSTLY AND GOES OUT IN THE WHEELCHAIR ONCE A WEEK TO THE WOUND CLINIC. SHE IS NON AMBULATORY. STILL HAS STASIS ULCERS ON BOTH LEGS AND IS GETTING TREATMENT AT THE WOUND CLINIC ALSO DRESSINGS AT HOME BY THE VISITING NURSES . ON HER LAST VISIT SHE WAS PRESCRIBED BREO-200, BUT THE INSURANCE WANTED TO CHANGE IT TO BRAND-NAME ADVAIR TWICE A DAY. SHE STILL HAS NOT BEEN ABLE TO GET THE INHALER . SHE HAS INTERMITTENT COUGH, NONPRODUCTIVE, NO ATTACKS OF WHEEZING. [facility] Medical History (Updated 12/10/22 @ 16:44 by Wilbur Marks MD) Anxiety Benign essential hypertension COPD (chronic obstructive pulmonary disease) COPD (chronic obstructive pulmonary disease) Diabetes mellitus Diffuse goiter GERD without esophagitis Intermittent palpitations Peripheral polyneuropathy Pure hypercholesterolemia Smoker Varicose veins of right lower extremity with inflammation Vitamin D deficiency Surgical History History of appendectomy History of laparoscopic cholecystectomy History of tonsillectomy History of total abdominal hysterectomy S/P BSO (bilateral salpingo-oophorectomy) Family History Father No problems noted. Mother No problems noted. Other Substance abuse Social History Household Members: None Housing: House Unable to assess alcohol history related to: Unknown Alcohol intake: former Patient Tobacco Use Status: Former Tobacco user Tobacco use type: Cigarette e-Cigarette/Vaping Use: Never Used Second Hand Smoke Exposure: No service: No Current occupational status: retired Cognitive needs: No Hearing needs: No Vision needs: Yes (reading glasses) Review of Systems Const All systems reviewed & are unremarkable except as noted in HPI and below Eyes Reports no additional complaints ENT Reports no additional complaints Card Denies chest pain, Denies syncope, Denies irregular heart rhythm and Reports dyspnea on exertion Resp Reports as per HPI and Reports dyspnea on exertion GI Reports no additional complaints Reports no additional complaints Musc Reports abnormal gait (Impaired gait impaired due to muscle weakness) and Reports muscle weakness (Generalized) Skin/Breast Reports system reviewed and no additional complaints, except as documented Neuro Reports abnormal gait (Impaired gait impaired due to muscle weakness) and Denies syncope Psych Reports no additional complaints Physical Exam Vital Signs: Last Vital Signs Pulse 77 12/10/22 13:49 BP 130/56 L 12/10/22 13:49 Pulse Ox 97 12/10/22 13:49 Oxygen Delivery Method Room Air 12/10/22 13:49 Oxygen Flow Rate 4 12/10/22 13:49 Const General: comfortable (BUT WEAK AND IN WHEELCHAIR), no acute distress, alert and awake Orientation/consciousness: patient oriented x3 HEENT Head: Yes normal to inspection General nose exam: No nasal polyps present and No nasal discharge present Face and sinus: Yes sinuses nontender Mouth: oropharynx normal Throat: Yes posterior oropharynx normal Eyes General: appearance normal, both eyes and all related structures Neck Neck: Yes normal visual inspection, Yes no lymphadenopathy, Yes trachea midline and Yes no JVD Thyroid: Thyroid normal Chest Chest palpation & inspection: normal inspection of the chest, normal palpation of entire chest wall and no tenderness Resp Other: PERCUSSION NOTE IS RESONANT, BREATH SOUNDS ARE DISTANT BUT EQUAL ON BOTH SIDES NO CREPITATIONS OR WHEEZES ARE HEARD . Cardio Palpation: normal PMI Rate: regular rate Rhythm: regular rhythm Heart sounds: no gallops and no murmurs GI Palpation (GI): Soft to palpation, Tenderness to palpation present (GI), No hepatosplenomegaly present and Palpable mass present Auscultation: normal bowel sounds Back/Spine/Pelvis Other: NOT EXAMINED Neuro General: patient oriented x3, No gait normal (GAIT IMPAIRED DUE TO GENERAL WEAKNESS OF LOWER EXTREMITIES) and no focal motor deficits Cranial nerves: Yes CN's II-XII intact bilaterally Extrem General: Yes normal to inspection, Yes no calf tenderness, Yes edema (HAS CHRONIC STASIS EDEMA OF THE LEGS, AT PRESENT DRESSED WITH TIMO BANDAGES) and Yes venous stasis dermatitis Psych Appearance: grossly normal Speech and movement: Normal speech and movement present Assessment & Plan Assessment & Plan (1) Smoker: Comment: SHE HAS BEEN A SMOKER OF ABOUT 1 PACK A DAY THROUGHOUT HER ADULT LIFE. BUT HAS QUIT SINCE HER RECENT HOSPITALIZATION. SHE DEFINITELY HAS VERY SEVERE DEGREE OF CHRONIC OBSTRUCTIVE PULMONARY DISEASE. Code(s): F17.200 - Nicotine dependence, unspecified, uncomplicated (2) Bilateral leg ulcer: Comment: CHRONIC EXTENSIVE STASIS EDEMA AND STASIS ULCERATIONS ON BOTH LEGS. CURRENTLY BEING TREATED BY VISITING NURSES 3 TIMES A DAY WITH COMPRESSION BANDAGES. Code(s): L97.919 - Non-pressure chronic ulcer of unspecified part of right lower leg with unspecified severity; L97.929 - Non-pressure chronic ulcer of unspecified part of left lower leg with unspecified severity Qualifiers: Non-pressure ulcer stage: unspecified non-pressure ulcer stage Qualified Code(s): L97.919 - Non-pressure chronic ulcer of unspecified part of right lower leg with unspecified severity; L97.929 - Non-pressure chronic ulcer of unspecified part of left lower leg with unspecified severity (3) COPD (chronic obstructive pulmonary disease): Comment: PATIENT HAS HISTORY OF SMOKING, AND HAS QUIT SINCE HER HOSPITALIZATION PER SPIROMETRY SHE HAS EVIDENCE OF SEVERE OBSTRUCTIVE AIRWAY DISORDER. COMPLETE PULMONARY FUNCTION TEST CANNOT BE DONE IN HER CASE. PLAN : FOR HER CONVENIENCE I HAD PRESCRIBED BREO 200-25. BUT INSURANCE WOULD COVER ONLY BRAND-NAME AIRDUO 113-14 ONE INH B.I.D. PROAIR 2 PUFFS Q 4-6 HOURS P.R.N. Code(s): J44.9 - Chronic obstructive pulmonary disease, unspecified Qualifiers: COPD type: unspecified COPD Qualified Code(s): J44.9 - Chronic obstructive pulmonary disease, unspecified (4) Hypoxemia: Comment: SHE WAS FOUND TO HAVE HYPOXEMIA WHEN IN THE HOSPITAL AND THEN AT REHAB FACILITY. PATIENT WAS DISCHARGED HOME ON STATIONARY OXYGEN CONCENTRATOR ALONG WITH THE PORTABLE UNIT. SHE REQUIRES O2 3 L/MINUTE WHEN RESTING, AND MAY INCREASE UP TO 4 L/MINUTE WHEN DOING ANY PHYSICAL ACTIVITY IN THE HOUSE. Code(s): R09.02 - Hypoxemia Medications: New AirDuo Digihaler 113 mcg-14 mcg/actuation (fluticasone propion-salmeterol) 1 inh inhalation BID 1 ea 3RF COPD 30 days NS Coding Level of Care Code Est Pt Level 3 (74521) Diagnoses Smoker F17.200 Bilateral leg ulcer L97.919; L97.929 Non-pressure ulcer stage: unspecified non-pressure ulcer stage COPD (chronic obstructive pulmonary disease) J44.9 COPD type: unspecified COPD Hypoxemia R09.02
[2022-12-10 13:49] VITALS: BP 130/56; PULSE 77; O2SAT 97
== END 2022-12-10 14:22 | disposition home or self-care (01) ==
PROVIDERS: PCP Internal Medicine; Visit Provider Internal Medicine
DX: F17.200 Nicotine dependence, unspecified, uncomplicated (principal); L97.919 Non-pressure chronic ulcer of unspecified part of right lower leg with unspecified severity; L97.929 Non-pressure chronic ulcer of unspecified part of left lower leg with unspecified severity; J44.9 Chronic obstructive pulmonary disease, unspecified; R09.02 Hypoxemia
CPT/HCPCS: 99213

== ENCOUNTER → 2022-12-10 13:37 | Outpatient (BNVA) | payer MEDICARE, SELFPAY | PROVIDERS: PCP Internal Medicine; Visit Provider Internal Medicine | DX: J44.9 Chronic obstructive pulmonary disease, unspecified (principal); R09.02 Hypoxemia; L97.919 Non-pressure chronic ulcer of unspecified part of right lower leg with unspecified severity; L97.929 Non-pressure chronic ulcer of unspecified part of left lower leg with unspecified severity; Z87.891 Personal history of nicotine dependence; Z99.81 Dependence on supplemental oxygen; Z99.3 Dependence on wheelchair | CPT/HCPCS: 99212 ==

== ENCOUNTER 2022-12-23 14:16 | Outpatient (AMB) | payer MEDICARE, SELFPAY ==
--- NOTE | 2022-12-23 14:22 | MHC.PC.OV ---
Vital Signs 12/23/22 14:23 Height 5 ft 3 in Weight 90 lb 13.287 oz BMI 16.1 BP 110/80 Blood Pressure Location Lt brachial Position Sitting Pulse 72 Pulse Source Pulse Oximeter Pulse Oximetry (%) 95 Oxygen Delivery Method Nasal Cannula Oxygen Flow Rate 4 Intake Visit Reasons: COPD, DM, chronic leg ulcers Sales Attendant Building Materials Required: No Accompanied by: Self / Same As Patient Allergies penicillin V Allergy (Unknown, Verified 12/23/22 15:01) anaphylaxis Penicillins [PENICILLINS] Allergy (Unknown, Verified 12/23/22 15:01) HEART STOPS Medication List - Last Reconciled 12/23/22 by Adin Almanza MD albuterol sulfate 90 mcg/actuation (ProAir HFA) 2 puffs inhalation Q6H PRN cholecalciferol (vitamin D3) 25 mcg PO DAILY 90 days compr.stocking,knee,long,small As directed- knee high- 20mmHg ezetimibe-simvastatin 10-80 mg 1 tab PO DAILY fluticasone furoate-vilanterol 200-25 mcg/dose (Breo Ellipta) 1 inh inhalation DAILY 30 days fluticasone propion-salmeterol 113 mcg-14 mcg/actuation 1 inh inhalation BID 30 days NS fluticasone propion-salmeterol 115-21 mcg/actuation (Advair HFA) 2 puffs inhalation Q12H 30 days fluticasone propion-salmeterol 115-21 mcg/actuation (Advair HFA) 2 puffs inhalation BID 30 days metformin 500 mg PO BID miscellaneous medical supply 1 pair diabetic shoes with insoles miscellaneous; Tobacco use date assessed: 12/23/22 Fall risk assessment: No Falls in past year Last assessed Fall Risk: 12/23/22 Dental Screening Dental Screen Date: 12/23/22 Did you have a dental visit in the last 12 months?: No Did you have a dental problem in the last 6 months where you did not have access to dental care?: No Was dental information given to patient?: No HPI COPD, DM, chronic leg ulcers HPI Details Patient comes in today for her follow up visit She continues to follow up with the wound clinic every 1 to 2 weeks for her chronic leg ulcers, which have been reportedly healing well but gradually She continues to follow up as well with Dr. Marks for her pulmonary issues and states that Dr. Marks is currently still trying to get her insurance to cover her inhalers at the dose that she needs to be using them Is currently on oxygen inhalation 09/11 - is on 3 LPM at rest and advised that she can go up to 4 LPM if needed when she is moving around Patient states that she often has to take and keep some cough drops in her mouth to help with her recurrent cough Notes that she would also have a hard time breathing when her nose gets congested so she has to often clear out her nose when it starts to drain, especially at night or otherwise she would not be able to go to sleep States that she feels fatigued often but otherwise thinks that she is doing okay She denies any headaches or dizziness Denies any chest pains No nausea/vomiting, no abdominal pain No change in bowel habits noted Has not had any follow up labs done since March 2022 [facility] Medical History Anxiety Benign essential hypertension COPD (chronic obstructive pulmonary disease) COPD (chronic obstructive pulmonary disease) Diabetes mellitus Diffuse goiter GERD without esophagitis Intermittent palpitations Peripheral polyneuropathy Pure hypercholesterolemia Smoker Varicose veins of right lower extremity with inflammation Vitamin D deficiency Surgical History History of appendectomy History of laparoscopic cholecystectomy History of tonsillectomy History of total abdominal hysterectomy S/P BSO (bilateral salpingo-oophorectomy) Family History Father No problems noted. Mother No problems noted. Other Substance abuse Social History Household Members: None Housing: House Unable to assess alcohol history related to: Unknown Alcohol intake: former Patient Tobacco Use Status: Former Tobacco user Tobacco use type: Cigarette e-Cigarette/Vaping Use: Never Used Second Hand Smoke Exposure: No service: No Current occupational status: retired Cognitive needs: No Hearing needs: No Vision needs: Yes (reading glasses) Questionnaire PHQ-9 Over the last 2 weeks, how often have you been bothered by any of the following problems? 1. Little interest or pleasure in doing things: several days 2. Feeling down, depressed, or hopeless: several days 3. Trouble falling or staying asleep, or sleeping too much: several days 4. Feeling tired or having little energy: several days 5. Poor appetite or overeating: several days 6. Feeling bad about yourself - or that you are a failure or have let yourself or your family down: not at all 7. Trouble concentrating on things, such as reading the newspaper or watching television: not at all 8. Moving or speaking so slowly that other people could have noticed. Or the opposite - being so fidgety or restless that you have been moving around a lot more than usual: not at all 9. Thoughts that you would be better off or of hurting yourself in some way: not at all Total score: 5 Depression Screening Interpretation: Positive Depression Screening Follow-up: Existing condition, In treatment and Declines treatment 58418 - PHQ-9 Billing: Yes Source: Developed by Drs. Yariel Fried, Melissa Hester, Barron Carey and colleagues, with an educational jesse from [employer]. Thrive Questionnaire Date Thrive assessed: 12/23/22 I am a: Patient What is your living situation today?: I have a steady place to live Within the past 12 months, did the food you bought not last and you didn't have the money to get more?: Never true Within the past 12 months, did you worry whether your food would run out before you got money to buy more?: Never true Do you have trouble paying for medicines?: No Do you have trouble getting transportation to medical appointments?: No Do you have trouble paying your heating and electricity bill?: No Do you have trouble taking care of your child, family member or friend?: No Do you have trouble with day-to-day activities such as bathing, preparing meals, shopping, managing finances, etc.?: No Are you currently unemployed and looking for a job?: No Are you interested in more education?: No Please select the resources that you would like help with: None Currently or been in a relationship where the following occur: no concerns reported AUDIT C Alcohol Use Questionnaire (AUDIT-C) 1. How often do you have a drink containing alcohol?: Never 3. How often do you have six or more drinks on one occasion?: Never Total Score: 0 Score Reviewed/Action Taken: Yes LILLIAN-7 AMB Questionnaire LILLIAN-7 Date LILLIAN - 7 assessed: 12/23/22 Feeling nervous, anxious, or on edge: 0 = Not at all Not being able to stop or control worryin = Not at all Worrying too much about different things: 0 = Not at all Trouble relaxin = Not at all Being so restless that it is hard to sit still: 0 = Not at all Becoming easily annoyed or irritable: 0 = Not at all Feeling afraid as if something awful might happen: 0 = Not at all Total LILLIAN-7 score (0-4 normal; 5-9 mild; 10-14 moderate; 15-21 severe): 0 Source: Developed by Drs. Yariel Fried, Melissa Hester, Barron Carey and colleagues, with an educational jesse from [employer]. Review of Systems Const Denies chills, Reports fatigue, Denies fever(s), Denies headache(s) and Reports weakness ENT Denies dysphagia, Denies dizziness, Denies otalgia, Denies headache(s), Reports nasal congestion (at times), Denies neck pain, Denies odynophagia and Denies sore throat Card Details: Patient appears very SOB even with her oxygen on - is presently at 3 LPM and she has very little activity tolerance Denies chest pain, Denies palpitations and Reports dyspnea on exertion Resp Denies cough, Reports dyspnea on exertion and Denies wheezing GI Denies abdominal pain, Denies change in bowel habits, Denies dysphagia, Denies heartburn, Denies nausea, Denies odynophagia and Denies vomiting Denies difficulty voiding, Denies nocturia and Denies dysuria Musc Denies arthralgias and Denies neck pain Skin/Breast Details: (+) chronic sores on both lower legs - gradually improving, per the wound clinic Reports skin ulcer (see HPI) Neuro Denies dizziness, Denies headache(s) and Reports weakness Endo Reports fatigue and Denies palpitations Valentín/Lymph Details: on and off swelling of both lower legs and feet Aller/Immun Denies wheezing Physical exam (Primary Care) Vital Signs: Last Vital Signs Pulse 72 12/23/22 14:23 BP 110/80 12/23/22 14:23 Pulse Ox 95 12/23/22 14:23 Oxygen Delivery Method Nasal Cannula 12/23/22 14:23 Oxygen Flow Rate 4 12/23/22 14:23 BMI result Body Mass Index 16.1 Tobacco/Smoking Status: Tobacco use Status Tobacco use date assessed 12/23/22 12/23/22 14:26 Patient Tobacco Use Status Former Tobacco user 12/23/22 14:26 Tobacco use type Cigarette 12/23/22 14:26 e-Cigarette/Vaping Use Never Used 12/23/22 14:26 PHQ-9: PHQ-9 Score PHQ-9: Total score 5 12/23/22 15:01 Depression Screening Interpretation: Positive Depression Screening Follow-up: Existing condition, In treatment and Declines treatment Thrive Assessment: Date of Thrive Assessment Date Thrive assessed 12/23/22 12/23/22 14:26 Currently or been in a relationship where the following occur: no concerns reported Const General: no acute distress, alert and tired appearing Orientation/consciousness: patient oriented x3 HENMT Ears: TM's normal bilaterally and EAC's normal Throat: Yes posterior oropharynx normal and Yes tonsils normal (no TP congestion noted) Neck Neck: Yes no lymphadenopathy and Yes supple Resp Auscultation: no rales, rhonchi (occasional) throughout, no wheezes and diminished lung sounds bilateral Cardio Rate: regular rate Rhythm: regular rhythm Heart sounds: no murmurs GI Palpation (GI): Soft to palpation and nontender Auscultation: normal bowel sounds Skin Other: (+) few small tears of skin on both lower legs; (+) trace edema bilaterally Neuro General: patient oriented x3 Gait exam (Neuro): Antalgic gait present Extrem Other: trace non pitting b/l LE edema. No redness, warmth. General: No clubbing, No cyanosis and Yes edema (trace bipedal edema) Results AMB Hemoglobin A1c AMB Hemoglobin A1c 8.2 % Last Edit by Viry Devlin on 12/23/22 15:09 Assessment and Plan Assessment & Plan (1) COPD (chronic obstructive pulmonary disease): Comment: PATIENT HAS HISTORY OF SMOKING, AND HAS QUIT SINCE HER HOSPITALIZATION PER SPIROMETRY SHE HAS EVIDENCE OF SEVERE OBSTRUCTIVE AIRWAY DISORDER. COMPLETE PULMONARY FUNCTION TEST CANNOT BE DONE IN HER CASE. PLAN : FOR HER CONVENIENCE I HAD PRESCRIBED BREO 200-25. BUT INSURANCE WOULD COVER ONLY BRAND-NAME AIRDUO 113-14 ONE INH B.I.D. PROAIR 2 PUFFS Q 4-6 HOURS P.R.N. Code(s): J44.9 - Chronic obstructive pulmonary disease, unspecified Qualifiers: COPD type: unspecified COPD Qualified Code(s): J44.9 - Chronic obstructive pulmonary disease, unspecified Plan: She has been reportedly been prescribed Breo Ellipta but insurance would only cover AirDuo Continue AirDuo 113-14 mcg 1 inhalation BID and Albuterol HFA 2 inhalations Q 6 hours PRN She remains on oxygen inhalation at 3 LPM at rest and can go up to 4 LPM if needed when she is moving around although her activity tolerance appears very limited (2) Bilateral leg ulcer: Comment: CHRONIC EXTENSIVE STASIS EDEMA AND STASIS ULCERATIONS ON BOTH LEGS. CURRENTLY BEING TREATED BY VISITING NURSES 3 TIMES A DAY WITH COMPRESSION BANDAGES. Code(s): L97.919 - Non-pressure chronic ulcer of unspecified part of right lower leg with unspecified severity; L97.929 - Non-pressure chronic ulcer of unspecified part of left lower leg with unspecified severity Qualifiers: Non-pressure ulcer stage: unspecified non-pressure ulcer stage Qualified Code(s): L97.919 - Non-pressure chronic ulcer of unspecified part of right lower leg with unspecified severity; L97.929 - Non-pressure chronic ulcer of unspecified part of left lower leg with unspecified severity Plan: Slowly improving - per the Wound clinic Follow up with the Wound clinic as scheduled for continuing management (3) Lymphedema: Code(s): I89.0 - Lymphedema, not elsewhere classified Plan: Primarily stasis edema Reminded patient again to keep her legs and feet elevated as often as she can throughout the day to help manage her edema, and that wearing compression stockings when she is going to be on her feet for extended periods of time will help keep her edema from getting worse Follow up with vascular surgery as scheduled (4) Diabetes mellitus: Code(s): E11.9 - Type 2 diabetes mellitus without complications Qualifiers: Diabetes mellitus type: type 2 Diabetes mellitus bed bug exterminator insulin use: without intermediate use Diabetes mellitus complication status: without complication Qualified Code(s): E11.9 - Type 2 diabetes mellitus without complications Plan: In-office HgbA1c done today is at 8.2% (was at 7.5% a few months ago) - goal is at least < 7.5% Reinforced diabetic diet Continue Metformin 500 mg BID and Tradjenta 5 mg QD Was previously on Glyburide but this was discontinued when patient was admitted to [facility] a few months ago She is also supposedly on Humalog with meals and at bedtime per sliding scale but patient admits that she has not been using this as she finds it too complicated to manage (5) Benign essential hypertension: Code(s): I10 - Essential (primary) hypertension Plan: Reinforced low sodium diet - goal is systolic BP of at least 130 to 140 mm Was on Lisinopril 5 mg QD previously but this was also discontinued when she was last admitted a few months ago (6) Pure hypercholesterolemia: Code(s): E78.00 - Pure hypercholesterolemia, unspecified Plan: Was again not able to get her follow up labs done prior to today's visit Reinforced low cholesterol diet Continue Ezetimibe-Simvastatin 10-80 mg QD Will have patient recheck her labs in 3 months for follow up - advised to try to get these done as she has not had any follow up labs done since March 2022 (7) Vitamin D deficiency: Code(s): E55.9 - Vitamin D deficiency, unspecified Plan: Continue Vitamin D3 1000 units QD (8) Anxiety: Code(s): F41.9 - Anxiety disorder, unspecified Plan: States again that this is adequately controlled and she does not feel that she needs any Rx at this time Plan Follow up in 3 months Orders: Orders Vitamin B12 and Folate 3 Months E53.8 - Deficiency of other specified B group vitamins Comprehensive [place]. Panel Fast 3 Months E78.00 - Pure hypercholesterolemia, unspecified Hemoglobin A1c 3 Months E11.9 - Type 2 diabetes mellitus without complications Lipid Panel 3 Months E78.00 - Pure hypercholesterolemia, unspecified TSH reflex Free T4 3 Months E78.00 - Pure hypercholesterolemia, unspecified Vitamin D 25-OH Total 3 Months E55.9 - Vitamin D deficiency, unspecified Microalbumin, Random (w Creat) 3 Months E11.9 - Type 2 diabetes mellitus without complications Complete Blood Count Auto Diff 3 Months I10 - Essential (primary) hypertension UA CC w/rflx Micro + Cult 3 Months R30.0 - Dysuria AMB Hemoglobin A1c Today E11.9 - Type 2 diabetes mellitus without complications Coding Level of Care Code Est Pt Level 4 (87961) Diagnoses COPD (chronic obstructive pulmonary disease) J44.9 COPD type: unspecified COPD Bilateral leg ulcer L97.919; L97.929 Non-pressure ulcer stage: unspecified non-pressure ulcer stage Lymphedema I89.0 Diabetes mellitus E11.9 Diabetes mellitus type: type 2 Diabetes mellitus intermediate insulin use: without bed bug exterminator use Diabetes mellitus complication status: without complication Benign essential hypertension I10 Pure hypercholesterolemia E78.00 Vitamin D deficiency E55.9 Anxiety F41.9
[2022-12-23 14:23] VITALS: BP 110/80; PULSE 72; O2SAT 95; BMI 16.1
== END 2022-12-23 15:14 | disposition home or self-care (01) ==
PROVIDERS: PCP Internal Medicine; Visit Provider Internal Medicine
DX: J44.9 Chronic obstructive pulmonary disease, unspecified (principal); E11.9 Type 2 diabetes mellitus without complications; I10 Essential (primary) hypertension; E55.9 Vitamin D deficiency, unspecified; F41.9 Anxiety disorder, unspecified; L97.919 Non-pressure chronic ulcer of unspecified part of right lower leg with unspecified severity; L97.929 Non-pressure chronic ulcer of unspecified part of left lower leg with unspecified severity; I89.0 Lymphedema, not elsewhere classified; E78.00 Pure hypercholesterolemia, unspecified
CPT/HCPCS: 83036; 99214